=== PATIENT | male | born 1930 | race Caucasian/White ===

== ENCOUNTER 2017-10-13 13:21 | Emergency (ER) | payer MEDICARE, BC ==
--- NOTE | 2017-10-13 14:19 | RAD ---
RIGHT HIP TWO VIEWS: History: Right hip pain. FINDINGS: Mild joint space narrowing with moderate osteophytosis and subchondral sclerosis. Slight irregularity of the articular surface contour of the femoral head. No acute fracture, dislocation, or aggressive osseous erosions. IMPRESSION: Moderate osteoarthritic changes right hip. POS: [facility]
--- NOTE | 2017-10-13 14:20 | RAD ---
PELVIS ONE VIEW: History: Pain. FINDINGS: Bony pelvis is intact. Sacral ala are preserved. Contour of the left and right femoral head are maint ained. Mild degenerative changes are noted. No hip fracture. IMPRESSION: Mild degenerative change of the right and left hip. POS: [facility]
[2017-10-13] MEDS ORDERED: Ketorolac Tromethamine 30 MG/ML VIAL ONE (14:48)
== END 2017-10-13 15:00 | disposition home or self-care (01) ==
LOC: ERS 13:21
DX: M16.11 Unilateral primary osteoarthritis, right hip (principal); I48.91 Unspecified atrial fibrillation; E03.9 Hypothyroidism, unspecified; I10 Essential (primary) hypertension; Z85.46 Personal history of malignant neoplasm of prostate; Z79.899 Other long term (current) drug therapy
CPT/HCPCS: 72170; 96372; J1885

== ENCOUNTER 2017-11-14 04:40 | Emergency (ER) | payer MEDICARE, BC ==
--- NOTE | 2017-11-14 11:17 | CT ---
PRELIMINARY REPORT/[facility]/EMERGENTY AFTER-HOURS PROCEDURE CT Head Without Intravenous Contrast CLINICAL HISTORY: The patient is a 87 years male; Injury or trauma; Fall; Initial encounter; Abrasion; Head, generalize d; Patient HX: Fall tonight - C/O head lac - denies neck pain - denies loc - no other complaints Exam ination order is timed 11/14/2017 5:09 AM. TECHNIQUE: Axial computed tomography images of the head/brain without intravenous contrast. COMPARISON: No relevant prior studies available. FINDINGS: BRAIN: There is no acute intracranial hemorrhage. There is mild lucency in the cerebral white matter, likely microvascular disease although non-specific. Higgins white differentiation is intact. There are no extra-axial fluid collections. No evidence of mass. There is no mass effect or midline shift. VENTRICLES: The ventricles and sulci are proportionally enlarged, consistent with age-related volume loss / atrophy. No hydrocephalus. BONES/JOINTS: No acute fracture. SOFT TISSUES: Unremarkable as visualized. VASCULATURE: There is vascular calcification. SINUSES: Unremarkable as visualized. No acute sinusitis. MASTOID AIR CELLS: Unremarkable as visualized. No mastoid effusion. IMPRESSION: 1. No evidence of acute intracranial abnormality. No evidence of acute infarction, hemorrhage, or mas s. 2. Senescent changes. Thank you for allowing us to participate in the care of your patient. Dictated and Authenticated by: Yaneth Shaver MD 11/14/2017 5:33 AM Central Time ([place] & [place]) FINAL REPORT NONCONTRAST HEAD CT: Date: 11/14/17 HISTORY: Fall. Head laceration. Pain. FINDINGS: This report is in agreement with the preliminary report by [facility]. No intracranial post-traumatic seque lae. POS: [facility]
== END 2017-11-14 06:08 | disposition home or self-care (01) ==
LOC: ERS 04:40
DX: S01.01XA Laceration without foreign body of scalp, initial encounter (principal); I48.91 Unspecified atrial fibrillation; E03.9 Hypothyroidism, unspecified; I10 Essential (primary) hypertension; Z79.899 Other long term (current) drug therapy; W01.198A Fall on same level from slipping, tripping and stumbling with subsequent striking against other object, initial encounter
CPT/HCPCS: 12001; 70450

== ENCOUNTER 2017-12-08 19:32 | Emergency (ER) | payer MEDICARE, BC ==
[2017-12-08] MEDS ORDERED: Ketorolac Tromethamine 30 MG/ML VIAL ONE (21:01)
--- NOTE | 2017-12-08 21:18 | RAD ---
RIGHT KNEE: 12/08/17 Four views. HISTORY: Knee pain. There are moderate degenerative changes present. There is medial joint narrowing. Hypertrophic spurri ng from all joint compartments. Prominent degenerative change at the patellofemoral joint. No evidenc e of joint effusion. No evidence of fracture or acute abnormality. IMPRESSION: Moderate degenerative changes right knee. POS: [facility]
== END 2017-12-08 21:30 | disposition home or self-care (01) ==
LOC: ERS 19:32
DX: M25.561 Pain in right knee (principal); I48.91 Unspecified atrial fibrillation; I10 Essential (primary) hypertension; E03.9 Hypothyroidism, unspecified
CPT/HCPCS: 96372; J1885

== ENCOUNTER 2017-12-13 07:33 | Emergency (ER) | payer MEDICARE, BC ==
[2017-12-13] MEDS ORDERED: Ondansetron ODT 4 MG TAB ONE (08:49)
--- NOTE | 2017-12-13 09:16 | RAD ---
RIGHT HIP 2 VIEWS: Date: 12/13/17 HISTORY: Pain without trauma. COMPARISON: Radiograph from 10/13/17. FINDINGS: There is complete collapse of the right femoral head. There is developing early secondary osteoarthri tic changes. Right obturator ring is intact. IMPRESSION: Complete articular surface collapse of the right femoral head. This may be sequelae of avascular necr osis, less likely marrow infiltrative process. POS: [facility]
--- NOTE | 2017-12-13 09:17 | RAD ---
PELVIS AP STANDARD: Date: 12/13/17 HISTORY: Pain without trauma. COMPARISON: Radiograph dated 10/13/17. FINDINGS: There is complete articular surface collapse of the right femoral head. Mild degenerative changes of the left hip. Obturator rings are intact. 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 POS: [facility]
[2017-12-13] MEDS ORDERED: HYDROcodone/Acetaminophen 10/325 mg Tablet ONE (10:13)
== END 2017-12-13 10:17 | disposition home or self-care (01) ==
LOC: ERS 07:33
DX: M25.551 Pain in right hip (principal); I48.91 Unspecified atrial fibrillation; E03.9 Hypothyroidism, unspecified; I10 Essential (primary) hypertension; Z79.899 Other long term (current) drug therapy
CPT/HCPCS: 72170; 96372; J2270; Q0162

== ENCOUNTER 2017-12-14 18:27 | Emergency (ER) | payer MEDICARE, BC ==
[2017-12-14 19:41] LABS: #Eosinphils 0.3 thou/uL (0.0-0.7); #Lymphocytes 0.9 thou/uL (1.20-3.40); #Monocytes 0.7 thou/uL (0.11-0.59); %Basophils 0.4 % (0.0-1.0); %Eosinophils 3.5 % (0.0-10.0); %Lymphocytes 9.8 % (21.0-51.0); %Monocytes 7.7 % (0.0-10.0); %Neutrophils 78.6 % (42.0-75.0); Hemoglobin 12.7 g/dL (14.0-18.0); Mean Corpuscular HGB CONC 35.2 g/dL (32.0-36.0); Platelet Count 168 thou/uL (130-400); RBC Distribution Width 11.4 % (11.5-14.5); Red Blood Cell (RBC) Count 3.53 mill/uL (4.70-6.10); White Blood Cell (WBC) Count 8.9 thou/uL (4.8-10.8)
[2017-12-14 19:48] LABS: INR-International Normal Ratio 1.1; PTT 33.8 SEC (22.9-36.1); Prothrombin Time 13.8 SEC (12.0-14.7)
[2017-12-14 19:58] LABS: ALT (SGPT) 18 U/L (8-55); AST (SGOT) 20 U/L (5-34); Albumin 3.8 g/dL (3.4-4.8); Alkaline Phosphatase 120 U/L (40-150); Anion Gap 13 mmol/L (10-20); BUN (Urea Nitrogen) 38 mg/dL (8.4-25.7); Bilirubin, Total 0.7 mg/dL (0.2-1.2); Calc. Creatinine Clearance 0 mL/min (70-130); Carbon Dioxide 24 mmol/L (23-31); Chloride 106 mmol/L (98-107); Estimated GFR-MDRD 41; Globulin 3.4 g/dL (2.4-3.5); Glucose 105 mg/dL (83-110); Potassium 5.2 mmol/L (3.5-5.1); Protein, Total 7.2 g/dL (5.8-8.1)
[2017-12-14 20:03] LABS: Sodium 138 mmol/L (136-145)
--- NOTE | 2017-12-14 21:44 | CT ---
CT PELVIS: 12/14/17 HISTORY: Right hip pain. Unable to bear weight. Patient has a hip replacement planned on Monday. COMPARISON: None. CORRELATION: Pelvic radiograph 12/13/17. FINDINGS: Visualized alimentary canal and pelvic structures are unremarkable. There are bilateral inguinal bhupinder ias containing fat. There is preservation of the sacral ala. There is no evidence of a sacral fracture. The bony pelvis i s intact. There is mild degenerative change with osteophyte formation in the left hip joint space. There is collapse of the right femoral head with sclerosis and remodeling. There is hyperdensity invo lving the right hip joint space with increased fluid. There is thinning of the posterior acetabulum. The constellation of findings may be due to vascular necrosis with remodeling. The possibility of a s eptic joint cannot be excluded. 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 IMPRESSION: Findings in the right hip as described above. Differential considerations include avascular necrosis versus a septic joint with resultant collapse and remodeling of the femoral head and posterior acetab ulum. POS: [facility]
== END 2017-12-15 01:07 ==
LOC: ERS 18:27
DX: M25.551 Pain in right hip (principal); E86.0 Dehydration; R26.2 Difficulty in walking, not elsewhere classified; I48.91 Unspecified atrial fibrillation; E03.9 Hypothyroidism, unspecified; I10 Essential (primary) hypertension; Z79.899 Other long term (current) drug therapy
CPT/HCPCS: 36415; 72192; 80053; 85025; 85610; 85730; 86850; 86900; 86901; 93005

== ENCOUNTER 2017-12-18 | Outpatient (CLI) | payer MEDICARE, BC | END 2017-12-18 14:02 | disposition home or self-care (01) | DX: Z01.818 Encounter for other preprocedural examination (principal); M16.11 Unilateral primary osteoarthritis, right hip ==

== ENCOUNTER 2017-12-18 14:00 | Inpatient (IN) | payer MEDICARE, BC ==
[2017-12-18 14:23] VITALS: BMI 26.4
[2017-12-19] MEDS ORDERED: Sodium Chloride 0.9% 100 ML ONE (11:39)
[2017-12-19] MEDS ORDERED: CEFAZOLIN/Water 2 GM/20 ML SYRINGE ONE (11:39)
[2017-12-19] MEDS ORDERED: Vancomycin HCl 1.5 GM in Sodium Chloride 0.9% 250 ML 300 ML IVPB SCH (11:45)
[2017-12-19] MEDS ORDERED: Zolpidem Tartrate 5 MG TAB PO PRN ×2 (11:49→13:00)
[2017-12-19] MEDS ORDERED: Fentanyl 100 MCG/2 ML VIAL SLOW IVP PRN (11:49)
[2017-12-19] MEDS ORDERED: Promethazine HCl 25 MG/ML VIAL IM PRN ×2 (11:49→13:00)
[2017-12-19] MEDS ORDERED: Acetaminophen 325 MG TAB PO PRN (11:49)
[2017-12-19] MEDS ORDERED: diphenhydrAMINE 25 MG CAP PO PRN ×3 (11:49→13:00)
[2017-12-19] MEDS ORDERED: traMADol HCl 50 MG TAB PO PRN ×3 (11:49→13:00)
[2017-12-19] MEDS ORDERED: Ondansetron HCl/PF 4 MG/2 ML Vial IVP PRN ×3 (11:49→14:17)
[2017-12-19] MEDS ORDERED: HYDROcodone/Acetaminophen 10/325 mg Tablet PO PRN ×2 (11:49)
[2017-12-19] MEDS ORDERED: ACETAMINOPHEN PO PRN (11:51)
[2017-12-19] MEDS ORDERED: Cepastat Lozenges 1 LOZ PO PRN (11:51)
[2017-12-19] MEDS ORDERED: HYDROcodone/Acetaminophen 5/325 mg Tablet PO PRN ×3 (11:51→13:00)
[2017-12-19] MEDS ORDERED: cloNIDine 0.1 MG TAB PO PRN (11:51)
[2017-12-19] MEDS ORDERED: guaiFENesin 100 MG/5 ML UDCUP PO PRN (11:51)
[2017-12-19] MEDS ORDERED: Bisacodyl 10 MG SUPP PR PRN (11:51)
[2017-12-19] MEDS ORDERED: Milk Of Magnesia 30 ML UDCUP PO PRN (11:51)
[2017-12-19] MEDS ORDERED: Loperamide HCl 2 MG CAP PO PRN (11:51)
[2017-12-19] MEDS ORDERED: Mag-Al 1200 mg/1200 mg/30 ML UDCUP PO PRN (12:11)
[2017-12-19] MEDS ORDERED: Naloxone HCl 0.4 mg/ml Vial IV PRN (13:00)
[2017-12-19] MEDS ORDERED: Fentanyl 100 MCG/2 ML VIAL ONE (13:00)
[2017-12-19] MEDS ORDERED: diphenhydrAMINE 50 MG/ML VIAL IM PRN (13:00)
[2017-12-19] MEDS ORDERED: Naloxone HCl 0.4 mg/ml Vial IVP PRN (13:00)
[2017-12-19] MEDS ORDERED: Acetaminophen 500 MG TAB PO PRN (13:00)
[2017-12-19] MEDS ORDERED: Bupivacaine 0.25% 10 ML VIAL EPIDURAL PRN (13:00)
[2017-12-19] MEDS ORDERED: Promethazine HCl 25 MG SUPP PR PRN (13:00)
[2017-12-19] MEDS ORDERED: Hydrocerin (Eucerin) Cream 120 gm Jar TOP PRN (13:00)
[2017-12-19] MEDS ORDERED: fentaNYL Citrate/PF 1,250 MCG, Bupivacaine 25 ML in Sodium Chloride 0.9% 250 ML 200 ML EPIDURAL SCH (13:00)
[2017-12-19] MEDS ORDERED: diphenhydrAMINE 50 MG/ML VIAL IVP PRN (13:00)
[2017-12-19] MEDS ORDERED: Bupivacaine/Epinephrine 0.25% 30 ML VIAL ONE (13:11)
--- NOTE | 2017-12-19 15:14 | RAD ---
TWO VIEWS RIGHT HIP: Comparison: 12-13-17 History: Status post right hip arthroplasty. FINDINGS: Two views right hip shows the patient to be status post right hip arthroplasty without perihardware l ucency of fracture. Air in the soft tissues is from recent surgery. IMPRESSION: Status post right hip arthroplasty without evidence of complication. POS: [facility]
[2017-12-19] MEDS ORDERED: Lidocaine 1% PF 5 ML VIAL ONE (15:15)
[2017-12-19] MEDS ORDERED: ePHEDrine/0.9% NaCl/PF SYRINGE 50 mg/10 ml ONE (15:15)
[2017-12-19] MEDS ORDERED: Ondansetron HCl/PF 4 MG/2 ML Vial ONE (15:15)
[2017-12-19] MEDS ORDERED: PHENYLEPHRINE-NS 100 MCG/ML 10 ML SYRINGE ONE (15:15)
[2017-12-19] MEDS ORDERED: PROPOFOL 200 MG/20 ML VIAL ONE (15:15)
[2017-12-19] MEDS: Sodium Chloride 0.9% 1,000 ML IV SCH (19:06)
[2017-12-19] MEDS: CEFAZOLIN/Water 2 GM/20 ML SYRINGE SLOW IVP SCH (22:01)
[2017-12-19] MEDS: Ferrous Gluconate 324 MG TAB PO SCH (22:01)
[2017-12-19] MEDS: Famotidine 20 MG TAB PO SCH (22:01)
[2017-12-19] MEDS: Aspirin 325 MG TAB PO SCH (22:01)
[2017-12-19] MEDS: Metoprolol Tartrate 25 MG TAB PO SCH (22:02)
[2017-12-19] MEDS: Flecainide 50 MG TAB PO SCH (22:02)
[2017-12-20] MEDS: Sodium Chloride 0.9% 1,000 ML IV SCH ×3 (03:57→17:52)
[2017-12-20] MEDS: CEFAZOLIN/Water 2 GM/20 ML SYRINGE SLOW IVP SCH (04:06)
[2017-12-20 05:29] LABS: Hemoglobin 12.5 g/dL (14.0-18.0); Mean Corpuscular HGB CONC 35.7 g/dL (32.0-36.0); Mean Corpuscular Hemoglobin 36.6 pg (27.0-31.0); Mean Platelet Volume 7.4 fL (7.4-10.4); Platelet Count 195 thou/uL (130-400); RBC Distribution Width 11.3 % (11.5-14.5); Red Blood Cell (RBC) Count 3.41 mill/uL (4.70-6.10); White Blood Cell (WBC) Count 7.9 thou/uL (4.8-10.8)
[2017-12-20] MEDS: Levothyroxine Sodium 50 MCG TAB PO SCH (06:15)
[2017-12-20] MEDS ORDERED: Pantoprazole 40 MG GRANULES PACKET PO SCH (09:19)
[2017-12-20] MEDS: Aspirin 325 MG TAB PO SCH ×2 (09:42→21:54)
[2017-12-20] MEDS: Losartan 25 MG TAB PO SCH (09:43)
[2017-12-20] MEDS: Metoprolol Tartrate 25 MG TAB PO SCH ×2 (09:43→21:55)
[2017-12-20] MEDS: Multivitamin W/ Minerals 1 TAB PO SCH (09:43)
[2017-12-20] MEDS: Amlodipine 5 MG TAB PO SCH (09:43)
[2017-12-20] MEDS: Flecainide 50 MG TAB PO SCH ×2 (09:43→21:55)
[2017-12-20] MEDS: Ferrous Gluconate 324 MG TAB PO SCH ×2 (09:43→21:54)
[2017-12-20] MEDS: Senokot S 8.6-50 MG TAB PO SCH ×2 (09:43→21:54)
[2017-12-20] MEDS: Digoxin 0.125 MG TAB PO SCH (09:44)
[2017-12-20] MEDS: Famotidine 20 MG TAB PO SCH ×2 (09:44→21:54)
[2017-12-20 09:53] LABS: Anion Gap 12 mmol/L (10-20); BUN (Urea Nitrogen) 30 mg/dL (8.4-25.7); Calc. Creatinine Clearance 59 mL/min (70-130); Calcium 8.7 mg/dL (7.8-10.44); Carbon Dioxide 25 mmol/L (23-31); Chloride 106 mmol/L (98-107); Estimated GFR-MDRD 68; Glucose 99 mg/dL (83-110); Potassium 4.6 mmol/L (3.5-5.1); Sodium 138 mmol/L (136-145)
[2017-12-20] MEDS ORDERED: BUPIVACAINE EPIDURAL SCH (14:00)
[2017-12-20] MEDS ORDERED: SODIUM CHLORIDE EPIDURAL SCH (14:00)
--- NOTE | 2017-12-20 14:10 | PDOC.PN ---
- Subjective Encounter Start Date: 12/20/17 Encounter Start Time: 14:08 Subjective: s/p R hip arthroplasty.denies any pain -: care discussed with family.some confusion from Epidural ,but no ac issues - Objective MAR Reviewed: Yes Vital Signs & Weight: Vital Signs (12 hours) Temp Pulse Resp BP BP Pulse Ox 12/20/17 11:55 98 F 82 18 123/70 91 L 12/20/17 09:43 75 129/68 12/20/17 08:00 98.6 F 75 18 12/20/17 07:46 98.6 F 75 18 129/68 91 L 12/20/17 04:30 98.4 F 68 16 114/62 95 Weight Admit Weight 184 lb Weight 184 lb I&O: 12/19/17 12/20/17 12/21/17 06:59 06:59 06:59 Intake Total 320 Output Total 550 Balance -230 Result Diagrams: 12/20/17 04:30 12/20/17 04:28 Additional Labs: Microbiology 12/18/17 20:20 Urine clean catch Urine Culture - Preliminary Laboratory Tests 12/18/17 12/18/17 12/20/17 05:20 16:41 04:28 BUN 42 H 30 H Creatinine 0.96 1.35 H 1.03 labs reviewed Phys Exam - Physical Examination Constitutional: NAD HEENT: PERRLA, moist MMs, sclera anicteric, oral pharynx no lesions Neck: no nodes, no JVD, supple, full ROM Respiratory: no wheezing, no rales, no rhonchi, clear to auscultation bilateral Cardiovascular: RRR, no significant murmur, no rub Gastrointestinal: soft, non-tender, no distention, positive bowel sounds Musculoskeletal: no edema, pulses present Neurological: non-focal, normal sensation, moves all 4 limbs Psychiatric: normal affect, A&O x 3 Skin: no rash Dx/Plan (1) SCOTT (acute kidney injury) Code(s): N17.9 - ACUTE KIDNEY FAILURE, UNSPECIFIED Status: Acute Comment: improving.cont IVF (2) Chronic atrial fibrillation Code(s): I48.2 - CHRONIC ATRIAL FIBRILLATION Status: Chronic (3) HTN (hypertension) Code(s): I10 - ESSENTIAL (PRIMARY) HYPERTENSION Status: Chronic (4) H/O peptic ulcer Code(s): Z87.11 - PERSONAL HISTORY OF PEPTIC ULCER DISEASE Status: Acute (5) H/O prostate cancer Code(s): Z85.46 - PERSONAL HISTORY OF MALIGNANT NEOPLASM OF PROSTATE Status: Chronic (6) S/P total hip arthroplasty Code(s): Z96.649 - PRESENCE OF UNSPECIFIED ARTIFICIAL HIP JOINT Status: Chronic Qualifiers: Laterality: right Qualified Code(s): Z96.641 - Presence of right artificial hip joint - Plan plan discussed w/ family, PT/OT, clinical social work therapist, incentive spirometry, DVT proph w/SCDs ASA BID for DVT prophylaxis -: add prn antihypertensives -: add PPI given h/o duodenal ulcer -: home meds as below -: am labs * . Review of Systems - Review of Systems Constitutional: negative: fever, chills, sweats, weakness, malaise, other ENT: negative: Ear Pain, Ear Discharge, Nose Pain, Nose Discharge, Nose Congestion, Mouth Pain, Mouth Swelling, Throat Pain, Throat Swelling, Other Respiratory: negative: Cough, Dry, Shortness of Breath, Hemoptysis, SOB with Excertion, Pleuritic Pain, Sputum, Wheezing Cardiovascular: negative: chest pain, palpitations, orthopnea, paroxysmal nocturnal dyspnea, edema, light headedness, other Gastrointestinal: negative: Nausea, Vomiting, Abdominal Pain, Diarrhea, Constipation, Melena, Hematochezia, Other Genitourinary: negative: Dysuria, Frequency, Incontinence, Hematuria, Retention , Other Musculoskeletal: negative: Neck Pain, Shoulder Pain, Arm Pain, Back Pain, Hand Pain, Leg Pain, Foot Pain, Other Neurological: negative: Weakness, Numbness, Incoordination, Change in Speech, Confusion, Seizures, Other - Medications/Allergies Allergies/Adverse Reactions: Allergies Allergy/AdvReac Type Severity Reaction Status Date / Time lisinopril Allergy Verified 12/18/17 14:24 Sulfa (Sulfonamide Allergy Verified 12/18/17 14:24 Antibiotics) Medications: Current Medications Acetaminophen (Tylenol) 1,000 mg PO Q6H PRN PRN Reason: Headache/Fever or Pain Hydrocodone Bitart/Acetaminophen ([place] 5/325) 1 tab PO Q4H PRN PRN Reason: Mild Pain 0-3 Hydrocodone Bitart/Acetaminophen ([place] 5/325) 2 tab PO Q4H PRN PRN Reason: For Moderate Pain 4-6 Al Hydroxide/Mg Hydroxide (Maalox) 30 ml PO Q6H PRN PRN Reason: Indigestion Amlodipine Besylate (Norvasc) 5 mg PO DAILY [facility] Last Admin: 12/20/17 09:43 Dose: 5 mg Aspirin (Aspirin) 325 mg PO BID [facility] Last Admin: 12/20/17 09:42 Dose: 325 mg Bisacodyl (Dulcolax) 10 mg [place] DAILY PRN PRN Reason: Constipation Clonidine (Catapres) 0.1 mg PO Q6HR PRN PRN Reason: Hypertension Digoxin (Lanoxin) 0.125 mg PO DAILY [facility] Last Admin: 12/20/17 09:44 Dose: Not Given Diphenhydramine HCl (Benadryl) 25 mg PO Q3H PRN PRN Reason: Itching Diphenhydramine HCl (Benadryl) 25 mg IM Q3H PRN PRN Reason: Itching Diphenhydramine HCl (Benadryl) 25 mg IVP Q3H PRN PRN Reason: Itching Emollient Cream (Hydrocerin Cream) 0 gm TOP PRN PRN PRN Reason: Itching Famotidine (Pepcid) 20 mg PO BID [facility] Last Admin: 12/20/17 09:44 Dose: 20 mg Ferrous Gluconate (Fergon) 324 mg PO BID [facility] Last Admin: 12/20/17 09:43 Dose: 324 mg Flecainide Acetate (Tambocor) 50 mg PO Q12HR [facility] Last Admin: 12/20/17 09:43 Dose: 50 mg Glucagon (Glucagon) 1 mg IM ASDIR PRN PRN Reason: Hypoglycemia Guaifenesin (Robitussin) 1,000 mg PO Q4HR PRN PRN Reason: Cough Sodium Chloride (Normal Saline 0.9%) 1,000 mls @ 100 mls/hr IV .Q10H [facility] Last Admin: 12/20/17 08:59 Dose: Not Given Bupivacaine HCl 25 ml/ Sodium (Chloride) 250 mls @ 8 mls/hr EPIDURAL INF [facility] Iron/Minerals/Multivitamins (Theragran M) 1 tab PO DAILY [facility] Last Admin: 12/20/17 09:43 Dose: 1 tab Lactulose (Lactulose) 20 gm PO TID PRN PRN Reason: Constipation Levothyroxine Sodium (Synthroid) 50 mcg PO 0600 [facility] Last Admin: 12/20/17 06:15 Dose: 50 mcg Loperamide HCl (Imodium) 2 mg PO ASDIR PRN PRN Reason: Diarrhea/Loose Stools Losartan Potassium (Cozaar) 100 mg PO DAILY [facility] Last Admin: 12/20/17 09:43 Dose: 100 mg Magnesium Hydroxide (Milk Of Magnesium) 30 ml PO ASDIR PRN PRN Reason: Constipation Metoprolol Tartrate (Lopressor) 25 mg PO BID [facility] Last Admin: 12/20/17 09:43 Dose: 25 mg Miscellaneous Information (Communication Order-Pharmacy) 1 each FS ASDIR [facility] Naloxone HCl (Narcan) 0.2 mg IV Q5MIN PRN PRN Reason: RR <=8 OR OBTUNDED/UNAROUSABLE Naloxone HCl (Narcan) 0.1 mg IVP Q15MIN PRN PRN Reason: URINARY RETENTION Ondansetron HCl (Zofran) 4 mg IVP Q6H PRN PRN Reason: Nausea/Vomiting Promethazine HCl (Phenergan) 12.5 mg IM Q4H PRN PRN Reason: Nausea Promethazine HCl (Phenergan Suppository) 25 mg LA Q4H PRN PRN Reason: Nausea/Vomiting Senna/Docusate Sodium (Senokot S) 2 tab PO BID [facility] Last Admin: 12/20/17 09:43 Dose: 2 tab Sodium Chloride (Flush - Normal Saline) 10 ml IVF PRN PRN PRN Reason: Saline Flush Throat Lozenges (Cepastat Lozenges) 1 kimberlee PO BID PRN PRN Reason: SORE THROAT Tramadol HCl (Ultram) 50 mg PO Q6H PRN PRN Reason: Mild Pain 1-3 Tramadol HCl (Ultram) 100 mg PO Q6H PRN PRN Reason: Moderate Pain 4-6 Zolpidem Tartrate (Ambien) 5 mg PO HSPRN PRN PRN Reason: Insomnia
[2017-12-21] MEDS: Sodium Chloride 0.9% 1,000 ML IV SCH ×2 (05:57→15:03)
[2017-12-21 06:07] LABS: Hemoglobin 12.1 g/dL (14.0-18.0); Mean Corpuscular HGB CONC 34.4 g/dL (32.0-36.0); Mean Corpuscular Hemoglobin 35.6 pg (27.0-31.0); Mean Platelet Volume 7.9 fL (7.4-10.4); Platelet Count 184 thou/uL (130-400); RBC Distribution Width 11.2 % (11.5-14.5); White Blood Cell (WBC) Count 9.8 thou/uL (4.8-10.8)
[2017-12-21] MEDS: Levothyroxine Sodium 50 MCG TAB PO SCH (06:49)
[2017-12-21] MEDS: Digoxin 0.125 MG TAB PO SCH (09:01)
[2017-12-21] MEDS: Aspirin 325 MG TAB PO SCH ×2 (09:12→20:41)
[2017-12-21] MEDS: Flecainide 50 MG TAB PO SCH ×2 (09:12→20:42)
[2017-12-21] MEDS: Senokot S 8.6-50 MG TAB PO SCH ×2 (09:12→20:42)
[2017-12-21] MEDS: Metoprolol Tartrate 25 MG TAB PO SCH ×2 (09:13→20:42)
[2017-12-21] MEDS: Losartan 25 MG TAB PO SCH (09:13)
[2017-12-21] MEDS: Famotidine 20 MG TAB PO SCH ×2 (09:13→20:42)
[2017-12-21] MEDS: Multivitamin W/ Minerals 1 TAB PO SCH (09:13)
[2017-12-21] MEDS: Ferrous Gluconate 324 MG TAB PO SCH ×2 (09:13→20:42)
[2017-12-21] MEDS: Amlodipine 5 MG TAB PO SCH (09:13)
[2017-12-21] MEDS ORDERED: Sodium Chloride 0.9% 500 ML IV SCH (12:15)
--- NOTE | 2017-12-21 16:49 | PDOC.PN ---
- Subjective Encounter Start Date: 12/21/17 Encounter Start Time: 16:48 Subjective: pt seen and examined at bedside. asleep but easily arousable -: no acute events. no new complaints - Objective MAR Reviewed: Yes Vital Signs & Weight: Vital Signs (12 hours) Temp Pulse Resp BP BP BP BP 12/21/17 16:43 97.9 F 79 18 117/58 L 12/21/17 12:11 97.6 F 76 18 113/63 12/21/17 11:12 96/50 L 119/65 12/21/17 09:13 84 147/77 H 12/21/17 09:10 98.3 F 84 18 12/21/17 07:09 98.3 F 84 18 147/77 H 12/21/17 05:30 Pulse Ox 12/21/17 16:43 93 L 12/21/17 12:11 92 L 12/21/17 11:12 12/21/17 09:13 12/21/17 09:10 12/21/17 07:09 91 L 12/21/17 05:30 92 L Weight Admit Weight 184 lb Weight 184 lb I&O: 12/20/17 12/21/17 12/22/17 06:59 06:59 06:59 Intake Total 320 1430 Output Total 550 2325 Balance -230 -895 Result Diagrams: 12/21/17 05:16 12/20/17 04:28 Additional Labs: Laboratory Tests 12/18/17 12/18/17 12/20/17 05:20 16:41 04:28 BUN 33 H 42 H 30 H labs reviewed Phys Exam - Physical Examination Constitutional: NAD HEENT: PERRLA, moist MMs, sclera anicteric, oral pharynx no lesions, 2+ tonsils Neck: no nodes, no JVD, supple, full ROM Respiratory: no wheezing, no rales, no rhonchi, clear to auscultation bilateral Cardiovascular: RRR, no significant murmur, no rub Gastrointestinal: soft, non-tender, no distention, positive bowel sounds Musculoskeletal: no edema, pulses present Dx/Plan (1) SCOTT (acute kidney injury) Code(s): N17.9 - ACUTE KIDNEY FAILURE, UNSPECIFIED Status: Chronic Comment: improving.cont IVF (2) Chronic atrial fibrillation Code(s): I48.2 - CHRONIC ATRIAL FIBRILLATION Status: Chronic (3) HTN (hypertension) Code(s): I10 - ESSENTIAL (PRIMARY) HYPERTENSION Status: Chronic (4) H/O peptic ulcer Code(s): Z87.11 - PERSONAL HISTORY OF PEPTIC ULCER DISEASE Status: Acute (5) H/O prostate cancer Code(s): Z85.46 - PERSONAL HISTORY OF MALIGNANT NEOPLASM OF PROSTATE Status: Chronic (6) S/P total hip arthroplasty Code(s): Z96.649 - PRESENCE OF UNSPECIFIED ARTIFICIAL HIP JOINT Status: Chronic Qualifiers: Laterality: right Qualified Code(s): Z96.641 - Presence of right artificial hip joint - Plan BP,HR controlled. cont meds as below -: BUN/Renal Fx better.monitor -: cont IVF. -: Home meds as below. -: Hemodynamically stable.IM team will follow * . Review of Systems - Review of Systems Constitutional: negative: fever, chills, sweats, weakness, malaise, other ENT: negative: Ear Pain, Ear Discharge, Nose Pain, Nose Discharge, Nose Congestion, Mouth Pain, Mouth Swelling, Throat Pain, Throat Swelling, Other Respiratory: negative: Cough, Dry, Shortness of Breath, Hemoptysis, SOB with Excertion, Pleuritic Pain, Sputum, Wheezing Cardiovascular: negative: chest pain, palpitations, orthopnea, paroxysmal nocturnal dyspnea, edema, light headedness, other Gastrointestinal: negative: Nausea, Vomiting, Abdominal Pain, Diarrhea, Constipation, Melena, Hematochezia, Other Genitourinary: negative: Dysuria, Frequency, Incontinence, Hematuria, Retention , Other Musculoskeletal: Leg Pain. negative: Neck Pain, Shoulder Pain, Arm Pain, Back Pain, Hand Pain, Foot Pain, Other Skin: negative: Rash, Lesions, Roni, Bruising, Other Neurological: negative: Weakness, Numbness, Incoordination, Change in Speech, Confusion, Seizures, Other - Medications/Allergies Allergies/Adverse Reactions: Allergies Allergy/AdvReac Type Severity Reaction Status Date / Time lisinopril Allergy Verified 12/18/17 14:24 Sulfa (Sulfonamide Allergy Verified 12/18/17 14:24 Antibiotics) Medications: Current Medications Acetaminophen (Tylenol) 1,000 mg PO Q6H PRN PRN Reason: Headache/Fever or Pain Last Admin: 12/20/17 15:12 Dose: 1,000 mg Hydrocodone Bitart/Acetaminophen ([place] 5/325) 1 tab PO Q4H PRN PRN Reason: Mild Pain 0-3 Hydrocodone Bitart/Acetaminophen ([place] 5/325) 2 tab PO Q4H PRN PRN Reason: For Moderate Pain 4-6 Al Hydroxide/Mg Hydroxide (Maalox) 30 ml PO Q6H PRN PRN Reason: Indigestion Amlodipine Besylate (Norvasc) 5 mg PO DAILY [facility] Last Admin: 12/21/17 09:13 Dose: 5 mg Aspirin (Aspirin) 325 mg PO BID [facility] Last Admin: 12/21/17 09:12 Dose: 325 mg Bisacodyl (Dulcolax) 10 mg [place] DAILY PRN PRN Reason: Constipation Clonidine (Catapres) 0.1 mg PO Q6HR PRN PRN Reason: Hypertension Digoxin (Lanoxin) 0.125 mg PO DAILY [facility] Last Admin: 12/21/17 09:01 Dose: Not Given Diphenhydramine HCl (Benadryl) 25 mg PO Q3H PRN PRN Reason: Itching Diphenhydramine HCl (Benadryl) 25 mg IM Q3H PRN PRN Reason: Itching Diphenhydramine HCl (Benadryl) 25 mg IVP Q3H PRN PRN Reason: Itching Emollient Cream (Hydrocerin Cream) 0 gm TOP PRN PRN PRN Reason: Itching Famotidine (Pepcid) 20 mg PO BID [facility] Last Admin: 12/21/17 09:13 Dose: 20 mg Ferrous Gluconate (Fergon) 324 mg PO BID [facility] Last Admin: 12/21/17 09:13 Dose: 324 mg Flecainide Acetate (Tambocor) 50 mg PO Q12HR [facility] Last Admin: 12/21/17 09:12 Dose: 50 mg Glucagon (Glucagon) 1 mg IM ASDIR PRN PRN Reason: Hypoglycemia Guaifenesin (Robitussin) 1,000 mg PO Q4HR PRN PRN Reason: Cough Sodium Chloride (Normal Saline 0.9%) 1,000 mls @ 100 mls/hr IV .Q10H [facility] Last Admin: 12/21/17 15:03 Dose: Not Given Bupivacaine HCl 25 ml/ Sodium (Chloride) 250 mls @ 8 mls/hr EPIDURAL INF [facility] Last Admin: 12/20/17 17:43 Dose: 250 mls Iron/Minerals/Multivitamins (Theragran M) 1 tab PO DAILY [facility] Last Admin: 12/21/17 09:13 Dose: 1 tab Lactulose (Lactulose) 20 gm PO TID PRN PRN Reason: Constipation Levothyroxine Sodium (Synthroid) 50 mcg PO 0600 [facility] Last Admin: 12/21/17 06:49 Dose: 50 mcg Loperamide HCl (Imodium) 2 mg PO ASDIR PRN PRN Reason: Diarrhea/Loose Stools Losartan Potassium (Cozaar) 100 mg PO DAILY [facility] Last Admin: 12/21/17 09:13 Dose: 100 mg Magnesium Hydroxide (Milk Of Magnesium) 30 ml PO ASDIR PRN PRN Reason: Constipation Metoprolol Tartrate (Lopressor) 25 mg PO BID [facility] Last Admin: 12/21/17 09:13 Dose: 25 mg Miscellaneous Information (Communication Order-Pharmacy) 1 each FS ASDIR [facility] Naloxone HCl (Narcan) 0.2 mg IV Q5MIN PRN PRN Reason: RR <=8 OR OBTUNDED/UNAROUSABLE Naloxone HCl (Narcan) 0.1 mg IVP Q15MIN PRN PRN Reason: URINARY RETENTION Ondansetron HCl (Zofran) 4 mg IVP Q6H PRN PRN Reason: Nausea/Vomiting Promethazine HCl (Phenergan) 12.5 mg IM Q4H PRN PRN Reason: Nausea Promethazine HCl (Phenergan Suppository) 25 mg [place] Q4H PRN PRN Reason: Nausea/Vomiting Senna/Docusate Sodium (Senokot S) 2 tab PO BID [facility] Last Admin: 12/21/17 09:12 Dose: 2 tab Sodium Chloride (Flush - Normal Saline) 10 ml IVF PRN PRN PRN Reason: Saline Flush Last Admin: 12/21/17 09:12 Dose: 10 ml Throat Lozenges (Cepastat Lozenges) 1 kimberlee PO BID PRN PRN Reason: SORE THROAT Tramadol HCl (Ultram) 50 mg PO Q6H PRN PRN Reason: Mild Pain 1-3 Last Admin: 12/20/17 21:58 Dose: 50 mg Tramadol HCl (Ultram) 100 mg PO Q6H PRN PRN Reason: Moderate Pain 4-6 Zolpidem Tartrate (Ambien) 5 mg PO HSPRN PRN PRN Reason: Insomnia
--- NOTE | 2017-12-21 20:28 | OP ---
PREOPERATIVE DIAGNOSIS: Degenerative joint disease, right hip. POSTOPERATIVE DIAGNOSIS: Degenerative joint disease, right hip. TITLE OF PROCEDURE: Right total hip arthroplasty using [place] Accolade #5.5 stem with a 56 mm cup. SURGEON: Tenzin Lucio M.D. MACHINE BURRER: Joce Phoenix PA-C. BLOOD LOSS: 200 mL SPECIMEN: None. DRAINS: None. COMPLICATIONS: None. PROCEDURE IN DETAIL: After informed consent was obtained in the preoperative holding area, the larissa ent was taken to the operative suite where general anesthesia was induced. The patient was then posi tioned in the lateral decubitus position. The hip was then prepped and draped in usual sterile fashi on. The patient received preoperative antibiotics. Prior to incision, time-out was called and all m embers of the surgical team agreed upon site, surgeon, and patient. After this, a longitudinal incis ion was made directly over the trochanter, noted by palpation extending 2 fingerbreadths above and be low the trochanter. The deeper subcutaneous layer was undermined with Bovie electrocautery. The sammie otibial band was encountered and incised sharply and the plane below this was developed bluntly. A C harnley retractor was placed to hold this opened. The lateral aspect of the trochanter and the abduc tor muscles were encountered and then reflected anteriorly off the trochanter using Bovie electrocaut christian. Once this was completed, the anterior capsule was then encountered and identified and copious c apsulotomy was carried out, exposing the femoral neck and head. Dislocation maneuver was then perform ed and an in situ provisional neck cut was then made using the oscillating saw. Attention was then t urned to acetabular preparation and sequential reaming was carried out up to the appropriate diameter and a trial was then malleted into place with good firm resistance and no pullout. The permanent ac etabular shell was then malleted squarely into place, as was the appropriate liner. Once completed, the wound was copiously irrigated and attention was then turned to femoral preparation. Flexion and e xternal rotation was performed of the exposed thigh and femoral elevators were then placed at the pro ximal aspect of the wound. Canal finder was used to establish the length of the canal and sequential reaming was carried out, followed by broaching. Once the appropriate stability was established with the trial broaches with both flexion, extension and rotational stability, we did trial with neutral and 2 mm offset incremental necks. Once the appropriate size was decided upon, with good stability n oted with flexion, extension, internal and external rotation and shuck being negative, we removed the femoral trial broach and malletted into place the permanent prosthesis with good firm fit, which was also stable to rotation. Again, the hip felt very stable to flexion, extension, internal and early childhood education worker al rotation. Leg lengths appeared near anatomic clinically and we were quite happy with prosthesis p lacement. Copious irrigation was then carried out through the entirety of the wound. Primary closur e of the abductors was accomplished with interrupted #2 Vicryl [id number] stitches and the IT ba nd was then closed with interrupted #2 Vicryl, oversewn with a #2 running barbed Quill stitch. Subcu taneous fascia was closed with running barbed Quill stitch and a subcuticular Monocryl barbed Quill s titch was used for skin closure and augmented with skin cement. A sterile dressing was applied. The procedure was terminated without any complication. All counts were correct. The patient was awakene d in the operative suite and taken to the recovery room in stable condition.
[2017-12-22] MEDS: Sodium Chloride 0.9% 1,000 ML IV SCH ×2 (00:39→09:04)
[2017-12-22 04:39] LABS: Mean Corpuscular HGB CONC 34.3 g/dL (32.0-36.0); Mean Corpuscular Hemoglobin 35.8 pg (27.0-31.0); Mean Platelet Volume 7.7 fL (7.4-10.4); Platelet Count 210 thou/uL (130-400); RBC Distribution Width 11.1 % (11.5-14.5); Red Blood Cell (RBC) Count 3.36 mill/uL (4.70-6.10)
[2017-12-22] MEDS: Levothyroxine Sodium 50 MCG TAB PO SCH (05:40)
[2017-12-22] MEDS: Famotidine 20 MG TAB PO SCH (08:59)
[2017-12-22] MEDS: Losartan 25 MG TAB PO SCH (08:59)
[2017-12-22] MEDS: Aspirin 325 MG TAB PO SCH (08:59)
[2017-12-22] MEDS: Multivitamin W/ Minerals 1 TAB PO SCH (08:59)
[2017-12-22] MEDS: Senokot S 8.6-50 MG TAB PO SCH (09:00)
[2017-12-22] MEDS: Metoprolol Tartrate 25 MG TAB PO SCH (09:00)
[2017-12-22] MEDS: Amlodipine 5 MG TAB PO SCH (09:00)
[2017-12-22] MEDS: Ferrous Gluconate 324 MG TAB PO SCH (09:00)
[2017-12-22] MEDS: Digoxin 0.125 MG TAB PO SCH (09:01)
[2017-12-22] MEDS: Flecainide 50 MG TAB PO SCH (09:03)
[2017-12-22 11:45] VITALS: BP 132/67; TEMP 99.2
== END 2017-12-22 12:00 | DRG 470 ==
LOC: SURG A 12-19 09:52
PROVIDERS: ADMIT Orthopaedic Surgery; ATTEND Orthopaedic Surgery
PROC: 0SR904Z Replacement of Right Hip Joint with Ceramic on Polyethylene Synthetic Substitute, Open Approach (ICD-10-PCS; principal; 2017-12-19)
DX: M16.11 Unilateral primary osteoarthritis, right hip (principal); N17.9 Acute kidney failure, unspecified; I10 Essential (primary) hypertension; E78.5 Hyperlipidemia, unspecified; I48.2 Chronic atrial fibrillation; Z87.11 Personal history of peptic ulcer disease; Z85.46 Personal history of malignant neoplasm of prostate; Z88.8 Allergy status to other drugs, medicaments and biological substances; Z90.49 Acquired absence of other specified parts of digestive tract; Z88.2 Allergy status to sulfonamides
CPT/HCPCS: 36415; 71046; 80048; 85027; 85610; 85730; 86850; 86900; 86901; G8978-GP-CM; G8979-GP-CK; G8987-GO-CM; G8988-GO-CJ; J2001; J2405; J2704; J3010; J3370; J3490; J7050

== ENCOUNTER 2018-07-03 17:43 | Emergency (ER) | payer MEDICARE, BC ==
[2018-07-03 18:22] LABS: #Basophils 0.1 thou/uL (0.0-0.2); #Eosinphils 0.3 thou/uL (0.0-0.7); #Lymphocytes 1.6 thou/uL (1.20-3.40); #Monocytes 0.4 thou/uL (0.11-0.59); #Neutrophils 3.7 thou/uL (1.40-6.50); %Eosinophils 4.3 % (0.0-10.0); %Monocytes 7.4 % (0.0-10.0); %Neutrophils 61.3 % (42.0-75.0); Hemoglobin 14.5 g/dL (14.0-18.0); Mean Corpuscular HGB CONC 33.3 g/dL (32.0-36.0); Mean Corpuscular Hemoglobin 36.2 pg (27.0-31.0); Mean Platelet Volume 8.8 fL (7.4-10.4); Platelet Count 151 thou/uL (130-400); RBC Distribution Width 12.4 % (11.5-14.5); Red Blood Cell (RBC) Count 4.01 mill/uL (4.70-6.10)
--- NOTE | 2018-07-03 18:35 | RAD ---
PORTABLE CHEST: 07/03/18 HISTORY: Weakness, decreased appetite. COMPARISON: 02/25/11 study. Heart size is within normal limits. There are atherosclerotic changes of the aorta. Chronic appearing lung changes are seen without any acute process. IMPRESSION: Chronic appearing lung change. POS: [facility]
[2018-07-03 18:43] LABS: MDiff Complete? YES; Macrocytosis SLIGHT = 6-15 cells (100X) (0-5/hpf); Platelet Morphology Comment Appears Adequate; Polychromasia SLIGHT = 2-3 cells (100X) (0-2/hpf)
[2018-07-03 19:03] LABS: ALT (SGPT) 30 U/L (8-55); AST (SGOT) 26 U/L (5-34); Alkaline Phosphatase 92 U/L (40-150); Anion Gap 16 mmol/L (10-20); BUN (Urea Nitrogen) 30 mg/dL (8.4-25.7); Bilirubin, Total 1.1 mg/dL (0.2-1.2); CK (CPK) 94 U/L (30-200); Calc. Creatinine Clearance 0 mL/min (70-130); Calcium 9.4 mg/dL (7.8-10.44); Carbon Dioxide 22 mmol/L (23-31); Chloride 108 mmol/L (98-107); Estimated GFR-MDRD 44; Globulin 3.3 g/dL (2.4-3.5); Glucose 113 mg/dL (83-110); Protein, Total 7.3 g/dL (5.8-8.1); Sodium 141 mmol/L (136-145)
[2018-07-03] MEDS ORDERED: Metoprolol Tartrate 25 MG TAB ONE (19:25)
[2018-07-03] MEDS ORDERED: Flecainide 50 MG TAB PO SCH (19:45)
--- NOTE | 2018-07-03 19:58 | CT ---
CT OF BRAIN PERFORMED WITHOUT CONTRAST ENHANCEMENT: 07/03/18 HISTORY: Gradual onset of weakness starting three days ago. COMPARISON: 11/14/17 exam. Some generalized ventricular and sulcal prominence. There is no signs of intracerebral hemorrhage or extra-axial fluid collections. Mastoid air cells and visualized sinuses are clear. IMPRESSION: No acute intracranial abnormalities. POS: [facility]
[2018-07-03 22:04] LABS: Bilirubin Small (Negative); Blood, Urine Negative (Negative); Clarity CLEAR (Clear); Glucose, Urine (Dipstick) Negative (Negative); Leukocyte Negative (Negative); Nitrite Negative (Negative); Protein, Urine (Dipstick) 100 mg/dL (Neg-Trace); Specific Gravity, Urine 1.023 (1.002-1.036); pH, Urine 5.5 (5.0-9.0)
[2018-07-03 22:06] LABS: Bacteria/HPF None Seen HPF (None Seen); Squamous Epithelial 0-3 HPF (0-3); WBC/HPF 0-3 HPF (0-3)
[2018-07-03 22:07] LABS: Pathc Cast-AUWi Flag 5.52 (0-2.49)
[2018-07-03 22:17] LABS: Crystals/HPF RARE CA OXALATE HPF (Negative)
--- NOTE | 2018-07-04 16:15 | RAD ---
TWO VIEWS CHEST: HISTORY: Atrial fibrillation. Dyspnea. COMPARISON: 12/18/2017 FINDINGS: Two views of the chest show a normal sized cardiomediastinal silhouette with atherosclerotic calcific ations in the aorta. Increased interstitial markings are present. There is no evidence of consolida tion, mass, or pleural effusion. Degenerative changes are seen in the spine. IMPRESSION: No evidence of acute cardiopulmonary disease. POS: [facility]
== END 2018-07-03 23:00 | disposition home or self-care (01) ==
LOC: ERS 17:43
DX: E86.0 Dehydration (principal); I48.91 Unspecified atrial fibrillation; E03.9 Hypothyroidism, unspecified; I10 Essential (primary) hypertension; Z79.899 Other long term (current) drug therapy
CPT/HCPCS: 36415; 70450; 71045; 80053; 81003; 81015; 82550; 84484; 85025; 93005

== ENCOUNTER 2018-07-04 14:59 | Inpatient (IN) | payer MEDICARE, BC ==
[2018-07-04 16:04] LABS: #Eosinphils 0.2 thou/uL (0.0-0.7); #Lymphocytes 1.6 thou/uL (1.20-3.40); #Monocytes 0.7 thou/uL (0.11-0.59); #Neutrophils 4.4 thou/uL (1.40-6.50); %Basophils 0.5 % (0.0-1.0); %Eosinophils 2.7 % (0.0-10.0); %Lymphocytes 22.6 % (21.0-51.0); %Monocytes 9.6 % (0.0-10.0); %Neutrophils 64.6 % (42.0-75.0); Hemoglobin 13.9 g/dL (14.0-18.0); Mean Corpuscular HGB CONC 33.6 g/dL (32.0-36.0); Mean Platelet Volume 8.5 fL (7.4-10.4); Platelet Count 161 thou/uL (130-400); RBC Distribution Width 12.3 % (11.5-14.5); Red Blood Cell (RBC) Count 3.97 mill/uL (4.70-6.10); White Blood Cell (WBC) Count 6.9 thou/uL (4.8-10.8)
[2018-07-04 16:27] LABS: ALT (SGPT) 35 U/L (8-55); AST (SGOT) 33 U/L (5-34); Alkaline Phosphatase 97 U/L (40-150); Anion Gap 13 mmol/L (10-20); BUN (Urea Nitrogen) 30 mg/dL (8.4-25.7); Bilirubin, Total 0.9 mg/dL (0.2-1.2); Calc. Creatinine Clearance 0 mL/min (70-130); Carbon Dioxide 22 mmol/L (23-31); Chloride 101 mmol/L (98-107); Estimated GFR-MDRD 45; Globulin 3.3 g/dL (2.4-3.5); Glucose 100 mg/dL (83-110); Potassium 4.7 mmol/L (3.5-5.1); Protein, Total 7.3 g/dL (5.8-8.1); Sodium 131 mmol/L (136-145)
[2018-07-04] MEDS ORDERED: Aspirin Chewable 81 MG TAB ONE ×2 (17:08)
[2018-07-04] MEDS ORDERED: Furosemide 20 MG/2 ML VIAL ONE (19:13)
[2018-07-04 19:21] LABS: Troponin I Less than 0.010 ng/mL (< 0.028)
[2018-07-04] MEDS ORDERED: Furosemide 40 MG/4 ML VIAL SLOW IVP SCH (20:43)
[2018-07-04] MEDS ORDERED: Acetaminophen 325 MG TAB PO PRN (20:43)
[2018-07-04] MEDS ORDERED: Senokot S 8.6-50 MG TAB PO PRN (20:43)
[2018-07-04] MEDS ORDERED: Guaifenesin DM 100-10/5 ML UDCUP PO PRN (20:43)
[2018-07-04] MEDS ORDERED: Acetaminophen 650 MG Suppository PR PRN (20:43)
[2018-07-04] MEDS ORDERED: Ondansetron ODT 4 MG TAB PO PRN (20:43)
[2018-07-04] MEDS ORDERED: Ondansetron PF 4 MG/2 ML Vial IVP PRN (20:43)
[2018-07-04] MEDS ORDERED: Sodium Chloride 0.9% 10 ML ONE (21:45)
[2018-07-04] MEDS: Metoprolol Tartrate 50 MG TAB PO SCH (22:09)
[2018-07-04] MEDS: Flecainide 50 MG TAB PO SCH (22:09)
[2018-07-04] MEDS: Famotidine 20 MG TAB PO SCH (22:09)
[2018-07-04] MEDS: Apixaban 5 MG TAB PO SCH (22:09)
[2018-07-04 22:25] LABS: Troponin I Less than 0.010 ng/mL (< 0.028)
--- NOTE | 2018-07-05 00:18 | HP ---
PRIMARY CARE PHYSICIAN: Lucille Benavides MD PRIMARY FINANCIAL ACCOUNTING ANALYST: Marilyn Echols MD CHIEF COMPLAINT: Shortness of breath and generalized weakness. HISTORY OF PRESENT ILLNESS: This is an 88-year-old white male with a known history of atrial fibrillation and hypertension, followed by Dr. Echols in the outpatient. Apparently had an echocardiogram done in the last several weeks in Dr. Echols' clinic. He has never been diagnosed with congestive heart failure, was recently started on Eliquis for stroke prevention. The patient reports that over the last 2 to 3 weeks he has been having increased fatigue and over the last 2 to 3 days, he has had increasing shortness of breath, the occasional wake-up short of breath and all the night. He has had some mild lower extremity edema, on and off as well, and dyspnea on exertion. He went to the emergency room yesterday complaining of fatigue and his mouth feeling dry. Lab tests showed elevated BUN and creatinine, so he was given a liter of fluid and discharged home. He returned today with worsening symptoms. BUN and creatinine were still elevated, so he was given 500 mL of fluid in the ER here. However, his brain natriuretic peptide then came back very elevated and so the patient is actually being admitted for new onset congestive heart failure. PAST MEDICAL HISTORY: 1. Chronic atrial fibrillation. 2. Hypertension that had improved and he was off antihypertensives at one point, but some of them had to be restarted. 3. Hypothyroidism. 4. Previous prostate cancer, treated by Dr. Louis with radiation. PAST SURGICAL HISTORY: 1. Appendectomy. 2. Prostate biopsy. 3. [place] seed implants. 4. Bilateral cataract surgeries. 5. Right hip replacement in December of last year. FAMILY HISTORY: Hypertension. SOCIAL HISTORY: The patient has never regularly smoked. No alcohol or illicit drugs. He is a and lives with his daughter. ALLERGIES: 1. LISINOPRIL. 2. SULFA ANTIBIOTICS. MEDICATIONS: 1. Metoprolol tartrate 25 mg twice a day. 2. Levothyroxine 50 mcg daily. 3. Flecainide 50 mg twice a day. 4. Eliquis 5 mg twice a day. REVIEW OF SYSTEMS: CONSTITUTIONAL: No fevers, no chills. No weight changes. EYES: No double vision or blurred vision. ENT: No congestion, drainage, or sore throat. CARDIOVASCULAR: No chest pain. No palpitations or racing heart. PULMONARY: See HPI. Minimal cough, nonproductive. GASTROINTESTINAL: No abdominal pain. No nausea, vomiting. No diarrhea or constipation. GENITOURINARY: No dysuria or hematuria. Has had a little decreased urine output recently. MUSCULOSKELETAL: No muscle aches or joint pains. SKIN: No rashes or other lesions. NEUROLOGIC: No numbness, tingling, or focal weakness. PHYSICAL EXAMINATION: VITAL SIGNS: Blood pressure 153/113, pulse 97, respirations 22, temperature 97.6, O2 saturation 95% on room air. GENERAL: This is a well-developed, well-nourished white male, in no acute distress, on oxygen. He did start having some labored breathing with any attempt to move around in the bed though. HEENT: Pupils equal, round, and reactive to light. Oropharynx is clear without lesions, erythema, or exudate. NECK: Supple. No lymphadenopathy. No thyroid nodules or enlargement. No appreciable JVD. HEART: Irregularly irregular rhythm, controlled rate. No murmurs, rubs, or gallops. LUNGS: The patient has some mild crackles in bilateral bases, otherwise decent air movement throughout. ABDOMEN: Soft, nontender to palpation. Normoactive bowel sounds. No hepatosplenomegaly or other masses. EXTREMITIES: The patient has 1+ edema to bilateral shins. Otherwise, no clubbing or cyanosis. SKIN: No rashes or other lesions noted. NEUROLOGIC: Intact strength and sensation in all extremities. No facial droop. PSYCHIATRIC: Alert and oriented x3. Normal mood and affect. LABORATORY DATA: CBC with a normal white blood cell count, hemoglobin 13.9, hematocrit 41.3, MCV is 104. Complete metabolic panel notable for a sodium of 131, down from 141 yesterday, carbon dioxide 22, BUN of 30, creatinine of 1.49, which is similar to yesterday before fluids given. Brain natriuretic peptide 1343. Cardiac marker sets negative. TSH normal. Urinalysis with trace ketones and 100 protein, no bacteria or inflammatory cells. IMAGING: Chest x-ray; I did review the chest x-ray in the emergency room along with the radiologist's report, it was called as a clear chest x-ray by the radiologist. There might be some increased interstitial markings and increased vascular markings as well, but no obvious infiltrates. EKG done in the emergency room shows atrial fibrillation with controlled ventricular response of 87 beats per minute with some nonspecific conduction delay and a right axis deviation. ASSESSMENT: 1. New onset congestive heart failure, most likely diastolic given the patient's atrial fibrillation history and lack of previous congestive heart failure on previous echocardiograms. The patient did have a recent echocardiogram, so we will hold off on doing a new one now. We will go ahead and consult Cardiology, I believe Dr. Johns is on-call for Dr. Echols tomorrow. We will give the patient Lasix 40 mg IV twice a day and monitor his urine output. We will also put him on a low-salt , fluid-restricted diet. 2. Acute renal failure. The patient's creatinine and BUN were previously normal. This had not improved with fluids, most likely is actually cardiogenic in origin. I am hoping that his numbers will actually improve with the diuresis. If they worsen, then we will need to get Nephrology involved. 3. Hypertension, currently uncontrolled. We will resume patient's home medications. I suspect that the blood pressure will improve with his diuresis. We can always consider adding his amlodipine back on which he had been on previously should blood pressure remain elevated. 4. Hypothyroidism. We will resume patient's home medication. 5. Atrial fibrillation with controlled ventricular response. We will continue patient's metoprolol and flecainide as well as his Eliquis for stroke prevention. 6. Gastrointestinal prophylaxis. We will put the patient on Pepcid twice a day. 7. Deep venous thrombosis prophylaxis. The patient is already on Eliquis. 8. Code status. I did discuss this with the patient. He is a full code. Should he be incapacitated, his children be his medical decision makers, specifically his son who was in the room, Chapo Brown and also his daughter, Marianne Brown. Job ID: [id number] [facility]
[2018-07-05 05:18] LABS: #Eosinphils 0.1 thou/uL (0.0-0.7); #Lymphocytes 1.3 thou/uL (1.20-3.40); #Monocytes 0.6 thou/uL (0.11-0.59); #Neutrophils 4.8 thou/uL (1.40-6.50); %Basophils 0.3 % (0.0-1.0); %Eosinophils 1.4 % (0.0-10.0); %Lymphocytes 19.3 % (21.0-51.0); %Monocytes 8.8 % (0.0-10.0); %Neutrophils 70.2 % (42.0-75.0); Hemoglobin 13.9 g/dL (14.0-18.0); Mean Corpuscular HGB CONC 34.6 g/dL (32.0-36.0); Mean Corpuscular Hemoglobin 35.8 pg (27.0-31.0); Mean Platelet Volume 8.9 fL (7.4-10.4); Platelet Count 143 thou/uL (130-400); RBC Distribution Width 12.1 % (11.5-14.5); Red Blood Cell (RBC) Count 3.88 mill/uL (4.70-6.10); White Blood Cell (WBC) Count 6.8 thou/uL (4.8-10.8)
[2018-07-05 05:35] LABS: Anion Gap 17 mmol/L (10-20); BUN (Urea Nitrogen) 29 mg/dL (8.4-25.7); Calc. Creatinine Clearance 51 mL/min (70-130); Calcium 8.8 mg/dL (7.8-10.44); Carbon Dioxide 18 mmol/L (23-31); Chloride 102 mmol/L (98-107); Estimated GFR-MDRD 51; Glucose 103 mg/dL (83-110); Potassium 4.7 mmol/L (3.5-5.1); Sodium 132 mmol/L (136-145)
[2018-07-05] MEDS ORDERED: Sodium Chloride 0.9% 10 ML ONE ×2 (05:41→20:03)
[2018-07-05 06:08] LABS: Folate (Folic Acid) 8.6 ng/mL (7.0-31.4)
[2018-07-05] MEDS: Furosemide 40 MG/4 ML VIAL SLOW IVP SCH ×2 (06:17→14:24)
[2018-07-05] MEDS: Levothyroxine Sodium 50 MCG TAB PO SCH (06:17)
--- NOTE | 2018-07-05 09:05 | PDOC.PN ---
- Subjective Encounter Start Date: 07/05/18 Encounter Start Time: 11:30 Subjective: Patient unchanged. Starting to urinate a lot. Still with some -: PATEL and orthopnea. - Objective Resuscitation Status - Order Detail: 07/04/18 19:05 Resuscitation Status Routine Resuscitation Status: FULL: Full Resuscitation Discussed with: Mayi ADAMSON Reviewed: Yes Vital Signs & Weight: Vital Signs (12 hours) Temp Pulse Resp BP BP Pulse Ox 07/05/18 07:58 97.3 F L 90 20 149/85 H 95 07/05/18 03:01 97.4 F L 83 16 139/90 92 L 07/05/18 00:01 97.3 F L 93 21 H 145/94 H 97 07/04/18 22:08 97.4 F L 97 22 H 138/98 H 95 Weight Weight 204 lb 11.2 oz I&O: 07/04/18 07/05/18 07/06/18 06:59 06:59 06:59 Intake Total 364 Output Total 1550 Balance -1186 Result Diagrams: 07/05/18 05:00 07/05/18 05:00 Phys Exam - Physical Examination Constitutional: NAD HEENT: moist MMs Respiratory: no wheezing, no rhonchi mild rales in bases Cardiovascular: no significant murmur, irregular Gastrointestinal: soft, positive bowel sounds Musculoskeletal: no edema Neurological: non-focal, moves all 4 limbs Psychiatric: normal affect, A&O x 3 Dx/Plan (1) Acute CHF (congestive heart failure) Code(s): I50.9 - HEART FAILURE, UNSPECIFIED Status: Acute Qualifiers: Heart failure type: unspecified Qualified Code(s): I50.9 - Heart failure, unspecified Comment: ECHO done in clinic, cardiology consulted, diuresing well (2) Acute renal failure (ARF) Status: Acute Comment: likely due to CHF, tolerating diuresis thus far (3) Chronic atrial fibrillation Code(s): I48.2 - CHRONIC ATRIAL FIBRILLATION Status: Chronic Comment: continue Eliquis and Metoprolol (4) HTN (hypertension) Code(s): I10 - ESSENTIAL (PRIMARY) HYPERTENSION Status: Chronic Qualifiers: Hypertension type: essential hypertension Qualified Code(s): I10 - Essential (primary) hypertension Comment: improved with diuresis (5) Hypothyroidism Code(s): E03.9 - HYPOTHYROIDISM, UNSPECIFIED Status: Chronic Comment: TSH up some, but not sure how recently [place] Thyroid was increased, will continue home dose for now. Can be further titrated up as outpatient. - Plan cont current plan of care, PT/OT * . - Discharge Day Encounter end time: 11:40
[2018-07-05] MEDS: Metoprolol Tartrate 50 MG TAB PO SCH ×2 (09:18→21:25)
[2018-07-05] MEDS: Flecainide 50 MG TAB PO SCH (09:18)
[2018-07-05] MEDS: Apixaban 5 MG TAB PO SCH ×2 (09:18→21:25)
[2018-07-05] MEDS: Famotidine 20 MG TAB PO SCH (21:25)
--- NOTE | 2018-07-06 01:05 | CON ---
DATE OF CONSULTATION: 07/05/2018 INDICATION FOR CONSULTATION: This is an 88-year-old gentleman with atrial fibrillation and congestive heart failure. HISTORY OF PRESENT ILLNESS: This very pleasant 88-year-old gentleman has been followed for many years now. He was actually seen in the office back in March for followup after he had a hip fracture. He noticed at that time he lost some weight about 20 pounds. He has had a stress test prior to undergoing hip surgery back in November, which showed ejection fraction about 51%. He then had also had an echocardiogram in August 2017, which showed ejection fraction about 50% with moderate mitral valve regurgitation. He then presented again to the office in March and was found to have an ejection fraction about 30% to 35%. He then presented today to the hospital complaining of increasing shortness of breath and dyspnea on exertion and some lower extremity edema. Repeat echocardiogram today shows ejection fraction of about 15% to 20%. He was noted to have atrial fibrillation recently about a month ago, and when he was seen in the office, he was given Eliquis, and he had been on flecainide also in the past. Given the fact that his ejection fraction is so low, I have now stopped his flecainide. He denies any chest pain. Some time back, he had lost about 20 pounds after his hip surgery, but then has regained most of that weight back. He denies any chest discomfort. He has had no history of coronary artery disease in the past. He has had no syncope or palpitations. He has no lower extremity claudication or any indication that he has had any significant vascular disease in the past. He does have atrial fibrillation, which has been a new finding in the last six months, but has been on oral anticoagulations as well as the flecainide. He also has history of hypertension. He has had some history of previous prostate cancer, treated by radiation, otherwise has had no significant cardiac problems in the past. He had been on Synthroid in the past, he has been on Synthroid 50 mcg p.o. daily. He also was given aspirin 81 mg a day as well as Eliquis 5 mg b.i.d. when he was seen in the office. He also had been treated with Norvasc recently 5 mg once a day. PAST MEDICAL HISTORY: Significant for atrial fibrillation, which has been new onset for the last couple of months. He has a history of hypertension and hypothyroidism. He has had a history of prostate cancer, which has been treated by radiation therapy. PAST SURGICAL HISTORY: He has had prostate biopsy with radium seed implants. He has had bilateral cataract surgery, appendectomy, and right hip replacement. FAMILY HISTORY: Positive for hypertension. SOCIAL HISTORY: He has no alcohol or tobacco abuse. He lives with his daughter. He is a . ALLERGIES: ALLERGIC TO LISINOPRIL AND SULFA. MEDICATIONS: Prior to admission included, 1. Eliquis. 2. Flecainide. 3. Metoprolol 25 mg b.i.d. 4. Levothyroxine. REVIEW OF SYSTEMS: He had no new HEENT complaints. No visual changes. He did complain of shortness of breath. He had no significant palpitations or chest pain. He had no GI or complaints. He did have lower extremity edema, but not significant. He has had no other neurological complaints. PHYSICAL EXAMINATION: GENERAL: An elderly gentleman. VITAL SIGNS: Blood pressure is 149/85, heart rate in the 90s and shows atrial fibrillation, respiratory rate is about 20. He is afebrile. O2 saturation is 95%. HEENT: Head, normocephalic and atraumatic. Carotid pulses are present. I do not hear any significant bruits. CHEST: His chest actually has a few basilar rales, otherwise it was clear. No rhonchi or wheezing were noted. CARDIOVASCULAR: Irregularly irregular rhythm. No significant S1 or S2 were noted. I did not hear an S3 nor an S4. He did have a systolic murmur at the apex, but no other gross murmurs were noted. ABDOMEN: Soft and nontender. Positive bowel sounds are present. EXTREMITIES: No clubbing or cyanosis. He had mild ankle edema. NEUROLOGIC: The patient appears to be fully intact for someone of his age. SKIN: Warm and dry. LABORATORY DATA: No evidence of cardiac enzyme elevation. These are normal. His creatinine was 1.33 with a BUN of 29, potassium 4.7, sodium 132, blood sugar 103. WBC 6.8 and hemoglobin 13.9. IMPRESSION: 1. This is an elderly gentleman with atrial fibrillation, which may be chronic at this time, but certainly the rate is somewhat rapid with new-onset congestive heart failure. The rate is under better control at this time, but earlier the rate was in between 80s and 90s, not significantly elevated, but he has a new continuing worsening of left ventricular systolic function within the last 6 months, has deteriorated significantly. He may have underlying coronary artery disease as an etiology for the severe decrease in left ventricular systolic function, otherwise did not have an etiology for this. He had no problems during his surgery for his hip replacement and there is no indication he has suffered a myocardial infarction, but he does have decreased R-wave progression in V1 through V4, which certainly could be indicative of possible old anterior myocardial infarction as well as atrial fibrillation. At this time, he will undergo diuresis. I would advise him to undergo cardiac catheterization prior to discharge to evaluate for coronary artery evaluation. 2. History of hypertension. This is under relatively good control at this time. We will continue to manage that by medications. 3. Dyslipidemia. He is not on any medicines for cholesterol at this time. Given his age, I do not have any recent cholesterol levels, which certainly is not imperative that we start medications at this time. 4. History of prostate cancer. I have no indication that he has had any recurrence. 5. Hypothyroidism. I will leave this up to the discretion of primary care physicians whether or not to resume his thyroid medications. He is actually on thyroid medications in the hospital here also. This is also in his present list of medications. He is also on Lasix for diuresis. I will stop his flecainide at this time since he remains in atrial fibrillation, and given his ejection fraction is severely compromised, would rather not be on this medication at this time. I will be more than happy to continue to follow the patient with you, but as noted, he will need some diuresis and then he will need to undergo cardiac catheterization to rule out evidence of severe underlying coronary artery disease as the etiology of his severe decrease in left ventricular systolic function. Job ID: [id number]
[2018-07-06] MEDS: Levothyroxine Sodium 50 MCG TAB PO SCH (06:11)
[2018-07-06] MEDS: Furosemide 40 MG/4 ML VIAL SLOW IVP SCH ×2 (06:11→18:27)
[2018-07-06] MEDS ORDERED: Communication Order-Pharmacy FS SCH (09:30)
[2018-07-06] MEDS ORDERED: Metoclopramide HCl 10 MG/2 ML VIAL IVP SCH (09:30)
[2018-07-06] MEDS ORDERED: Iopamidol 370 76% 100 ML VIAL ONE (10:17)
[2018-07-06] MEDS: Apixaban 5 MG TAB PO SCH (10:18)
[2018-07-06] MEDS: Metoprolol Tartrate 50 MG TAB PO SCH (10:19)
[2018-07-06] MEDS ORDERED: hydrALAZINE 20 MG/ML VIAL SLOW IVP PRN (10:20)
[2018-07-06] MEDS ORDERED: Loratadine 10 MG TAB PO PRN (10:20)
[2018-07-06] MEDS ORDERED: Diabetic Tussin 200 MG/10 ML UDCUP PO PRN (10:20)
[2018-07-06] MEDS ORDERED: Eucerin (Mineral Oil/Petrolatum,White) 30 gm Jar TOP PRN (10:20)
[2018-07-06] MEDS ORDERED: Sodium Chloride 0.65% Nasal 44 ML BOT EA NARE PRN (10:20)
[2018-07-06] MEDS ORDERED: Zolpidem Tartrate 5 MG TAB PO PRN (10:20)
[2018-07-06] MEDS ORDERED: Artificial Tears 18 DROP/0.9 ML EA EYE PRN (10:20)
[2018-07-06] MEDS ORDERED: Cepastat Lozenges 1 LOZ PO PRN (10:20)
[2018-07-06] MEDS ORDERED: Loperamide HCl 2 MG CAP PO PRN (10:20)
--- NOTE | 2018-07-06 12:17 | PDOC.PN ---
- Subjective Encounter Start Date: 07/06/18 Encounter Start Time: 08:00 -: old records requested/rev Patient seen and examined. No new complaints. No overnight events pt is very weak, edema and orthopnea improved - Objective Resuscitation Status - Order Detail: 07/04/18 19:05 Resuscitation Status Routine Resuscitation Status: FULL: Full Resuscitation Discussed with: Patient SNOW Reviewed: Yes Vital Signs & Weight: Vital Signs (12 hours) Temp Pulse Resp BP Pulse Ox 07/06/18 08:52 96.0 F L 99 20 151/89 H 94 L 07/06/18 03:10 97.8 F 100 18 146/86 H 95 Weight Admit Weight 204 lb 11.2 oz Weight 204 lb 11.2 oz I&O: 07/05/18 07/06/18 07/07/18 06:59 06:59 06:59 Intake Total 364 1224 Output Total 1550 1925 50 Balance -1186 -701 -50 Result Diagrams: 07/05/18 05:00 07/05/18 05:00 Radiology Reviewed by me: Yes (echo noted) EKG Reviewed by me: Yes (afib) Phys Exam - Physical Examination Constitutional: NAD HEENT: PERRLA, moist MMs, sclera anicteric Neck: no JVD, supple Respiratory: no wheezing, no rales, no rhonchi Cardiovascular: irregular SM+ Gastrointestinal: soft, non-tender, no distention, positive bowel sounds Musculoskeletal: no edema, pulses present Neurological: non-focal, normal sensation, moves all 4 limbs Lymphatic: no nodes Psychiatric: normal affect, A&O x 3 Skin: no rash, normal turgor Dx/Plan (1) Acute CHF (congestive heart failure) Code(s): I50.9 - HEART FAILURE, UNSPECIFIED Status: Acute Qualifiers: Heart failure type: systolic Qualified Code(s): I50.21 - Acute systolic ( congestive) heart failure Comment: ACC stage-C (2) Acute renal failure (ARF) Status: Acute Comment: likely due to CHF, tolerating diuresis (3) Chronic atrial fibrillation Code(s): I48.2 - CHRONIC ATRIAL FIBRILLATION Status: Chronic Comment: (4) H/O prostate cancer Code(s): Z85.46 - PERSONAL HISTORY OF MALIGNANT NEOPLASM OF PROSTATE Status: Chronic (5) HTN (hypertension) Code(s): I10 - ESSENTIAL (PRIMARY) HYPERTENSION Status: Chronic Qualifiers: Hypertension type: essential hypertension Qualified Code(s): I10 - Essential (primary) hypertension Comment: improved with diuresis (6) Hypothyroidism Code(s): E03.9 - HYPOTHYROIDISM, UNSPECIFIED Status: Chronic Comment: (7) Macrocytic anemia Code(s): D53.9 - NUTRITIONAL ANEMIA, UNSPECIFIED Status: Chronic - Plan cont current plan of care, plan discussed w/ family, PT/OT * medication reviewed as below * symptomatic treatment * today cardiac cath for ichemic work up * discussed with family * will adjust meds. * continue diuresis Review of Systems - Review of Systems Constitutional: weakness ENT: negative: Ear Pain, Ear Discharge, Nose Pain, Nose Discharge, Nose Congestion, Mouth Pain, Mouth Swelling, Throat Pain, Throat Swelling, Other Respiratory: negative: Cough, Dry, Shortness of Breath, Hemoptysis, SOB with Excertion, Pleuritic Pain, Sputum, Wheezing Cardiovascular: negative: chest pain, palpitations, orthopnea, paroxysmal nocturnal dyspnea, edema, light headedness, other Gastrointestinal: negative: Nausea, Vomiting, Abdominal Pain, Diarrhea, Constipation, Melena, Hematochezia, Other Genitourinary: negative: Dysuria, Frequency, Incontinence, Hematuria, Retention , Other Musculoskeletal: negative: Neck Pain, Shoulder Pain, Arm Pain, Back Pain, Hand Pain, Leg Pain, Foot Pain, Other Skin: negative: Rash, Lesions, Roni, Bruising, Other - Medications/Allergies Allergies/Adverse Reactions: Allergies Allergy/AdvReac Type Severity Reaction Status Date / Time avocado Allergy Verified 07/05/18 14:35 lisinopril Allergy Verified 12/18/17 14:24 Sulfa (Sulfonamide Allergy Verified 12/18/17 14:24 Antibiotics) Medications: Current Medications Acetaminophen (Tylenol) 650 mg PO Q4H PRN PRN Reason: Headache/Fever/Mild Pain (1-3) Acetaminophen (Tylenol) 650 mg MD Q4H PRN PRN Reason: Headache/Fever/Mild Pain (1-3) Apixaban (Eliquis) 5 mg PO BID [facility] Last Admin: 07/06/18 10:18 Dose: Not Given Artificial Tears (Tears Naturale) 2 drop EA EYE PRN PRN PRN Reason: Dry Eyes Famotidine (Pepcid) 20 mg PO 2100 [facility] Last Admin: 07/05/18 21:25 Dose: 20 mg Furosemide (Lasix) 40 mg SLOW IVP 0600,1400 [facility] Last Admin: 07/06/18 06:11 Dose: 40 mg Guaifenesin (Robitussin Sf) 200 mg PO Q4H PRN PRN Reason: Cough Guaifenesin/Dextromethorphan (Robitussin Dm) 15 ml PO Q4H PRN PRN Reason: Cough Hydralazine HCl (Apresoline) 10 mg SLOW IVP Q4H PRN PRN Reason: SBP > 180 and HR < 70 Levothyroxine Sodium (Synthroid) 50 mcg PO 0600 [facility] Last Admin: 07/06/18 06:11 Dose: 50 mcg Loperamide HCl (Imodium) 2 mg PO PRN PRN PRN Reason: Diarrhea/Loose Stools Loratadine (Claritin) 10 mg PO DAILYPRN PRN PRN Reason: Sinus Symptoms Metoclopramide HCl (Reglan) 10 mg IVP ONE [facility] Stop: 07/06/18 14:00 Last Admin: 07/06/18 10:18 Dose: 10 mg Metoprolol Tartrate (Lopressor) 50 mg PO BID [facility] Last Admin: 07/06/18 10:19 Dose: 50 mg Mineral Oil/White Petrolatum (Eucerin Cream) 0 gm TOP BIDPRN PRN PRN Reason: Dry Skin Miscellaneous Information (Communication Order-Pharmacy) 0 each FS ONE [facility] Stop: 07/06/18 21:00 Ondansetron HCl (Zofran Odt) 4 mg PO Q6H PRN PRN Reason: Nausea/Vomiting Ondansetron HCl (Zofran) 4 mg IVP Q6H PRN PRN Reason: Nausea/Vomiting Senna/Docusate Sodium (Senokot S) 2 tab PO BID PRN PRN Reason: Constipation Sodium Chloride (Flush - Normal Saline) 10 ml IVF Q12HR [facility] Sodium Chloride (Flush - Normal Saline) 10 ml IVF PRN PRN PRN Reason: Saline Flush Sodium Chloride (Alexander Nasal Accident 0.65%) 0 ml EA NARE QIDPRN PRN PRN Reason: Nasal Congestion Throat Lozenges (Cepastat Lozenges) 1 kimberlee PO Q2H PRN PRN Reason: Sore Throat Zolpidem Tartrate (Ambien) 5 mg PO HSPRN PRN PRN Reason: Insomnia
[2018-07-06] MEDS ORDERED: Verapamil 5 MG/2 ML VIAL ONE (13:04)
[2018-07-06] MEDS ORDERED: Heparin 10,000 UNITS/1 ML VIAL ONE (13:04)
[2018-07-06] MEDS ORDERED: Nitroglycerin 100MG/250ML BOT 250 ML ONE (13:05)
[2018-07-06] MEDS ORDERED: Midazolam HCl 2 mg/2 ml Vial ONE (13:56)
[2018-07-06] MEDS ORDERED: Sodium Chloride 0.9% 200 ML IV PRN (15:20)
[2018-07-06] MEDS ORDERED: Nitroglycerin 0.4 MG TAB (25 Tab Bottle) SL PRN (15:20)
[2018-07-06] MEDS ORDERED: Acetaminophen/Codeine 30-300mg Tablet PO PRN ×2 (15:20)
[2018-07-06] MEDS ORDERED: Carvedilol 6.25 MG TAB PO SCH ×2 (17:00→17:15)
--- NOTE | 2018-07-06 17:12 | PDOC.CTH ---
Cardiology Progress Note - Subjective The pt seen and examined. No overnight events. No cardiac complaints. - Objective Vital Signs Temp Pulse Resp BP BP Pulse Ox 07/06/18 15:20 89 20 166/95 H 166/95 H 96 07/06/18 14:50 96 20 156/108 H 156/108 H 96 07/06/18 13:15 100 07/06/18 12:59 150/105 H 07/06/18 12:00 96.3 F L 100 18 159/110 H 97 07/06/18 08:52 96.0 F L 99 20 151/89 H 94 L Admit Weight 204 lb 11.2 oz Weight 204 lb 11.2 oz 07/05/18 07/06/18 07/07/18 06:59 06:59 06:59 Intake Total 364 1224 Output Total 1550 1925 50 Balance -1186 -701 -50 - Physical Examination General/Neuro: alert & oriented x3 Neck: no JVD present Lungs: CTA Heart: other: (irregular) Abdomen: soft Extremities: other: (No edema) - Telemetry Telemetry Rhythm: AFib 90-100s - Labs Result Diagrams: 07/09/18 05:46 07/09/18 05:46 Troponin/CKMB Troponin I Less than 0.010 ng/mL (< 0.028) 07/04/18 21:48 - Assessment/Plan 1. 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 treat medically. 2. Acute on Chronic systolic HF - stable with Lasix IV BID and BBlocker; not on ANGUS/ARB 2/2 CKD 3. persist Afib - Flecainide was stopped; On Coreg 12.5mg BID; resume Eliquis 5mg from tomorrow AM 4. HTN - increase coreg from6.25mg to 12.5mg BID from tonight 5. Mod MR - cont. to monitor 6. Hypothyroidism - managed by pcp 7. CKD MAR reviewed Pt. seen and eval. by me. i agree with the A/P by the LICENSED SALES ASSISTANT. We have discussed the plan. Chest clear. Irreg/irreg. Review of Systems - Review of Systems Constitutional: reports: no symptoms reported EENTM: reports: no symptoms reported Respiratory: reports: no symptoms reported Cardiac (ROS): reports: no symptoms reported ABD/GI: reports: no symptoms reported : reports: no symptoms reported Musculoskeletal: reports: no symptoms reported Skin: reports: no symptoms reported Neurological: reports: no symptoms reported
[2018-07-06] MEDS: Isosorbide Dinitrate 20 MG TAB PO SCH (21:04)
[2018-07-06] MEDS: Famotidine 20 MG TAB PO SCH (21:05)
[2018-07-07] MEDS: Furosemide 40 MG/4 ML VIAL SLOW IVP SCH ×2 (06:12→17:42)
[2018-07-07] MEDS: Levothyroxine Sodium 50 MCG TAB PO SCH (06:12)
[2018-07-07] MEDS ORDERED: Carvedilol 6.25 MG TAB PO SCH (08:00)
[2018-07-07] MEDS: Apixaban 5 MG TAB PO SCH ×2 (09:32→20:40)
[2018-07-07] MEDS: Isosorbide Dinitrate 20 MG TAB PO SCH ×2 (09:32→20:40)
--- NOTE | 2018-07-07 13:20 | PDOC.PN ---
- Subjective Encounter Start Date: 07/07/18 Encounter Start Time: 08:15 Patient seen and examined. No new complaints. No overnight events - Objective Resuscitation Status - Order Detail: 07/04/18 19:05 Resuscitation Status Routine Resuscitation Status: FULL: Full Resuscitation Discussed with: Patient SNOW Reviewed: Yes Vital Signs & Weight: Vital Signs (12 hours) Temp Pulse Pulse Pulse Resp BP BP 07/07/18 12:35 105 H 103 H 131/79 124/75 07/07/18 08:00 96.9 F L 126 H 20 07/07/18 04:00 97.7 F 99 20 BP Pulse Ox Pulse Ox Pulse Ox 07/07/18 12:35 95 94 L 07/07/18 08:00 131/76 96 07/07/18 04:00 158/105 H 95 Weight Admit Weight 204 lb 11.2 oz Weight 189 lb 9 oz I&O: 07/06/18 07/07/18 07/08/18 06:59 06:59 06:59 Intake Total 1224 300 Output Total 7258 5163 914 [facility] -[phone] Result Diagrams: 07/05/18 05:00 07/05/18 05:00 EKG Reviewed by me: Yes (afib) Phys Exam - Physical Examination Constitutional: NAD HEENT: PERRLA, moist MMs, sclera anicteric Neck: no JVD, supple Respiratory: no wheezing, no rales, no rhonchi Cardiovascular: no significant murmur, no rub, irregular Gastrointestinal: soft, non-tender, no distention, positive bowel sounds Musculoskeletal: no edema, pulses present Neurological: non-focal, normal sensation, moves all 4 limbs Lymphatic: no nodes Psychiatric: normal affect, A&O x 3 Skin: no rash, normal turgor Dx/Plan (1) Acute systolic ACC/AHA stage C congestive heart failure Code(s): I50.21 - ACUTE SYSTOLIC (CONGESTIVE) HEART FAILURE Status: Acute (2) Acute renal failure (ARF) Status: Acute Comment: likely due to CHF, tolerating diuresis (3) Chronic atrial fibrillation Code(s): I48.2 - CHRONIC ATRIAL FIBRILLATION Status: Chronic Comment: (4) H/O prostate cancer Code(s): Z85.46 - PERSONAL HISTORY OF MALIGNANT NEOPLASM OF PROSTATE Status: Chronic (5) HTN (hypertension) Code(s): I10 - ESSENTIAL (PRIMARY) HYPERTENSION Status: Chronic Qualifiers: Hypertension type: essential hypertension Qualified Code(s): I10 - Essential (primary) hypertension Comment: improved with diuresis (6) Hypothyroidism Code(s): E03.9 - HYPOTHYROIDISM, UNSPECIFIED Status: Chronic Comment: (7) Macrocytic anemia Code(s): D53.9 - NUTRITIONAL ANEMIA, UNSPECIFIED Status: Chronic (8) 3-vessel CAD Status: Acute - Plan cont current plan of care * medication reviewed as below * symptomatic treatment * continue diuresis * may need life vest * continue PT * will adjust meds * expecting discharge in 24-48 hour * only medical therapy is option for now. * will optimize medical therapy Review of Systems - Review of Systems ENT: negative: Ear Pain, Ear Discharge, Nose Pain, Nose Discharge, Nose Congestion, Mouth Pain, Mouth Swelling, Throat Pain, Throat Swelling, Other Respiratory: negative: Cough, Dry, Shortness of Breath, Hemoptysis, SOB with Excertion, Pleuritic Pain, Sputum, Wheezing Cardiovascular: negative: chest pain, palpitations, orthopnea, paroxysmal nocturnal dyspnea, edema, light headedness, other Gastrointestinal: negative: Nausea, Vomiting, Abdominal Pain, Diarrhea, Constipation, Melena, Hematochezia, Other Genitourinary: negative: Dysuria, Frequency, Incontinence, Hematuria, Retention , Other Musculoskeletal: negative: Neck Pain, Shoulder Pain, Arm Pain, Back Pain, Hand Pain, Leg Pain, Foot Pain, Other - Medications/Allergies Allergies/Adverse Reactions: Allergies Allergy/AdvReac Type Severity Reaction Status Date / Time avocado Allergy Verified 07/05/18 14:35 lisinopril Allergy Verified 12/18/17 14:24 Sulfa (Sulfonamide Allergy Verified 12/18/17 14:24 Antibiotics) Medications: Current Medications Acetaminophen (Tylenol) 650 mg PO Q4H PRN PRN Reason: Headache/Fever/Mild Pain (1-3) Acetaminophen/Codeine Phosphate (Tylenol #3) 1 tab PO Q4H PRN PRN Reason: Mild Pain (1-3) Acetaminophen/Codeine Phosphate (Tylenol #3) 2 tab PO Q4H PRN PRN Reason: Moderate Pain (4-6) Apixaban (Eliquis) 5 mg PO BID [facility] Last Admin: 07/07/18 09:32 Dose: 5 mg Artificial Tears (Tears Naturale) 2 drop EA EYE PRN PRN PRN Reason: Dry Eyes Carvedilol (Coreg) 12.5 mg PO BID-[facility] Last Admin: 07/07/18 09:32 Dose: 12.5 mg Famotidine (Pepcid) 20 mg PO 2100 [facility] Last Admin: 07/06/18 21:05 Dose: 20 mg Furosemide (Lasix) 40 mg SLOW IVP 0600,1400 [facility] Last Admin: 07/07/18 06:12 Dose: 40 mg Guaifenesin (Robitussin Sf) 200 mg PO Q4H PRN PRN Reason: Cough Guaifenesin/Dextromethorphan (Robitussin Dm) 15 ml PO Q4H PRN PRN Reason: Cough Hydralazine HCl (Apresoline) 10 mg SLOW IVP Q4H PRN PRN Reason: SBP > 180 and HR < 70 Last Admin: 07/06/18 13:15 Dose: 10 mg Sodium Chloride (Normal Saline 0.9%) 200 mls @ 0 mls/hr IV ONE PRN PRN Reason: SBP < 90 Stop: 07/07/18 15:21 Isosorbide Dinitrate (Isordil) 10 mg PO BID [facility] Last Admin: 07/07/18 09:32 Dose: 10 mg Levothyroxine Sodium (Synthroid) 50 mcg PO 0600 [facility] Last Admin: 07/07/18 06:12 Dose: 50 mcg Loperamide HCl (Imodium) 2 mg PO PRN PRN PRN Reason: Diarrhea/Loose Stools Loratadine (Claritin) 10 mg PO DAILYPRN PRN PRN Reason: Sinus Symptoms Mineral Oil/White Petrolatum (Eucerin Cream) 0 gm TOP BIDPRN PRN PRN Reason: Dry Skin Nitroglycerin (Nitrostat) 0.4 mg SL Q5MIN PRN PRN Reason: Chest Pain Ondansetron HCl (Zofran Odt) 4 mg PO Q6H PRN PRN Reason: Nausea/Vomiting Ondansetron HCl (Zofran) 4 mg IVP Q6H PRN PRN Reason: Nausea/Vomiting Senna/Docusate Sodium (Senokot S) 2 tab PO BID PRN PRN Reason: Constipation Sodium Chloride (Flush - Normal Saline) 10 ml IVF Q12HR [facility] Last Admin: 07/06/18 21:05 Dose: 10 ml Sodium Chloride (Flush - Normal Saline) 10 ml IVF PRN PRN PRN Reason: Saline Flush Sodium Chloride ([place] Nasal [place] 0.65%) 0 ml EA NARE QIDPRN PRN PRN Reason: Nasal Congestion Throat Lozenges (Cepastat Lozenges) 1 kimberlee PO Q2H PRN PRN Reason: Sore Throat Zolpidem Tartrate (Ambien) 5 mg PO HSPRN PRN PRN Reason: Insomnia
--- NOTE | 2018-07-07 16:08 | PDOC.CTH ---
Cardiology Progress Note - Subjective The pt seen and examined. No overnight events. No cardiac complaints. - Objective Vital Signs Temp Pulse Pulse Pulse Resp BP BP 07/07/18 12:35 105 H 103 H 131/79 124/75 07/07/18 08:00 96.9 F L 126 H 20 BP Pulse Ox Pulse Ox Pulse Ox 07/07/18 12:35 95 94 L 07/07/18 08:00 131/76 96 Admit Weight 204 lb 11.2 oz Weight 189 lb 9 oz 07/06/18 07/07/18 07/08/18 06:59 06:59 06:59 Intake Total 1224 300 Output Total 0895 1350 915 Balance -248 -2922 -294 - Physical Examination General/Neuro: alert & oriented x3 Neck: no JVD present Lungs: CTA Heart: other: (irregular) Abdomen: soft Extremities: other: (No edema) - Telemetry Telemetry Rhythm: Afib 90-110s - Labs Result Diagrams: 07/05/18 05:00 07/05/18 05:00 Troponin/CKMB Troponin I Less than 0.010 ng/mL (< 0.028) 07/04/18 21:48 - Assessment/Plan 1. 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 Not significant to cause this degree of CMY. 2. Acute on Chronic systolic HF - stable with Lasix IV BID and BBlocker; not on ANGUS/ARB 2/2 CKD 3. persist Afib - Flecainide was stopped; On Eliquis 5mg BID and Coreg 12.5mg BID which increased to 25mg BID from this PM 4. HTN - increase coreg from 12.5mg to 25mg BID from tonight 5. Mod MR - cont. to monitor 6. Hypothyroidism - managed by pcp 7. CKD MAR reviewed * possible DCCV on Monday? Pt. seen and eval. by me. Plan for cardioversion on Monday. Consider loading with amiodarone or Multaq after a wash out of the Flecainide. I agree with the A /P by the DISTANCE EDUCATION FACULTY LIAISON. Review of Systems - Review of Systems Constitutional: reports: weakness EENTM: reports: no symptoms reported Respiratory: reports: no symptoms reported Cardiac (ROS): reports: no symptoms reported ABD/GI: reports: no symptoms reported : reports: no symptoms reported Musculoskeletal: reports: no symptoms reported
[2018-07-07] MEDS ORDERED: Carvedilol 25 MG TAB PO SCH (17:00)
[2018-07-07] MEDS ORDERED: Amiodarone 150 MG, Admixture Fee 1 EACH in Dextrose 5% in Water 100 ML IVPB SCH (19:45)
[2018-07-07] MEDS: Amiodarone 450 MG in Dextrose 5% in Water 250 ML IVPB SCH (20:33)
[2018-07-07] MEDS: Famotidine 20 MG TAB PO SCH (20:41)
[2018-07-08] MEDS: Levothyroxine Sodium 50 MCG TAB PO SCH (05:43)
[2018-07-08] MEDS: Furosemide 40 MG/4 ML VIAL SLOW IVP SCH ×2 (05:45→14:46)
[2018-07-08] MEDS: Carvedilol 25 MG TAB PO SCH ×2 (08:36→16:49)
[2018-07-08] MEDS: Apixaban 5 MG TAB PO SCH ×2 (08:36→22:18)
[2018-07-08] MEDS: Isosorbide Dinitrate 20 MG TAB PO SCH ×2 (08:36→22:19)
[2018-07-08] MEDS: Amiodarone 450 MG in Dextrose 5% in Water 250 ML IVPB SCH ×2 (08:39→23:33)
--- NOTE | 2018-07-08 11:48 | PDOC.PN ---
- Subjective Encounter Start Date: 07/08/18 Encounter Start Time: 07:15 Patient seen and examined. No new complaints. No overnight events - Objective Resuscitation Status - Order Detail: 07/04/18 19:05 Resuscitation Status Routine Resuscitation Status: FULL: Full Resuscitation Discussed with: Patient SNOW Reviewed: Yes Vital Signs & Weight: Vital Signs (12 hours) Temp Pulse Resp BP Pulse Ox 07/08/18 07:59 95 07/08/18 07:56 97.5 F L 101 H 15 134/87 95 07/08/18 04:00 98.4 F 115 H 14 133/95 H 92 L Weight Admit Weight 204 lb 11.2 oz Weight 178 lb 3 oz I&O: 07/07/18 07/08/18 07/09/18 06:59 06:59 06:59 Intake Total 759 Output Total 1350 1840 Balance -1350 -1081 Result Diagrams: 07/05/18 05:00 07/05/18 05:00 EKG Reviewed by me: Yes Phys Exam - Physical Examination Constitutional: NAD HEENT: PERRLA, moist MMs, sclera anicteric Neck: no JVD, supple Respiratory: no wheezing, no rales, no rhonchi Cardiovascular: no significant murmur, irregular Gastrointestinal: soft, non-tender, no distention, positive bowel sounds Musculoskeletal: no edema, pulses present Neurological: non-focal, normal sensation Lymphatic: no nodes Psychiatric: normal affect, A&O x 3 Skin: no rash, normal turgor Dx/Plan (1) Acute systolic ACC/AHA stage C congestive heart failure Code(s): I50.21 - ACUTE SYSTOLIC (CONGESTIVE) HEART FAILURE Status: Acute (2) Acute renal failure (ARF) Status: Acute Comment: likely due to CHF, tolerating diuresis (3) Chronic atrial fibrillation Code(s): I48.2 - CHRONIC ATRIAL FIBRILLATION Status: Chronic Comment: (4) H/O prostate cancer Code(s): Z85.46 - PERSONAL HISTORY OF MALIGNANT NEOPLASM OF PROSTATE Status: Chronic (5) HTN (hypertension) Code(s): I10 - ESSENTIAL (PRIMARY) HYPERTENSION Status: Chronic Qualifiers: Hypertension type: essential hypertension Qualified Code(s): I10 - Essential (primary) hypertension Comment: improved with diuresis (6) Hypothyroidism Code(s): E03.9 - HYPOTHYROIDISM, UNSPECIFIED Status: Chronic Comment: (7) Macrocytic anemia Code(s): D53.9 - NUTRITIONAL ANEMIA, UNSPECIFIED Status: Chronic (8) 3-vessel CAD Status: Acute - Plan cont current plan of care * continue amiodaron as per cardiology * tomorrow plan for DCCV * medication reviewed as below * symptomatic treatment * expecting discharge soon * life vest??. Review of Systems - Review of Systems ENT: negative: Ear Pain, Ear Discharge, Nose Pain, Nose Discharge, Nose Congestion, Mouth Pain, Mouth Swelling, Throat Pain, Throat Swelling, Other Respiratory: negative: Cough, Dry, Shortness of Breath, Hemoptysis, SOB with Excertion, Pleuritic Pain, Sputum, Wheezing Cardiovascular: negative: chest pain, palpitations, orthopnea, paroxysmal nocturnal dyspnea, edema, light headedness, other Gastrointestinal: negative: Nausea, Vomiting, Abdominal Pain, Diarrhea, Constipation, Melena, Hematochezia, Other Genitourinary: negative: Dysuria, Frequency, Incontinence, Hematuria, Retention , Other Musculoskeletal: negative: Neck Pain, Shoulder Pain, Arm Pain, Back Pain, Hand Pain, Leg Pain, Foot Pain, Other - Medications/Allergies Allergies/Adverse Reactions: Allergies Allergy/AdvReac Type Severity Reaction Status Date / Time avocado Allergy Verified 07/05/18 14:35 lisinopril Allergy Verified 12/18/17 14:24 Sulfa (Sulfonamide Allergy Verified 12/18/17 14:24 Antibiotics) Medications: Current Medications Acetaminophen (Tylenol) 650 mg PO Q4H PRN PRN Reason: Headache/Fever/Mild Pain (1-3) Acetaminophen/Codeine Phosphate (Tylenol #3) 1 tab PO Q4H PRN PRN Reason: Mild Pain (1-3) Acetaminophen/Codeine Phosphate (Tylenol #3) 2 tab PO Q4H PRN PRN Reason: Moderate Pain (4-6) Apixaban (Eliquis) 5 mg PO BID [facility] Last Admin: 07/08/18 08:36 Dose: 5 mg Artificial Tears (Tears Naturale) 2 drop EA EYE PRN PRN PRN Reason: Dry Eyes Carvedilol (Coreg) 12.5 mg PO BID-[facility] Last Admin: 07/08/18 08:36 Dose: 12.5 mg Famotidine (Pepcid) 20 mg PO 2100 [facility] Last Admin: 07/07/18 20:41 Dose: 20 mg Furosemide (Lasix) 40 mg SLOW IVP 0600,1400 [facility] Last Admin: 07/08/18 05:45 Dose: 40 mg Guaifenesin (Robitussin Sf) 200 mg PO Q4H PRN PRN Reason: Cough Guaifenesin/Dextromethorphan (Robitussin Dm) 15 ml PO Q4H PRN PRN Reason: Cough Hydralazine HCl (Apresoline) 10 mg SLOW IVP Q4H PRN PRN Reason: SBP > 180 and HR < 70 Last Admin: 07/06/18 13:15 Dose: 10 mg Amiodarone HCl 450 mg/ (Dextrose/Water) 259 mls @ 0 mls/hr IVPB INF [facility]; Protocol Last Admin: 07/08/18 08:39 Dose: 259 mls Isosorbide Dinitrate (Isordil) 10 mg PO BID [facility] Last Admin: 07/08/18 08:36 Dose: 10 mg Levothyroxine Sodium (Synthroid) 50 mcg PO 0600 [facility] Last Admin: 07/08/18 05:43 Dose: 50 mcg Loperamide HCl (Imodium) 2 mg PO PRN PRN PRN Reason: Diarrhea/Loose Stools Loratadine (Claritin) 10 mg PO DAILYPRN PRN PRN Reason: Sinus Symptoms Mineral Oil/White Petrolatum (Eucerin Cream) 0 gm TOP BIDPRN PRN PRN Reason: Dry Skin Nitroglycerin (Nitrostat) 0.4 mg SL Q5MIN PRN PRN Reason: Chest Pain Ondansetron HCl (Zofran Odt) 4 mg PO Q6H PRN PRN Reason: Nausea/Vomiting Ondansetron HCl (Zofran) 4 mg IVP Q6H PRN PRN Reason: Nausea/Vomiting Senna/Docusate Sodium (Senokot S) 2 tab PO BID PRN PRN Reason: Constipation Sodium Chloride (Flush - Normal Saline) 10 ml IVF Q12HR [facility] Last Admin: 07/08/18 08:37 Dose: 10 ml Sodium Chloride (Flush - Normal Saline) 10 ml IVF PRN PRN PRN Reason: Saline Flush Sodium Chloride ([place] Nasal [place] 0.65%) 0 ml EA NARE QIDPRN PRN PRN Reason: Nasal Congestion Throat Lozenges (Cepastat Lozenges) 1 ikmberlee PO Q2H PRN PRN Reason: Sore Throat Zolpidem Tartrate (Ambien) 5 mg PO HSPRN PRN PRN Reason: Insomnia
--- NOTE | 2018-07-08 16:12 | PDOC.CTH ---
Cardiology Progress Note - Subjective The pt seen and examined. No overnight events. No cardiac complaints. - Objective Vital Signs Temp Pulse Pulse Pulse Resp BP BP 07/08/18 12:17 102 H 101 H 122/86 129/76 07/08/18 12:00 98.0 F 119 H 16 07/08/18 07:59 07/08/18 07:56 97.5 F L 101 H 15 BP Pulse Ox Pulse Ox Pulse Ox 07/08/18 12:17 93 L 92 L 07/08/18 12:00 123/79 94 L 07/08/18 07:59 95 07/08/18 07:56 134/87 95 Admit Weight 204 lb 11.2 oz Weight 178 lb 3 oz 07/07/18 07/08/18 07/09/18 06:59 06:59 06:59 Intake Total 759 Output Total 1350 1840 Balance -1350 -1081 - Physical Examination General/Neuro: alert & oriented x3 Neck: no JVD present Lungs: CTA Heart: other: (irregular) Abdomen: soft Extremities: other: (No edema) - Telemetry Telemetry Rhythm: Afib - Labs Result Diagrams: 07/09/18 05:46 07/09/18 05:46 Troponin/CKMB Troponin I Less than 0.010 ng/mL (< 0.028) 07/04/18 21:48 - Assessment/Plan 1. 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 Not significant to cause this degree of CMY. 2. Acute on Chronic systolic HF - stable with Lasix IV BID and BBlocker; not on ANGUS/ARB 2/2 CKD 3. persist Afib - On Amiodarone drip; On Eliquis 5mg BID and Coreg 12.5mg BID 4. HTN - stable 5. Mod MR - cont. to monitor 6. Hypothyroidism - managed by pcp 7. CKD MAR reviewed * possible MELANIE/DCCV on Monday by Dr Echols * Zoll LifeVest was ordered today for possible D/c home with LifeVest Pt. seen and eval. by me. I agree with the A/P by the BUSINESS OFFICE REPRESENTATIVE.Chest clear. irreg/ irreg. No edema. Review of Systems - Review of Systems Constitutional: reports: no symptoms reported EENTM: reports: no symptoms reported Respiratory: reports: no symptoms reported Cardiac (ROS): reports: no symptoms reported ABD/GI: reports: no symptoms reported : reports: no symptoms reported Musculoskeletal: reports: no symptoms reported
[2018-07-08] MEDS: Famotidine 20 MG TAB PO SCH (22:19)
[2018-07-09] MEDS: Furosemide 40 MG/4 ML VIAL SLOW IVP SCH ×2 (05:42→15:33)
[2018-07-09] MEDS: Levothyroxine Sodium 50 MCG TAB PO SCH (05:42)
[2018-07-09 06:42] LABS: Anion Gap 14 mmol/L (10-20); BUN (Urea Nitrogen) 24 mg/dL (8.4-25.7); Calc. Creatinine Clearance 49 mL/min (70-130); Calcium 8.8 mg/dL (7.8-10.44); Carbon Dioxide 28 mmol/L (23-31); Chloride 102 mmol/L (98-107); Estimated GFR-MDRD 57; Glucose 113 mg/dL (83-110); Magnesium 1.8 mg/dL (1.6-2.6); Potassium 3.1 mmol/L (3.5-5.1); Sodium 141 mmol/L (136-145)
[2018-07-09 06:52] LABS: #Eosinphils 0.2 thou/uL (0.0-0.7); #Lymphocytes 1.6 thou/uL (1.20-3.40); #Monocytes 0.6 thou/uL (0.11-0.59); #Neutrophils 4.9 thou/uL (1.40-6.50); %Basophils 0.2 % (0.0-1.0); %Lymphocytes 21.8 % (21.0-51.0); %Monocytes 8.7 % (0.0-10.0); %Neutrophils 67.3 % (42.0-75.0); Hemoglobin 14.1 g/dL (14.0-18.0); Mean Corpuscular HGB CONC 33.7 g/dL (32.0-36.0); Mean Corpuscular Hemoglobin 35.3 pg (27.0-31.0); Mean Platelet Volume 8.4 fL (7.4-10.4); Platelet Count 164 thou/uL (130-400); RBC Distribution Width 13.3 % (11.5-14.5); White Blood Cell (WBC) Count 7.3 thou/uL (4.8-10.8)
[2018-07-09] MEDS ORDERED: Potassium Chloride 20 MEQ TAB PO SCH (07:30)
[2018-07-09] MEDS: Apixaban 5 MG TAB PO SCH ×2 (09:10→21:26)
[2018-07-09] MEDS: Isosorbide Dinitrate 20 MG TAB PO SCH ×2 (09:11→21:26)
[2018-07-09] MEDS: Carvedilol 25 MG TAB PO SCH ×2 (09:12→17:22)
--- NOTE | 2018-07-09 11:56 | PDOC.PN ---
- Subjective Encounter Start Date: 07/09/18 Encounter Start Time: 07:20 Patient seen and examined. No new complaints. No overnight events - Objective Resuscitation Status - Order Detail: 07/04/18 19:05 Resuscitation Status Routine Resuscitation Status: FULL: Full Resuscitation Discussed with: Patient SNOW Reviewed: Yes Vital Signs & Weight: Vital Signs (12 hours) Temp Pulse Resp BP Pulse Ox 07/09/18 07:54 98.0 F 106 H 18 145/97 H 94 L 07/09/18 07:35 94 L 07/09/18 03:22 98.4 F 99 18 94 L 07/09/18 00:00 98.1 F 101 H 15 136/100 H 95 Weight Admit Weight 204 lb 11.2 oz Weight 176 lb 8 oz I&O: 07/08/18 07/09/18 07/10/18 06:59 06:59 06:59 Intake Total 759 1310 Output Total 1840 1375 Balance -1081 -65 Result Diagrams: 07/09/18 05:46 07/09/18 05:46 EKG Reviewed by me: Yes Phys Exam - Physical Examination Constitutional: NAD HEENT: PERRLA, moist MMs, sclera anicteric Neck: no JVD, supple Respiratory: no wheezing, no rales, no rhonchi Cardiovascular: no significant murmur, irregular Gastrointestinal: soft, non-tender, no distention, positive bowel sounds Musculoskeletal: no edema, pulses present Neurological: non-focal, normal sensation Lymphatic: no nodes Psychiatric: normal affect, A&O x 3 Skin: no rash, normal turgor Dx/Plan (1) Acute systolic ACC/AHA stage C congestive heart failure Code(s): I50.21 - ACUTE SYSTOLIC (CONGESTIVE) HEART FAILURE Status: Acute (2) Acute renal failure (ARF) Status: Acute Comment: likely due to CHF, tolerating diuresis (3) Chronic atrial fibrillation Code(s): I48.2 - CHRONIC ATRIAL FIBRILLATION Status: Chronic Comment: (4) H/O prostate cancer Code(s): Z85.46 - PERSONAL HISTORY OF MALIGNANT NEOPLASM OF PROSTATE Status: Chronic (5) HTN (hypertension) Code(s): I10 - ESSENTIAL (PRIMARY) HYPERTENSION Status: Chronic Qualifiers: Hypertension type: essential hypertension Qualified Code(s): I10 - Essential (primary) hypertension Comment: improved with diuresis (6) Hypothyroidism Code(s): E03.9 - HYPOTHYROIDISM, UNSPECIFIED Status: Chronic Comment: (7) Macrocytic anemia Code(s): D53.9 - NUTRITIONAL ANEMIA, UNSPECIFIED Status: Chronic (8) 3-vessel CAD Status: Acute - Plan cont current plan of care * medication reviewed as below * symptomatic treatment * today DCCV * expecting discharge tomorrow. Review of Systems - Review of Systems ENT: negative: Ear Pain, Ear Discharge, Nose Pain, Nose Discharge, Nose Congestion, Mouth Pain, Mouth Swelling, Throat Pain, Throat Swelling, Other Respiratory: negative: Cough, Dry, Shortness of Breath, Hemoptysis, SOB with Excertion, Pleuritic Pain, Sputum, Wheezing Cardiovascular: negative: chest pain, palpitations, orthopnea, paroxysmal nocturnal dyspnea, edema, light headedness, other Gastrointestinal: negative: Nausea, Vomiting, Abdominal Pain, Diarrhea, Constipation, Melena, Hematochezia, Other Genitourinary: negative: Dysuria, Frequency, Incontinence, Hematuria, Retention , Other Musculoskeletal: negative: Neck Pain, Shoulder Pain, Arm Pain, Back Pain, Hand Pain, Leg Pain, Foot Pain, Other Skin: negative: Rash, Lesions, Roni, Bruising, Other - Medications/Allergies Allergies/Adverse Reactions: Allergies Allergy/AdvReac Type Severity Reaction Status Date / Time avocado Allergy Verified 07/05/18 14:35 lisinopril Allergy Verified 12/18/17 14:24 Sulfa (Sulfonamide Allergy Verified 12/18/17 14:24 Antibiotics) Medications: Current Medications Acetaminophen (Tylenol) 650 mg PO Q4H PRN PRN Reason: Headache/Fever/Mild Pain (1-3) Acetaminophen/Codeine Phosphate (Tylenol #3) 1 tab PO Q4H PRN PRN Reason: Mild Pain (1-3) Acetaminophen/Codeine Phosphate (Tylenol #3) 2 tab PO Q4H PRN PRN Reason: Moderate Pain (4-6) Apixaban (Eliquis) 5 mg PO BID [facility] Last Admin: 07/09/18 09:10 Dose: 5 mg Artificial Tears (Tears Naturale) 2 drop EA EYE PRN PRN PRN Reason: Dry Eyes Carvedilol (Coreg) 12.5 mg PO BID-[facility] Last Admin: 07/09/18 09:12 Dose: 12.5 mg Famotidine (Pepcid) 20 mg PO 2100 [facility] Last Admin: 07/08/18 22:19 Dose: 20 mg Furosemide (Lasix) 40 mg SLOW IVP 0600,1400 [facility] Last Admin: 07/09/18 05:42 Dose: 40 mg Guaifenesin (Robitussin Sf) 200 mg PO Q4H PRN PRN Reason: Cough Guaifenesin/Dextromethorphan (Robitussin Dm) 15 ml PO Q4H PRN PRN Reason: Cough Hydralazine HCl (Apresoline) 10 mg SLOW IVP Q4H PRN PRN Reason: SBP > 180 and HR < 70 Last Admin: 07/06/18 13:15 Dose: 10 mg Amiodarone HCl 450 mg/ (Dextrose/Water) 259 mls @ 0 mls/hr IVPB INF [facility]; Protocol Last Admin: 07/08/18 23:33 Dose: 259 mls Isosorbide Dinitrate (Isordil) 10 mg PO BID [facility] Last Admin: 07/09/18 09:11 Dose: 10 mg Levothyroxine Sodium (Synthroid) 50 mcg PO 0600 [facility] Last Admin: 07/09/18 05:42 Dose: 50 mcg Loperamide HCl (Imodium) 2 mg PO PRN PRN PRN Reason: Diarrhea/Loose Stools Loratadine (Claritin) 10 mg PO DAILYPRN PRN PRN Reason: Sinus Symptoms Mineral Oil/White Petrolatum (Eucerin Cream) 0 gm TOP BIDPRN PRN PRN Reason: Dry Skin Nitroglycerin (Nitrostat) 0.4 mg SL Q5MIN PRN PRN Reason: Chest Pain Ondansetron HCl (Zofran Odt) 4 mg PO Q6H PRN PRN Reason: Nausea/Vomiting Ondansetron HCl (Zofran) 4 mg IVP Q6H PRN PRN Reason: Nausea/Vomiting Senna/Docusate Sodium (Senokot S) 2 tab PO BID PRN PRN Reason: Constipation Sodium Chloride (Flush - Normal Saline) 10 ml IVF Q12HR [facility] Last Admin: 07/09/18 09:15 Dose: Not Given Sodium Chloride (Flush - Normal Saline) 10 ml IVF PRN PRN PRN Reason: Saline Flush Sodium Chloride ([place] Nasal [place] 0.65%) 0 ml EA NARE QIDPRN PRN PRN Reason: Nasal Congestion Throat Lozenges (Cepastat Lozenges) 1 kimberlee PO Q2H PRN PRN Reason: Sore Throat Zolpidem Tartrate (Ambien) 5 mg PO HSPRN PRN PRN Reason: Insomnia Last Admin: 07/08/18 22:18 Dose: 5 mg
[2018-07-09] MEDS ORDERED: PROPOFOL 0 ML ONE (13:02)
[2018-07-09] MEDS ORDERED: PROPOFOL 20 ML ONE (13:51)
[2018-07-09 14:47] VITALS: BMI 25.3
[2018-07-09] MEDS ORDERED: PROPOFOL 200 MG/20 ML VIAL ONE (14:53)
[2018-07-09] MEDS ORDERED: Amiodarone 200 MG TAB PO SCH (17:00)
--- NOTE | 2018-07-09 17:34 | PDOC.CTH ---
Cardiology Progress Note - Subjective Pt. seen and eval. No new events overnight. - Objective Vital Signs Temp Pulse Pulse Pulse Resp BP BP 07/09/18 16:34 97.8 F 62 20 07/09/18 15:29 98.1 F 67 20 07/09/18 09:40 110 H 100 157/109 H 137/83 07/09/18 07:54 98.0 F 106 H 18 07/09/18 07:35 BP BP Pulse Ox Pulse Ox Pulse Ox 07/09/18 16:34 124/83 95 07/09/18 15:29 157/91 H 95 07/09/18 09:40 96 92 L 07/09/18 07:54 145/97 H 94 L 07/09/18 07:35 94 L Admit Weight 204 lb 11.2 oz Weight 176 lb 8 oz 07/08/18 07/09/18 07/10/18 06:59 06:59 06:59 Intake Total 759 1310 Output Total 1840 1375 350 Balance -1081 -65 -350 - Physical Examination General/Neuro: alert & oriented x3 Neck: no JVD present Lungs: CTA Heart: other: (irreg/irreg) - Labs Result Diagrams: 07/09/18 05:46 07/09/18 05:46 Troponin/CKMB Troponin I Less than 0.010 ng/mL (< 0.028) 07/04/18 21:48 - Assessment/Plan 1. 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 Not significant to cause this degree of CMY. 2. Acute on Chronic systolic HF - stable with Lasix IV BID and BBlocker; not on ANGUS/ARB 2/2 CKD 3. persist Afib - On Amiodarone drip; On Eliquis 5mg BID and Coreg 12.5mg BID 4. HTN - stable 5. Mod MR - cont. to monitor 6. Hypothyroidism - managed by pcp 7. CKD MAR reviewed * MELANIE/DCCV done this AM. Converted to NSR. Will change to po amiodarone. * Zoll LifeVest was ordered today for possible D/c home with LifeVest
[2018-07-09] MEDS: Amiodarone 200 MG TAB PO SCH (21:26)
[2018-07-09] MEDS: Famotidine 20 MG TAB PO SCH (21:27)
[2018-07-10] MEDS: Furosemide 40 MG/4 ML VIAL SLOW IVP SCH (05:58)
[2018-07-10] MEDS: Levothyroxine Sodium 50 MCG TAB PO SCH (05:58)
--- NOTE | 2018-07-10 07:49 | EKG ---
Test Reason : POST MELANIE/CARDIOVERSI Blood Pressure : / mmHG Vent. Rate : 070 BPM Atrial Rate : 070 BPM P-R Int : 252 ms QRS Dur : 104 ms QT Int : 476 ms P-R-T Axes : 101 097 118 degrees QTc Int : 514 ms Suspect arm lead reversal, interpretation assumes no reversal Sinus rhythm with 1st degree A-V block Rightward axis Nonspecific ST and T wave abnormality Prolonged QT Abnormal ECG When compared with ECG of 04-JUL-2018 15:07, (Unconfirmed) Sinus rhythm has replaced Atrial fibrillation QRS duration has decreased ST depression in lateral leads. Confirmed by MO VALENTINE ([id number]) on 07/10/2018 7:48:23 AM Referred By: MICHELL Confirmed By:MO VALENTINE
[2018-07-10] MEDS: Isosorbide Dinitrate 20 MG TAB PO SCH (08:25)
[2018-07-10] MEDS: Apixaban 5 MG TAB PO SCH (08:25)
[2018-07-10] MEDS: Carvedilol 25 MG TAB PO SCH (08:27)
[2018-07-10] MEDS: Amiodarone 200 MG TAB PO SCH (08:27)
--- NOTE | 2018-07-10 09:35 | PDOC.CTH ---
Cardiology Progress Note - Subjective The pt seen and examined. No overnight. No cardiac complaints. the pt stated he can breath better today - Objective Vital Signs Temp Pulse Resp BP Pulse Ox 07/10/18 07:55 96.5 F L 69 14 150/86 H 94 L 07/10/18 04:00 97.6 F 67 20 136/77 94 L 07/10/18 00:00 98.4 F 68 16 117/72 Admit Weight 204 lb 11.2 oz Weight 179 lb 8 oz 07/09/18 07/10/18 07/11/18 06:59 06:59 06:59 Intake Total 1310 250 Output Total 1375 650 Balance -65 -400 - Physical Examination General/Neuro: alert & oriented x3 Neck: no JVD present Lungs: CTA Heart: RRR Abdomen: soft Extremities: other: (No edema) - Telemetry Telemetry Rhythm: SR - Labs Result Diagrams: 07/09/18 05:46 07/09/18 05:46 Troponin/CKMB Troponin I Less than 0.010 ng/mL (< 0.028) 07/04/18 21:48 - Assessment/Plan 1. 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 Not significant to cause this degree of CMY. 2. Acute on Chronic systolic HF - stable with Lasix IV BID and BBlocker; not on ANGUS/ARB 2/2 CKD 3. persist Afib with S/p DCCV on 07/09/2018 - Remains in SR; On Eliquis 5mg BID , Coreg 12.5mg BID, and Amiodarone 200mg TID since 2100 on 07/09/2018, which will be titrate 200mg TID for 2wks, BID for 2wks, and qd. 4. HTN - stable 5. Mod MR - cont. to monitor 6. Hypothyroidism - managed by pcp 7. CKD MAR reviewed * MELANIE/DCCV done on 07/09/2018. Converted to NSR. Will change to po amiodarone. * Zoll LifeVest was ordered; but the pt refused to wear LifeVest at home. Pt. seen and eval. by me. I agree with the a/p by the BULLARD MACHINE OPERATOR. He feels much better today. Chest clear. RRR. Review of Systems - Review of Systems Constitutional: reports: no symptoms reported EENTM: reports: no symptoms reported Respiratory: reports: no symptoms reported Cardiac (ROS): reports: no symptoms reported ABD/GI: reports: no symptoms reported : reports: no symptoms reported Skin: reports: no symptoms reported
[2018-07-10] MEDS ORDERED: Amiodarone 200 MG TAB PO SCH (09:40)
[2018-07-10] MEDS ORDERED: Potassium Chloride 20 MEQ TAB PO SCH (10:30)
--- NOTE | 2018-07-10 11:06 | DIS ---
DATE OF ADMISSION: 07/04/2018 DATE OF DISCHARGE: 07/10/2018 PRIMARY CARE PHYSICIAN: Lucille Benavides MD DISCHARGE DISPOSITION: Home. PRIMARY DISCHARGE DIAGNOSES: Acute systolic congestive heart failure stage C, acute kidney failure, and hypokalemia. SECONDARY DISCHARGE DIAGNOSES: Three-vessel coronary artery disease, chronic atrial fibrillation, history of prostate cancer, hypertension, hypothyroidism, macrocytic anemia. PRIMARY PROCEDURE/OPERATION: Cardiac catheterization showed three-vessel CAD. Cardioversion was performed. RADIOLOGICAL INVESTIGATION: Echocardiography showed EF 15% to 20%. SIGNIFICANT LABORATORY DATA: WBC 7.3, hemoglobin 14.1, platelet 164. Sodium 141, potassium 3.1, creatinine 1.2. BNP 937. Cardiac enzyme negative. B12, folate normal. DISCHARGE MEDICATIONS: 1. Eliquis 5 mg p.o. b.i.d. 2. Levothyroxine 50 mcg p.o. daily. 3. Amiodarone 200 mg t.i.d. for 2 weeks, then 200 mg b.i.d. for 2 weeks, then 200 mg daily. 4. Coreg 12.5 mg b.i.d. 5. Lasix 40 mg daily. 6. Isosorbide dinitrate 10 mg b.i.d. CONTRAINDICATION: The patient is not on ANGUS inhibitor or ARB because of his allergy. CODE STATUS: The patient is full code. INPATIENT GREEN JOBS TRAINER: Cardiology group with Dr. Echols was following while in hospital. TEST RESULTS PENDING ON DISCHARGE: None. ALLERGIES: AVOCADO, LISINOPRIL, SULFA, AND ARB. DISCHARGE PLAN: Posthospital, the patient will follow up with primary care physician and Dr. Echols as instructed. The patient will follow up with [facility] as well. He will have outpatient cardiac rehab. He has appointment with primary care physician on July 16, 2018 at 12:15 p.m. HOSPITAL COURSE: An 88-year-old male, who was admitted by Dr. Omero Rebolledo, please see his H and P for further details. The patient was having increasing shortness of breath. He was brought to the ER. At that time, he was found with new onset congestive heart failure. His BNP was elevated and his clinical picture was consistent with heart failure. He was treated with Lasix. He also had cardiorenal syndrome even with Lasix, his renal function improved to normal. Echocardiography showed new systolic heart failure and that is why Cardiology performed cardiac cath, which showed three-vessel coronary artery disease. The patient's intensity of three-vessel coronary artery disease was mild and medical therapy was advised. The patient was treated with Lasix and now he is euvolemic, he has improved significantly. This patient declined LifeVest option, which was recommended on discharge. The patient also underwent cardioversion for atrial fibrillation. The patient was on Tambocor, which was discontinued and amiodarone was started during this admission, tapering dose of amiodarone was prescribed. He will continue above-mentioned medication upon discharge. All new medication prescription sent to his pharmacy. The patient is seen and examined at bedside today. REVIEW OF SYSTEMS: All review of systems reviewed with him and negative. PHYSICAL EXAMINATION: VITAL SIGNS: Currently, temperature 96.5, pulse 69, respiratory rate 14, saturation 94% on room air, weight 179 pounds, and blood pressure 136/77. GENERAL: The patient is currently alert and awake. No obvious acute distress. HEENT: Head, normocephalic and atraumatic. Eyes, pupils are round and reactive to light. Extraocular muscles intact. ENT, oropharynx within normal limit. Moist mucous membranes. No oral lesion. No pharyngeal erythema. No exudate. NECK: Supple. No JVD. No thyromegaly. No carotid bruit. LUNGS: Clear. CARDIAC: S1 and S2, appears irregular. NEUROLOGIC: Nonfocal examination. Overall, the patient is medically stable for discharge. Cardiology cleared for discharge as well. Job ID: [id number]
[2018-07-10 12:12] VITALS: BP 116/63; TEMP 97.9
--- NOTE | 2018-07-10 19:24 | OP ---
DATE OF PROCEDURE: 07/10/18 INDICATION FOR PROCEDURE: This is an 88-year-old patient with atrial fibrillation, severe decrease in left ventricular systolic function with some mild to moderate coronary artery disease. He was advised to undergo electrocardio version of the atrial fibrillation in hopes that we could improve his left ventricular systolic funct ion. He has lost his atrial kick. He was taken to the recovery area where he underwent short acting propofol and a transesophageal prob e was easily passed down the distal esophagus and impressions are as follows: 1. Severe decrease in left ventricular function. Ejection fracture is at best 20-25%. 2. Moderate mitral and tricuspid valve regurgitation. The mitral valve is more moderate to sever e. 3. Left atrial dilatation. 4. No evidence of left atrium and left atrial appendage thrombus. 5. Mild aortic valve regurgitation. Using one attempt at 200 joules, The patient was successfully converted back to normal sinus rhythm. There were no complications or difficulties encountered. He was given short acting propofol for the p rocedure.
[2018-07-11] MEDS ORDERED: Furosemide 40 MG TAB PO SCH (07:30)
--- NOTE | 2018-07-12 09:49 | PQF ---
ANAYELI JOSE, SARAH ADKINS MD [id number] [facility]-281 [id number] CLINICAL DOCUMENTATION CLARIFICATION FORM: POST DISCHARGE Addendum to original discharge summary date: ____ Late entry note date: __ DATE: 07/12/18 ATTN: Dr. Horvath, Please exercise your independent, professional judgment in responding to the clarification form. Clinical indicators are provided on the bottom of this form for your review Please check appropriate box(s): [ ] Chronic Renal Failure please specify Stage of CKD (see below) [ ] ESRD [ x] Other diagnosis acue kidney failure on baseline ckd 3 [ ] Unable to determine In addition, please specify: Present on Admission (POA): [ x ] Yes [ ] No [ ] Unable to determine National Kidney Foundation Guidelines for CKD Staging Stage I Kidney damage with normal or increased GFR GFR > 90 Stage II Kidney damage with mildly decreased GFR GFR 60-89 Stage III Kidney damage with moderately decreased GFR GFR 30-59 Stage IV Kidney damage with severely decreased GFR GFR 16-29 Stage V Kidney failure GFR<15 ESRD End Stage Renal Disease On dialysis Acute Renal Failure/Acute Kidney Failure defined as: Increases in SCr by (>) 0.3 mg/dl within 48 hours OR- Increases in SCr by (>) 1.5 times baseline, known or presumed to have occurred within the prior 7 days OR- Urine volume < 0.5 ml/kg/hour for 6 hours (KDIGO supplement 2012 for RIFLE/BAO criteria) For continuity of documentation, please document condition throughout progress notes and discharge summary. Thank You. CLINICAL INDICATORS - SIGNS / SYMPTOMS / LABS CKD---07/10. 07/11 Progress note GFR-45---07/04 Labs SOB and lower extremity edema--H&P RISK FACTORS: Acute Renal Failure--Disharge Summary Hypertension--H&P TREATMENTS: Not on ANGUS/ARB 2/2 CKD--07/10 Progress notes Monitoring of labs Thank you, Lisa Chatman, [facility] 07/12/18 9:44AM (This form is maintained as a part of the permanent medical record) 2015 [email or web address]. All Rights Reserved [email or web address] [phone] MTDD
--- NOTE | 2018-07-14 14:05 | EKG ---
Test Reason : SOB Blood Pressure : / mmHG Vent. Rate : 087 BPM Atrial Rate : 125 BPM P-R Int : 000 ms QRS Dur : 132 ms QT Int : 434 ms P-R-T Axes : 000 102 090 degrees QTc Int : 522 ms Atrial fibrillation Rightward axis Non-specific intra-ventricular conduction block Abnormal ECG Confirmed by PONCHO MINA M.D. ([id number]), news videotape editor JEREMIAH GARVIN ([id number]) on 07/14/2018 2:04:49 PM Referred By: Confirmed By:PONCHO MINA M.D.
== END 2018-07-10 13:45 | disposition home or self-care (01) | DRG 286 ==
LOC: ERS 14:59 → ERHOLD 17:53 → 2NO 20:00
PROVIDERS: ADMIT Emergency Medicine; ATTEND Emergency Medicine
PROC: 4A023N7 Measurement of Cardiac Sampling and Pressure, Left Heart, Percutaneous Approach (ICD-10-PCS; principal; 2018-07-06)
PROC: B2111ZZ Fluoroscopy of Multiple Coronary Arteries using Low Osmolar Contrast (ICD-10-PCS; 2018-07-06)
PROC: B246ZZ4 Ultrasonography of Right and Left Heart, Transesophageal (ICD-10-PCS; 2018-07-09)
PROC: 5A2204Z Restoration of Cardiac Rhythm, Single (ICD-10-PCS; 2018-07-10)
DX: I13.0 Hypertensive heart and chronic kidney disease with heart failure and stage 1 through stage 4 chronic kidney disease, or unspecified chronic kidney disease (principal); I50.21 Acute systolic (congestive) heart failure; I48.1 Persistent atrial fibrillation; Q21.1 Atrial septal defect; E03.9 Hypothyroidism, unspecified; I34.0 Nonrheumatic mitral (valve) insufficiency; I35.1 Nonrheumatic aortic (valve) insufficiency; I07.1 Rheumatic tricuspid insufficiency; E87.6 Hypokalemia; E78.5 Hyperlipidemia, unspecified; I25.10 Atherosclerotic heart disease of native coronary artery without angina pectoris; D53.9 Nutritional anemia, unspecified; N18.3 Chronic kidney disease, stage 3 (moderate); I42.9 Cardiomyopathy, unspecified; Z79.01 Long term (current) use of anticoagulants; Z79.899 Other long term (current) drug therapy; Z85.46 Personal history of malignant neoplasm of prostate; Z92.3 Personal history of irradiation; Z96.641 Presence of right artificial hip joint; Z82.49 Family history of ischemic heart disease and other diseases of the circulatory system; Z88.2 Allergy status to sulfonamides; Z88.8 Allergy status to other drugs, medicaments and biological substances
CPT/HCPCS: 36415; 70450; 71045; 71046; 80048; 80053; 81003; 81015; 82550; 82607; 82746; 83735; 83880; 84443; 84484; 85025; 92960; 93005; 93010; 93306; 93312; 93458; 93798; 94760; 96360; 96361; 96374; 99152; C1769; J0282; J0360; J1644; J1940; J2250; J2704; J2765; J7070; Q9967

== ENCOUNTER 2018-08-23 07:42 | Emergency (ER) | payer MEDICARE, BC | END 2018-08-23 08:42 | disposition home or self-care (01) | LOC: ERS 07:42 | DX: S61.412A Laceration without foreign body of left hand, initial encounter (principal); E03.9 Hypothyroidism, unspecified; I48.91 Unspecified atrial fibrillation; I10 Essential (primary) hypertension; Z85.46 Personal history of malignant neoplasm of prostate; Z79.899 Other long term (current) drug therapy; W01.0XXA Fall on same level from slipping, tripping and stumbling without subsequent striking against object, initial encounter | CPT/HCPCS: 12001 ==

== ENCOUNTER 2018-09-06 09:16 | Observation (INO) | payer MEDICARE, BC ==
[2018-09-06 10:27] LABS: #Lymphocytes 0.4 thou/uL (1.20-3.40); #Monocytes 0.9 thou/uL (0.11-0.59); #Neutrophils 10.5 thou/uL (1.40-6.50); %Basophils 0.1 % (0.0-1.0); %Eosinophils 0.3 % (0.0-10.0); %Lymphocytes 3.6 % (21.0-51.0); %Monocytes 7.2 % (0.0-10.0); %Neutrophils 88.8 % (42.0-75.0); Hemoglobin 13.3 g/dL (14.0-18.0); Mean Corpuscular HGB CONC 34.4 g/dL (32.0-36.0); Mean Corpuscular Hemoglobin 34.2 pg (27.0-31.0); Mean Corpuscular Volume 99.3 fL (78.0-98.0); Mean Platelet Volume 9.3 fL (7.4-10.4); Platelet Count 198 thou/uL (130-400); RBC Distribution Width 11.9 % (11.5-14.5); White Blood Cell (WBC) Count 11.8 thou/uL (4.8-10.8)
[2018-09-06 10:51] LABS: ALT (SGPT) 13 U/L (8-55); AST (SGOT) 18 U/L (5-34); Albumin 4.1 g/dL (3.4-4.8); Alkaline Phosphatase 73 U/L (40-150); Anion Gap 19 mmol/L (10-20); BUN (Urea Nitrogen) 25 mg/dL (8.4-25.7); Bilirubin, Total 1.1 mg/dL (0.2-1.2); Calc. Creatinine Clearance 0 mL/min (70-130); Calcium 9.4 mg/dL (7.8-10.44); Carbon Dioxide 23 mmol/L (23-31); Chloride 99 mmol/L (98-107); Estimated GFR-MDRD 46; Globulin 3.6 g/dL (2.4-3.5); Glucose 94 mg/dL (83-110); Potassium 4.3 mmol/L (3.5-5.1); Protein, Total 7.7 g/dL (5.8-8.1); Sodium 137 mmol/L (136-145)
--- NOTE | 2018-09-06 11:09 | CT ---
CT Brain WO Con HISTORY:Fall with forehead laceration COMPARISON: 07/03/2018 study FINDINGS: There is generalized ventricular and sulcal prominence. There are no signs of intracerebral hemorrhage or extra-axial fluid collections. No mass lesion or mass. A left frontal scalp hematoma is present. Mastoid air cells and visualized sinuses are clear. IMPRESSION: No acute intracranial abnormalities.
--- NOTE | 2018-09-06 11:11 | CT ---
CT Cervical Spine WO Con HISTORY:Fall with neck pain COMPARISON: None. FINDINGS: The vertebral bodies are normal in height. The bones appear demineralized. There are degene rative facet changes. The facets are normal alignment. Moderate disc narrowing is seen at C3-4 and C5-6. There is marked right-sided foraminal narrowing at C3-4. There is also moderate right-sided foraminal narrowing at C5-6. No central canal stenosis is noted. The lung apices are clear. IMPRESSION: No CT evidence of fracture of the cervical spine.
[2018-09-06] MEDS ORDERED: Lidocaine 1% (PF) 30 ML VIAL ONE (12:08)
--- NOTE | 2018-09-06 13:01 | RAD ---
Exam: Chest one view HISTORY:Fall with injury and pain Comparison: 07/03/2018 FINDINGS: Lungs: Hyperinflated with interstitial prominence Cardiac silhouette:Stable Pulmonary vessels: Normal Pleural Spaces: Clear Pneumothorax: None Osseous abnormalities: None of acuity. IMPRESSION: No focal consolidation.
[2018-09-06] MEDS ORDERED: Acetaminophen 500 MG TAB ONE (13:43)
[2018-09-06] MEDS ORDERED: Ondansetron PF 4 MG/2 ML Vial IVP PRN (14:14)
[2018-09-06] MEDS ORDERED: Bisacodyl 10 MG SUPP PR PRN (14:14)
--- NOTE | 2018-09-06 14:17 | RAD ---
4 VIEWS LEFT KNEE: Date: 09/06/18 HISTORY: Left knee pain after fall. FINDINGS: 4 views left knee show no evidence of acute fracture or dislocation. Moderate tricompartmental joint space narrowing and osteophyte formation seen consistent with osteoarthritis. No knee effusion is see n. IMPRESSION: Moderate left knee osteoarthritis without acute osseous abnormality. POS: TPC
--- NOTE | 2018-09-06 14:18 | RAD ---
SINGLE VIEW PELVIS: Date: 09/06/18 COMPARISON: 12/13/17. HISTORY: Fall with pelvic pain and left leg pain. FINDINGS: Single view of the pelvis shows the patient to be status post right hip arthroplasty without perihard corcoran lucency or fracture. There is no evidence of acute fracture or dislocation. Degenerative changes are seen in the lumbar spine. IMPRESSION: No evidence of acute osseous abnormality. POS: TPC
[2018-09-06 14:44] LABS: Troponin I 0.083 ng/mL (< 0.028)
--- NOTE | 2018-09-06 15:06 | HP ---
PRIMARY CARE PROVIDER: Lucille Benavides MD CHIEF COMPLAINT: Fall. HISTORY OF PRESENT ILLNESS: Mr. Brown is a pleasant 88-year-old gentleman, who was seen at [facility] on September 06, 2018. He was hospitalized at [facility] from July 04 to July 10 of this year for acute systolic congestive heart failure, acute kidney failure, and hypokalemia. He reports that he was doing well until two days ago. At that time, he started having loss of appetite and poor balance. At baseline, he ambulates with a cane. He lives in a house. He reports generalized weakness over the last 2 days. He also reports lightheadedness. Today morning, he went out of his house to pickup the newspaper. He leaned forward to grape picker the newspaper. He reports slipping and falling on the ground. He reports hitting the left side of his body on the ground. He denies loss of consciousness. He reports that he was unable to get back up on his feet. It was raining heavily, and he was on the ground for 1-1/2 hours before he was found by a bystander. EMS was called and the patient was brought to the emergency room. He denies any fevers or chills. He denies any nausea or vomiting. He denies any abdominal pain. He denies any chest pain or palpitations. REVIEW OF SYSTEMS: All other systems reviewed and found to be negative. PAST MEDICAL HISTORY: Chronic atrial fibrillation, hypertension, systolic congestive heart failure, hypothyroidism, prostate cancer, status post radiation therapy. PAST SURGICAL HISTORY: Appendectomy, prostate biopsy, radium seed implants, bilateral cataract surgeries, right hip replacement. FAMILY HISTORY: The patient denies any family history of premature coronary artery disease. SOCIAL HISTORY: The patient denies tobacco use or recreational drug use. He drinks one beer a week. ALLERGIES: LISINOPRIL AND SULFA. CURRENT MEDICATIONS: 1. Amlodipine 10 mg daily. 2. Carvedilol 25 mg two times a day. 3. Eliquis 5 mg two times a day. 4. Furosemide 40 mg daily. 5. Isosorbide mononitrate 60 mg daily. 6. Levothyroxine 50 mcg daily. CODE STATUS: I discussed his code status. He is full code. PHYSICAL EXAMINATION: GENERAL: On examination, Mr. Brown is awake and alert, not in acute distress. VITAL SIGNS: Blood pressure is 159/77, pulse 91, respiratory rate 25, and oxygen saturation 94% on room air. He is afebrile. EYES: No scleral icterus, no conjunctival pallor. ENT: Dry mucosal membranes, no oropharyngeal erythema or exudates. NECK: Supple, nontender, trachea is midline. RESPIRATORY: Accessory muscles of breathing are not active. Chest wall movements are symmetric bilaterally. LUNGS: Clear to auscultation without wheeze, rhonchi, or crepitations. CARDIOVASCULAR: S1 and S2 are heard, regular. Peripheral pulses palpable. No carotid bruit. No pericardial rub. ABDOMEN: Soft, nontender, bowel sounds are heard. NEUROLOGIC: Cranial nerves 2 through 12 intact, deep tendon reflexes 2+. MUSCULOSKELETAL: Power is 5/5 in all four extremities. SKIN: He has a laceration over the left side of the forehead. He has swelling and bruise over the left side of the forehead. He has bruises over the left arm and over the left knee. LYMPHATIC: No cervical lymphadenopathy. PSYCHIATRIC: Normal mood, normal affect, the patient is oriented to person, place, and time. LABORATORY DATA: Mr. Brown's labs and investigations were reviewed. I reviewed his electrocardiogram, which has a lot of artifact, but appears to show normal sinus rhythm, no ST changes to suggest an acute coronary syndrome. I also reviewed his chest x-ray, which does not show any pulmonary infiltrates. He had CT scan of the cervical spine, which did not show any evidence of fracture. He also had noncontrast CT scan of the brain, which did not show any acute intracranial abnormalities. He has leukocytosis with 11,800 white cells, of which 88.8% are neutrophils, macrocytic anemia with hemoglobin 13.3, normal platelet count, normal electrolytes, elevated creatinine of 1.45, creatinine was 1.20 on July 09 and 1.33 on July 05 of this year, BNP mildly elevated at 164.3, and an unremarkable liver profile. ASSESSMENT AND PLAN: Mr. Brown is a pleasant 88-year-old gentleman, who was seen at [facility] on September 06, 2018. His problem list includes: 1. Generalized weakness: Etiology is unclear at this time. We will admit the patient to the hospital for further workup. We will check urine studies. We will also send out blood cultures. We will check TSH. Further management depending on the outcome. The patient will also be monitored on telemetry for any arrhythmias. 2. Fall: Mr. Brown is presenting with a mechanical fall. We will request PT, OT eval and await their recommendations. 3. Atrial fibrillation: We will resume home medications including beta blockers and anticoagulation. We will have his orthostatic vitals assessed, since he had a fall earlier today. Please note that the patient appears to be in normal sinus rhythm at this time. 4. Hypothyroidism: Continue Synthroid, check TSH. 5. Hypertension: Resume home medications, monitor vital signs and titrate antihypertensives as needed. Many thanks for allowing me to participate in your patient's care. Please feel free to contact me with any questions or concerns. LEVEL OF RISK: High. LEVEL OF COMPLEXITY: High. Job ID: [id number]
[2018-09-06 16:40] VITALS: BMI 24.8
[2018-09-06 17:17] LABS: Bilirubin Negative (Negative); Blood, Urine Moderate (Negative); Clarity CLEAR (Clear); Glucose, Urine (Dipstick) Negative (Negative); Leukocyte Negative (Negative); Nitrite Negative (Negative); Protein, Urine (Dipstick) Negative (Neg-Trace); Specific Gravity, Urine 1.008 (1.002-1.036)
[2018-09-06 17:20] LABS: Bacteria/HPF None Seen HPF (None Seen); Hyaline Casts/LPF 0-3 HYALINE CAST LPF (0-3 Hyaline); RBC/HPF 0-3 HPF (0-3); Squamous Epithelial None Seen HPF (0-3); WBC/HPF None Seen HPF (0-3)
[2018-09-06 17:31] LABS: Urine Culture Reflex No No
[2018-09-06 18:49] LABS: Troponin I 0.107 ng/mL (< 0.028)
[2018-09-06] MEDS: Acetaminophen 325 MG TAB PO PRN (20:42)
[2018-09-06 20:49] LABS: Troponin I 0.098 ng/mL (< 0.028)
[2018-09-07 05:54] LABS: #Basophils 0.1 thou/uL (0.0-0.2); #Eosinphils 0.2 thou/uL (0.0-0.7); #Lymphocytes 1.7 thou/uL (1.20-3.40); #Monocytes 0.8 thou/uL (0.11-0.59); %Basophils 0.7 % (0.0-1.0); %Lymphocytes 22.5 % (21.0-51.0); %Monocytes 9.9 % (0.0-10.0); Hemoglobin 13.8 g/dL (14.0-18.0); Mean Corpuscular HGB CONC 34.5 g/dL (32.0-36.0); Mean Corpuscular Hemoglobin 34.4 pg (27.0-31.0); Mean Corpuscular Volume 99.6 fL (78.0-98.0); Mean Platelet Volume 7.8 fL (7.4-10.4); Platelet Count 166 thou/uL (130-400); RBC Distribution Width 11.6 % (11.5-14.5); Red Blood Cell (RBC) Count 4.02 mill/uL (4.70-6.10); White Blood Cell (WBC) Count 7.6 thou/uL (4.8-10.8)
[2018-09-07 06:06] LABS: Anion Gap 14 mmol/L (10-20); BUN (Urea Nitrogen) 23 mg/dL (8.4-25.7); Calc. Creatinine Clearance 46 mL/min (70-130); Calcium 9.2 mg/dL (7.8-10.44); Carbon Dioxide 24 mmol/L (23-31); Chloride 102 mmol/L (98-107); Estimated GFR-MDRD 54; Glucose 104 mg/dL (83-110); Potassium 3.7 mmol/L (3.5-5.1); Sodium 136 mmol/L (136-145)
[2018-09-07] MEDS: Acetaminophen 325 MG TAB PO PRN ×2 (06:43→15:47)
--- NOTE | 2018-09-07 12:42 | PRG ---
DATE OF SERVICE: 09/07/2018 CHIEF COMPLAINT: Balance issues, generalized weakness. HISTORY OF PRESENT ILLNESS: This is an 88-year-old male with history of chronic systolic heart failure; chronic atrial fibrillation; Eliquis coagulopathy; chronic kidney disease, stage 2; hypothyroidism; and hypertension, who came to the emergency department after a fall with left face trauma as well as left knee trauma. SUBJECTIVE: The patient is seen and evaluated at bedside. His son is present. He has no acute complaints. Per nurse, orthostatic is positive. REVIEW OF SYSTEMS: All systems are reviewed and negative except for the ones mentioned above. PHYSICAL EXAMINATION: VITAL SIGNS: Blood pressure 90/57, pulse 97, respirations 20, oxygen saturation 92% on room air, temperature 98 degrees Fahrenheit. GENERAL: He appears in no distress. He is awake, alert, and oriented x3. HEAD AND NECK: Left forehead laceration is sutured with surrounding bruising. Pupils are reactive to light. Extraocular muscles are intact. Mucous membranes are moist. Neck is supple with no bruits. CARDIOVASCULAR: Rhythm and rate are regular. No audible murmur, rubs, or gallops. PULMONARY: Clear to auscultation bilaterally. No wheezes, rhonchi, or crackles. ABDOMEN: Soft, nontender, and nondistended. Positive bowel sounds. EXTREMITIES: Left bruising of the knee at the patella. Range of motion is intact. No palpable edema. SKIN: Left forehead laceration with sutures. Hematoma of the left forehead and left knee. Generalized pallor. NEUROLOGIC: Cranial nerves 2 through 12 are grossly intact. Deep tendon reflexes are normoreflexic. Muscle tone is normal. Muscle strength is 5/5. LABORATORY DATA: Laboratory abnormalities: Hemoglobin 13.8, hematocrit 40. Chemistries, normal. Previous labs are reviewed. IMAGING STUDIES: Reports are reviewed. EKG: Reviewed. ASSESSMENT AND PLAN: 1. Generalized weakness: Suspect chronic orthostasis due to aggressive cardiovascular treatment. We will obtain PT and OT evaluation for possible inpatient rehabilitation admission. 2. Status post mechanical fall: Evaluation as above. 3. Near syncope: Positive for orthostatics. We will hold blood pressure medications for now as well as diuretics. We will check orthostatics every 8 hours. We will resume his home treatment slowly. 4. Chronic atrial fibrillation: Status post cardioversion and currently in sinus rhythm. Holding beta-blockers for now. We will hold Eliquis for 1 day. 5. Eliquis coagulopathy: See above. 6. Reactive leukocytosis: Continue to monitor. 7. Tuwvl-ot-dtuiwtd kidney disease, stage 2: Secondary to dehydration, likely from diuretics. Hold diuretics for now. Resolved. 8. Chronic systolic heart failure: Compensated. 9. History of hypertension: See above. 10. Chronic hypothyroidism: Continue Synthroid. 11. Left forehead laceration: Status post sutures. No need for antibiotics. CODE STATUS: Full code. CORE MEASURES: Sequential compression devices. We will resume Eliquis tomorrow. DISPOSITION: Telemetry. PROGNOSIS: Guarded. CLINICAL STATUS: Guarded. EXPECTED DISCHARGE: To be determined based on inpatient rehabilitation evaluation. TOTAL TIME SPENT: 32 minutes. Job ID: [id number]
--- NOTE | 2018-09-08 03:06 | DIS ---
DATE OF ADMISSION: 09/06/2018 DATE OF DISCHARGE: 09/07/2018 ADMITTING PHYSICIAN: Dr. Ulysses Urbina. PRIMARY CARE PHYSICIAN: Dr. Lucille Benavides. ADMITTING DIAGNOSES: 1. Generalized weakness. 2. Fall. 3. Atrial fibrillation. 4. Hypothyroidism. 5. Hypertension. DISCHARGE DIAGNOSES: 1. Generalized weakness. 2. 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 3. Orthostatic hypotension. 4. Near syncope. 5. Chronic atrial fibrillation. 6. Eliquis, coagulopathy. 7. Reactive leukocytosis. 8. Nupxk-wf-yefrhbn kidney disease, stage 2; resolved. 9. Chronic systolic heart failure. 10. Essential hypertension. 11. Chronic hypothyroidism. 12. Left forehead laceration. CONSULTS: Inpatient rehabilitation. PROCEDURES: None. SPECIAL IMAGING: CT scan of the cervical spine, head. CT scan of the brain without contrast. HOSPITAL COURSE: This is an 88-year-old male with history of chronic systolic heart failure, chronic atrial fibrillation, Eliquis coagulopathy, chronic kidney disease, stage 2, hypothyroidism, essential hypertension who came to the Emergency Department after sustaining a fall and left forehead laceration as well as left knee trauma. He was placed on observation for close monitoring. He was found to be orthostatic. He was approved for inpatient rehabilitation evaluation and treatment today. He will be discharged in stable condition. PHYSICAL EXAMINATION: See details on progress note today. LABORATORY DATA: See details on progress note today. DISCHARGE DISPOSITION: Inpatient rehabilitation. DISCHARGE CONDITION: Stable. DISCHARGE DIET: Cardiac diet as tolerated. DISCHARGE ACTIVITY: Increase activity as tolerated. DISCHARGE MEDICATIONS: See medical reconciliation for details. DISCHARGE FOLLOWUP: With primary retinal angiographer and primary care physician in 1 or 2 weeks. DISCHARGE INSTRUCTIONS: 1. The patient was instructed to return to the emergency department, if symptoms are worsen. 2. To take his medications as directed and not to miss any appointments. TIME OF DISCHARGE AND PLANNIN minutes. Job ID: [id number]
[2018-09-08 05:57] LABS: #Eosinphils 0.2 thou/uL (0.0-0.7); #Lymphocytes 1.7 thou/uL (1.20-3.40); #Monocytes 0.7 thou/uL (0.11-0.59); #Neutrophils 4.3 thou/uL (1.40-6.50); %Basophils 0.5 % (0.0-1.0); %Eosinophils 2.7 % (0.0-10.0); %Monocytes 9.4 % (0.0-10.0); %Neutrophils 62.3 % (42.0-75.0); Mean Corpuscular Hemoglobin 34.3 pg (27.0-31.0); Mean Platelet Volume 7.9 fL (7.4-10.4); Platelet Count 175 thou/uL (130-400); RBC Distribution Width 11.4 % (11.5-14.5); Red Blood Cell (RBC) Count 4.07 mill/uL (4.70-6.10); White Blood Cell (WBC) Count 6.9 thou/uL (4.8-10.8)
[2018-09-08] MEDS ORDERED: Levothyroxine Sodium 50 MCG TAB PO SCH (06:00)
[2018-09-08 06:08] LABS: Anion Gap 12 mmol/L (10-20); BUN (Urea Nitrogen) 23 mg/dL (8.4-25.7); Calc. Creatinine Clearance 47 mL/min (70-130); Calcium 9.2 mg/dL (7.8-10.44); Carbon Dioxide 26 mmol/L (23-31); Chloride 102 mmol/L (98-107); Estimated GFR-MDRD 56; Glucose 96 mg/dL (83-110); Potassium 3.5 mmol/L (3.5-5.1); Sodium 136 mmol/L (136-145)
[2018-09-08] MEDS: Acetaminophen 325 MG TAB PO PRN ×2 (09:31→14:15)
[2018-09-08 11:49] VITALS: BP 140/71; TEMP 98.9
--- NOTE | 2018-09-09 01:48 | DIS ---
DATE OF ADMISSION: 09/06/2018 DATE OF DISCHARGE: 09/08/2018 ADMITTING PHYSICIAN: Dr. Urbina. PRIMARY CARE PHYSICIAN: Dr. Benavides. ATTENDING PHYSICIAN: Dr. Foster. ADMITTING DIAGNOSES: 1. Generalized weakness. 2. Mechanical fall. 3. Atrial fibrillation. 4. Hypothyroidism. 5. Hypertension. DISCHARGE DIAGNOSES: 1. Generalized weakness. 2. Fever (reactive, not recurrent). 3. Status post mechanical fall. 4. Orthostatic hypotension. 5. Near syncope. 6. Chronic atrial fibrillation. 7. Eliquis coagulopathy. 8. Reactive leukocytosis (resolved). 9. Acute on chronic kidney disease stage 2 (resolved). 10. Chronic systolic heart failure. 11. Essential hypertension. 12. Chronic hypothyroidism. 13. Left forehead laceration. CONSULTS: Inpatient rehabilitation. PROCEDURES: None. SPECIAL IMAGIN. CT scan of the cervical spine. 2. CT scan of the head without contrast. HOSPITAL COURSE: This is an 88-year-old male with history of chronic systolic heart failure, chronic atrial fibrillation, Eliquis coagulopathy, chronic kidney disease stage 2, hypothyroidism, and essential hypertension, who came to the emergency department after sustaining a fall and left forehead laceration as well as left knee trauma. He was placed in observation for close monitoring. He was found to be orthostatic. He was initially approved for inpatient rehabilitation, although he developed an elevated temperature to 104 Fahrenheit without evidence of infection. We suspected that this was reactive to the trauma. The elevated temperature is not recurrent. No antibiotics were given and vital signs as well as white blood cell count have remained stable. PHYSICAL EXAMINATION: VITAL SIGNS: Blood pressure 116/63, pulse 81, respirations 17, oxygen saturation 94% on room air, temperature 99.2 Fahrenheit. GENERAL: He appears in no distress. He is awake, alert, and oriented x3. HEAD AND NECK: Left forehead laceration with sutures. Surrounding hematoma. Pupils are reactive to light. Extraocular muscles are intact. Mucous membranes are moist. Neck is supple with no bruits. CARDIOVASCULAR: Rhythm and rate are regular. No audible murmurs, rubs, or gallops. PULMONARY: Clear to auscultation bilaterally. No wheezes, rhonchi, or crackles. ABDOMEN: Soft, nontender, nondistended, positive bowel sounds. EXTREMITIES: Hematoma of the knee at the patella area. Range of motion is intact. No palpable edema. SKIN: Left forehead laceration with sutures. Hematoma of the left knee and forehead extending to the periorbital area. Generalized pallor. NEUROLOGIC: Cranial nerves 2 through 12 are grossly intact. Deep tendon reflexes are normoreflexic. LABORATORY ABNORMALITIES: None. IMAGING STUDIES: Reviewed. EKG reviewed. DISCHARGE DISPOSITION: Inpatient rehabilitation. DISCHARGE CONDITION: Stable. DISCHARGE DIET: Cardiac diet as tolerated. DISCHARGE ACTIVITY: Increase activity as tolerated. Avoid falls. DISCHARGE MEDICATION: See medical reconciliation for details. DISCHARGE FOLLOWUP: With primary putty mixer and primary care physician in one or two weeks. DISCHARGE INSTRUCTIONS: The patient was instructed to return to the emergency department if symptoms are worsened. To take his medications as directed and not to miss any appointments. TIME OF DISCHARGE AND PLANNIN minutes. Job ID: [id number]
--- NOTE | 2018-09-10 05:45 | PQF ---
[facility] POST DISCHARGE CLINICAL DOCUMENTATION IMPROVEMENT CLARIFICATION FORM Todays Date: 09/08/18 Patients Name Humphrey Brown Admit Date 09/06/18 Disch Date 09/06/18 Cake Winder Name Erica Maloney Phoebebrittshalom Email: [email or web address] Cell: [phone] To be completed by Cake Winder: Present Clinical Indicators - Signs / Symptoms Results and Location in Medical Record [ ] Documentation of: [ ] [ ] Documentation of: [ ] [ ] Documentation of: [ ] [ ] Documentation of: [ ] [ ] Risks [ ] [ ] [ ] Treatment [ ] Laceration repair Query for length (cm) of laceration repair done in face [ ] [ ] To be completed by Physician: DO. Mane Cortez The documentation in this patients record requires clarification to ensure coding compliance and accuracy. Check the appropriate box and include in your discharge summary. [ ] [ ] __5.0 cm [ ] __ LACERATION-SINGLE REPAIR [facility] Sep 06, 2018 12:42 KARLI Bearden, Piedad TIMEOUT Side and/or site verified, Patient identification confirmed, Sterile procedures observed. Side and/or site verified, Patient identification confirmed, Sterile procedures observed, Verbal consent obtained, No contamination, Deep structures not involved, no bony deformity, no edema, no ecchymosis, no tendon involvement , no joint involvement, Wound not near a neurovascular bundle, No pulse deficit , Capillary refill less than 2 seconds, Distal motor intact, Distal sensation intact, No signs of compartment syndrome, Local infiltration with, 1% LIDOCAINE without epinephrine, 4mL, Patient prepped and draped in usual sterile fashion, Wound irrigated with normal saline, Simple repair of laceration, to the face, total length 5.0 cm, Skin layer closed, using 5.0, prolene suture, 10 sutures, interrupted, After procedure, wound well approximated, antibiotic ointment applied, dressing applied, No complications, Patient tolerated the procedure well, No foreign body present. SIMPLE REPAIR F/E/E/N/L/M 2.6CM-5.0 CM LAC REP SIM 2.6-5.0CM FACE [ ] Please check this box if this does not apply to this patient [ ] Unable to determine [ ] Other diagnosis: Review the following information and exercise your independent professional judgment in responding to the clarification. Based upon the clinical findings, risk factors, and treatment, please clarify if you are treating one of the above probable or suspected diagnoses. Physician Signature: Israel Cortez Date___2018 Time 1833 MTDD
--- NOTE | 2018-09-13 15:25 | EKG ---
Test Reason : Blood Pressure : / mmHG Vent. Rate : 098 BPM Atrial Rate : 097 BPM P-R Int : 000 ms QRS Dur : 132 ms QT Int : 400 ms P-R-T Axes : 000 074 054 degrees QTc Int : 510 ms Wide QRS rhythm Non-specific intra-ventricular conduction block Cannot rule out Septal infarct , age undetermined Abnormal ECG Confirmed by DEIDRA LONGORIA D.O. ([id number]), business editor JEREMIAH GARVIN ([id number]) on 09/13/2018 3:24:49 PM Referred By: Confirmed By:DEIDRA LONGORIA D.O.
== END 2018-09-08 14:33 ==
LOC: ERS 09:16 → 2NO 15:28
PROVIDERS: ADMIT Internal Medicine; ATTEND Internal Medicine
DX: R53.1 Weakness (principal); I95.1 Orthostatic hypotension; I13.0 Hypertensive heart and chronic kidney disease with heart failure and stage 1 through stage 4 chronic kidney disease, or unspecified chronic kidney disease; N18.2 Chronic kidney disease, stage 2 (mild); N17.9 Acute kidney failure, unspecified; I50.22 Chronic systolic (congestive) heart failure; I48.2 Chronic atrial fibrillation; E03.9 Hypothyroidism, unspecified; M54.2 Cervicalgia; S01.81XA Laceration without foreign body of other part of head, initial encounter; S80.02XA Contusion of left knee, initial encounter; E86.0 Dehydration; M17.12 Unilateral primary osteoarthritis, left knee; Z85.46 Personal history of malignant neoplasm of prostate; Z79.01 Long term (current) use of anticoagulants; Z79.899 Other long term (current) drug therapy; Z88.2 Allergy status to sulfonamides; Z88.8 Allergy status to other drugs, medicaments and biological substances; Z91.018 Allergy to other foods; Z96.641 Presence of right artificial hip joint; W01.0XXA Fall on same level from slipping, tripping and stumbling without subsequent striking against object, initial encounter
CPT/HCPCS: 12013; 70450; 71045; 72125; 72170; 73564; 80048 ×2; 81001; 82550; 83735; 83880; 84484 ×2; 85025 ×2; 87040; 93005; 97116; 97139 ×2; 97535; 99285; G0378 ×2; 36415; 36416; 80053; 84443; J2001

== ENCOUNTER 2018-12-02 09:28 | Inpatient (IN) | payer MEDICARE, BC ==
[2018-12-02 10:08] LABS: Hemoglobin 12.5 g/dL (14.0-18.0); Mean Corpuscular HGB CONC 33.7 g/dL (32.0-36.0); Mean Corpuscular Hemoglobin 36.1 pg (27.0-31.0); Mean Platelet Volume 8.8 fL (7.4-10.4); Platelet Count 151 thou/uL (130-400); RBC Distribution Width 12.9 % (11.5-14.5); Red Blood Cell (RBC) Count 3.47 mill/uL (4.70-6.10); White Blood Cell (WBC) Count 5.9 thou/uL (4.8-10.8)
--- NOTE | 2018-12-02 10:11 | RAD ---
Chest AP view INDICATION: Weakness and shortness of breath COMPARISON: September 08, 2018 FINDINGS: Lungs:There is hazy airspace opacity within the right lower lobe Cardiac silhouette pulmonary vasculature:There is moderate cardiomegaly which is more pronounced than on the prior exam. There is mild pulmonary vascular congestion Pleural spaces:There are small pleural effusion involving the right lower hemithorax. Left costophren ic angle is excluded Upper abdomen:No abnormality seen. Osseous structures: No acute osseous abnormality. Additional findings:None. IMPRESSION: Moderate cardiomegaly with mild pulmonary vascular congestion congestion and a small righ t pleural effusion. Recommend correlation for mild CHF. There is right infrahilar airspace opacity which may be related to edema or pneumonia.
[2018-12-02 10:22] LABS: #Eosinphils 0.2 thou/uL (0.0-0.7); #Lymphocytes 1.1 thou/uL (1.20-3.40); #Monocytes 0.6 thou/uL (0.11-0.59); %Basophils 0.3 % (0.0-1.0); %Eosinophils 3.8 % (0.0-10.0); %Lymphocytes 18.6 % (21.0-51.0); %Monocytes 9.6 % (0.0-10.0); %Neutrophils 67.7 % (42.0-75.0); ALT (SGPT) 16 U/L (8-55); AST (SGOT) 14 U/L (5-34); Albumin 3.7 g/dL (3.4-4.8); Alkaline Phosphatase 80 U/L (40-150); Anion Gap 12 mmol/L (10-20); BUN (Urea Nitrogen) 24 mg/dL (8.4-25.7); Bilirubin, Total 0.9 mg/dL (0.2-1.2); Calc. Creatinine Clearance 0 mL/min (70-130); Calcium 9.1 mg/dL (7.8-10.44); Carbon Dioxide 25 mmol/L (23-31); Chloride 109 mmol/L (98-107); Estimated GFR-MDRD 45; Globulin 2.9 g/dL (2.4-3.5); Glucose 95 mg/dL (83-110); MDiff Complete? YES; Macrocytosis SLIGHT = 6-15 cells (100X) (0-5/hpf); Platelet Morphology Comment Appears Adequate; Polychromasia SLIGHT = 2-3 cells (100X) (0-2/hpf); Potassium 3.8 mmol/L (3.5-5.1); Protein, Total 6.6 g/dL (5.8-8.1); Sodium 142 mmol/L (136-145)
[2018-12-02 10:45] LABS: CKMB 4.1 ng/mL (0-6.6)
[2018-12-02] MEDS ORDERED: Diltiazem 125 MG in Sodium Chloride 0.9% 100 ML IVPB SCH (12:30)
[2018-12-02] MEDS ORDERED: Aspirin 325 MG TAB ONE (12:50)
[2018-12-02 13:47] LABS: Troponin I Less than 0.010 ng/mL (< 0.028)
[2018-12-02] MEDS ORDERED: Bisacodyl 10 MG SUPP PR PRN (14:19)
[2018-12-02] MEDS ORDERED: Cepastat Lozenges 1 LOZ PO PRN (14:19)
[2018-12-02] MEDS ORDERED: Ondansetron PF 4 MG/2 ML Vial IVP PRN (14:19)
[2018-12-02] MEDS ORDERED: Ondansetron ODT 4 MG TAB PO PRN (14:19)
[2018-12-02] MEDS ORDERED: HYDROcodone/Acetaminophen 5/325 mg Tablet PO PRN (14:19)
[2018-12-02] MEDS ORDERED: Zolpidem Tartrate 5 MG TAB PO PRN (14:19)
[2018-12-02] MEDS ORDERED: Calcium Carbonate 500 MG ChewTAB PO PRN (14:19)
[2018-12-02] MEDS ORDERED: Sodium Chloride 0.65% Nasal 44 ML BOT EA NARE PRN (14:19)
[2018-12-02] MEDS ORDERED: Senokot S 8.6-50 MG TAB PO PRN (14:19)
[2018-12-02] MEDS ORDERED: Diabetic Tussin 200 MG/10 ML UDCUP PO PRN (14:19)
[2018-12-02] MEDS ORDERED: Loratadine 10 MG TAB PO PRN (14:19)
[2018-12-02] MEDS ORDERED: hydrALAZINE 20 MG/ML VIAL SLOW IVP PRN (14:19)
[2018-12-02] MEDS ORDERED: Loperamide HCl 2 MG CAP PO PRN (14:19)
[2018-12-02] MEDS ORDERED: Acetaminophen 325 MG TAB PO PRN (14:19)
[2018-12-02] MEDS ORDERED: Artificial Tears 18 DROP/0.9 ML EA EYE PRN (14:19)
[2018-12-02 15:53] LABS: Troponin I 0.011 ng/mL (< 0.028)
--- NOTE | 2018-12-02 16:29 | HP ---
PRIMARY CARE PHYSICIAN: Lucille Benavides MD. REASON FOR ADMISSION: AFib with RVR. HISTORY OF PRESENT ILLNESS: An 88-year-old male, who came to emergency room with a complaint of generalized weakness, fatigue, dizziness, palpitation, mild shortness of breath. These symptoms are going on for last couple of days. The patient lives at [facility], where he was having difficulty obtaining blood pressure through the wrist. The patient was feeling more and more weak, and he was feeling exhausted, and that is why he decided to come to emergency room. In the emergency room, he was found with AFib with RVR and Cardizem bolus was given, and subsequently, Cardizem drip was started. REVIEW OF SYSTEMS: CONSTITUTIONAL: Negative for weight loss or gain, ability to conduct usual activities. SKIN: Negative for rash, itching. EYES: Negative for double vision, pain. ENT/MOUTH: Negative for nose bleeding, neck stiffness, pain, tenderness. CARDIOVASCULAR: Negative for palpitations, dyspnea on exertion, orthopnea. RESPIRATORY: Negative for shortness of breath, wheezing, cough, hemoptysis, fever or night sweats. GASTROINTESTINAL: Negative for poor appetite, abdominal pain, heartburn, nausea, vomiting, constipation, or diarrhea. GENITOURINARY: Negative for urgency, frequency, dysuria, nocturia. MUSCULOSKELETAL: Negative for pain, swelling. NEUROLOGIC/PSYCHIATRIC: Negative for anxiety, depression. ALLERGY/IMMUNOLOGIC: Negative for skin rash, bleeding tendency. Please see my HPI for pertinent positive and negative. All other review of systems reviewed and negative, except as mentioned in the HPI. PAST MEDICAL HISTORY: Chronic atrial fibrillation, hypertension, chronic systolic heart failure, hypothyroidism, and history of prostate cancer, treated with radiation therapy. PAST SURGICAL HISTORY: Appendicectomy, prostate biopsy, radiation seed implant in the prostate, bilateral cataract surgery, right hip replacement. PAST PSYCHIATRIC HISTORY: Reviewed and negative. FAMILY HISTORY: No strong family history of premature coronary artery disease, stroke, or cancer. SOCIAL HISTORY: The patient lives at assisted living facility. No history of tobacco, alcohol, or illicit drug abuse. ALLERGIES: LISINOPRIL AND SULFA DRUGS. CURRENT HOME MEDICATIONS: 1. Eliquis 5 mg p.o. twice daily. 2. Isosorbide dinitrate 60 mg daily. 3. Levothyroxine 50 mcg p.o. daily. 4. Lasix 20 mg p.o. daily. 5. Potassium chloride 10 mEq p.o. daily. EMERGENCY ROOM COURSE: The patient is given Cardizem bolus, and subsequently, Cardizem drip was started. Aspirin 325 mg and IV fluid was given. PHYSICAL EXAMINATION: VITAL SIGNS: On arrival, blood pressure 126/86, pulse 136 and irregular, respiratory rate 20, temperature 98.0, saturation 95% on room air, weight 86 kg. GENERAL: The patient is currently alert, awake, in no obvious acute distress. HEENT: Head; normocephalic, atraumatic. Eyes; pupils round, reactive to light. Extraocular muscles intact. ENT; oropharynx within normal limits. Moist mucous membranes. No oral lesion. No pharyngeal erythema. No exudate. NECK: Supple. No JVD. No thyromegaly. No carotid bruit. LUNGS: Clear to auscultation without any rhonchi or rales. CARDIAC: S1 and S2, irregularly irregular. No murmur. No gallop. No rub. ABDOMEN: Soft. Bowel sounds present. Nontender. Nondistended. No organomegaly. No mass. No suprapubic tenderness. BACK: Unremarkable. No CVA tenderness. EXTREMITIES: Upper extremities, passive movement of all joints are normal. Lower extremity, no edema. Good distal pulsation. SKIN: No skin rash. HEMATOLOGICAL: No lymphadenopathy. NEUROLOGIC: Nonfocal examination. IMAGING STUDIES: EKG showing AFib with RVR. Chest x-ray showing no acute cardiopulmonary process. SIGNIFICANT LABORATORY DATA: CBC; WBC 5.9, hemoglobin 12.5, MCV 107, platelet 151. BMP; sodium 142, potassium 3.8, chloride 109, carbon dioxide 25, BUN 24, creatinine 1.48, glucose 95, calcium 9.1. LFT; AST 14, ALT 16, alkaline phosphatase 80, albumin 3.7. Troponin 0.031, and then, subsequently negative. ASSESSMENT AND PLAN: 1. Atrial fibrillation with rapid ventricular response with a history of chronic atrial fibrillation. 2. Chronic anticoagulation with Eliquis. 3. Chronic systolic heart failure with ejection fraction 20% to 25%, stage C. 4. Hypothyroidism. 5. Demand ischemia of myocardium. 6. Hypertension. 7. Macrocytic anemia. 8. Chronic systolic heart failure, [employer] stage C. PLAN: Cardizem drip. Monitor overnight with the tele. If the patient remains in AFib, then we will consider need for cardioversion. If needed, the patient is already on chronic anticoagulation, so his home medication will be resumed. Plan of care discussed with the patient's family member. The patient's code status is full code. GI prophylaxis with Pepcid 20 mg p.o. b.i.d. Job ID: [id number]
[2018-12-02] MEDS ORDERED: Isosorbide Dinitrate 20 MG TAB PO SCH (21:00)
[2018-12-02] MEDS ORDERED: Famotidine 20 MG TAB PO SCH (21:00)
[2018-12-02] MEDS: Apixaban 5 MG TAB PO SCH (21:16)
[2018-12-02] MEDS: Carvedilol 6.25 MG TAB PO SCH (21:16)
[2018-12-03] MEDS: Levothyroxine Sodium 50 MCG TAB PO SCH (03:34)
[2018-12-03 05:39] LABS: #Eosinphils 0.4 thou/uL (0.0-0.7); #Lymphocytes 1.2 thou/uL (1.20-3.40); #Monocytes 0.5 thou/uL (0.11-0.59); #Neutrophils 3.2 thou/uL (1.40-6.50); %Basophils 0.7 % (0.0-1.0); %Eosinophils 7.4 % (0.0-10.0); %Lymphocytes 22.6 % (21.0-51.0); %Monocytes 9.7 % (0.0-10.0); %Neutrophils 59.6 % (42.0-75.0); Hemoglobin 11.7 g/dL (14.0-18.0); Mean Corpuscular HGB CONC 33.8 g/dL (32.0-36.0); Mean Corpuscular Hemoglobin 36.6 pg (27.0-31.0); Mean Platelet Volume 8.8 fL (7.4-10.4); Platelet Count 177 thou/uL (130-400); RBC Distribution Width 13.9 % (11.5-14.5); Red Blood Cell (RBC) Count 3.21 mill/uL (4.70-6.10); White Blood Cell (WBC) Count 5.4 thou/uL (4.8-10.8)
[2018-12-03 05:48] LABS: Anion Gap 13 mmol/L (10-20); BUN (Urea Nitrogen) 20 mg/dL (8.4-25.7); Calc. Creatinine Clearance 57 mL/min (70-130); Calcium 8.7 mg/dL (7.8-10.44); Carbon Dioxide 19 mmol/L (23-31); Chloride 113 mmol/L (98-107); Estimated GFR-MDRD 58; Glucose 99 mg/dL (83-110); Potassium 3.7 mmol/L (3.5-5.1); Sodium 141 mmol/L (136-145)
[2018-12-03] MEDS: Furosemide 40 MG TAB PO SCH (09:13)
[2018-12-03] MEDS: Apixaban 5 MG TAB PO SCH ×2 (09:13→21:34)
[2018-12-03] MEDS: Carvedilol 6.25 MG TAB PO SCH ×2 (09:13→21:34)
[2018-12-03] MEDS: Potassium Chloride 10 MEQ TAB PO SCH (09:14)
[2018-12-03] MEDS: Cyanocobalamin (Vitamin B-12) 1,000 MCG TAB PO SCH (09:14)
[2018-12-03] MEDS: Folic Acid 1 MG TAB PO SCH (09:14)
--- NOTE | 2018-12-03 10:37 | PDOC.PN ---
- Subjective Encounter Start Date: 12/03/18 Encounter Start Time: 08:45 Patient seen and examined. No new complaints. No overnight events, pt is weak, he is in afib and rate is variable, on cardizem drip - Objective Resuscitation Status - Order Detail: 12/02/18 14:19 Resuscitation Status Routine Resuscitation Status: FULL: Full Resuscitation MAR Reviewed: Yes Vital Signs & Weight: Vital Signs (12 hours) Temp Pulse Resp BP BP Pulse Ox 12/03/18 07:50 98.6 F 113 H 18 145/97 H 94 L 12/03/18 04:10 97.5 F L 98 16 124/87 92 L Weight Weight 200 lb 6.4 oz I&O: 12/02/18 12/03/18 12/04/18 06:59 06:59 06:59 Intake Total 1089.8 Output Total 775 Balance 314.8 Result Diagrams: 12/03/18 04:48 12/03/18 04:48 EKG Reviewed by me: Yes (afib) Phys Exam - Physical Examination Constitutional: NAD HEENT: PERRLA, moist MMs, sclera anicteric Neck: no JVD, supple Respiratory: no wheezing, no rales, no rhonchi Cardiovascular: no significant murmur, irregular Gastrointestinal: soft, non-tender, no distention, positive bowel sounds Musculoskeletal: no edema, pulses present Neurological: non-focal, normal sensation Lymphatic: no nodes Psychiatric: normal affect Skin: no rash, normal turgor Dx/Plan (1) Acute systolic ACC/AHA stage C congestive heart failure Code(s): I50.21 - ACUTE SYSTOLIC (CONGESTIVE) HEART FAILURE Status: Acute (2) Chronic atrial fibrillation with rapid ventricular response Code(s): I48.2 - CHRONIC ATRIAL FIBRILLATION Status: Acute (3) Demand ischemia Code(s): I24.8 - OTHER FORMS OF ACUTE ISCHEMIC HEART DISEASE Status: Acute (4) 3-vessel CAD Status: Chronic (5) H/O prostate cancer Code(s): Z85.46 - PERSONAL HISTORY OF MALIGNANT NEOPLASM OF PROSTATE Status: Chronic (6) HTN (hypertension) Code(s): I10 - ESSENTIAL (PRIMARY) HYPERTENSION Status: Chronic Qualifiers: Comment: improved with diuresis (7) Hypothyroidism Code(s): E03.9 - HYPOTHYROIDISM, UNSPECIFIED Status: Chronic Comment: (8) Macrocytic anemia Code(s): D53.9 - NUTRITIONAL ANEMIA, UNSPECIFIED Status: Chronic - Plan cont current plan of care * continue to monitor on tele * continue cardizem drip for rate control * medication reviewed as below * symptomatic treatment * see my discharge summery * continue elliquis. * will consult cardiology if any alternative treatment required Review of Systems - Review of Systems Constitutional: weakness. negative: fever, chills, sweats, malaise, other ENT: negative: Ear Pain, Ear Discharge, Nose Pain, Nose Discharge, Nose Congestion, Mouth Pain, Mouth Swelling, Throat Pain, Throat Swelling, Other Respiratory: negative: Cough, Dry, Shortness of Breath, Hemoptysis, SOB with Excertion, Pleuritic Pain, Sputum, Wheezing Cardiovascular: negative: chest pain, palpitations, orthopnea, paroxysmal nocturnal dyspnea, edema, light headedness, other Gastrointestinal: negative: Nausea, Vomiting, Abdominal Pain, Diarrhea, Constipation, Melena, Hematochezia, Other Genitourinary: negative: Dysuria, Frequency, Incontinence, Hematuria, Retention , Other Musculoskeletal: negative: Neck Pain, Shoulder Pain, Arm Pain, Back Pain, Hand Pain, Leg Pain, Foot Pain, Other Skin: negative: Rash, Lesions, Roni, Bruising, Other - Medications/Allergies Allergies/Adverse Reactions: Allergies Allergy/AdvReac Type Severity Reaction Status Date / Time avocado Allergy Verified 09/06/18 17:04 lisinopril Allergy Verified 09/06/18 17:04 Sulfa (Sulfonamide Allergy Verified 09/06/18 17:04 Antibiotics) Medications: Current Medications Acetaminophen (Tylenol) 650 mg PO Q4H PRN PRN Reason: Headache/Fever/Mild Pain (1-3) Hydrocodone Bitart/Acetaminophen (Sharon 5/325) 1 tab PO Q4H PRN PRN Reason: Moderate Pain (4-6) Apixaban (Eliquis) 5 mg PO BID DAVE Last Admin: 12/03/18 09:13 Dose: 5 mg Artificial Tears (Tears Naturale) 2 drop EA EYE PRN PRN PRN Reason: Dry Eyes Bisacodyl (Dulcolax) 10 mg DC DAILYPRN PRN PRN Reason: Constipation Calcium Carbonate (Tums) 1,000 mg PO Q4H PRN PRN Reason: Heartburn or Indigestion Carvedilol (Coreg) 6.25 mg PO BID [facility] Last Admin: 12/03/18 09:13 Dose: 6.25 mg Cyanocobalamin (Vitamin B-12) 1,000 mcg PO DAILY [facility] Last Admin: 12/03/18 09:14 Dose: 1,000 mcg Famotidine (Pepcid) 20 mg PO QPM [facility] Folic Acid (Folvite) 1 mg PO DAILY [facility] Last Admin: 12/03/18 09:14 Dose: 1 mg Furosemide (Lasix) 40 mg PO DAILY-AC [facility] Last Admin: 12/03/18 09:13 Dose: 40 mg Guaifenesin (Robitussin Sf) 200 mg PO Q4H PRN PRN Reason: Cough Hydralazine HCl (Apresoline) 10 mg SLOW IVP Q4H PRN PRN Reason: SBP > 180 and HR < 70 Diltiazem HCl 125 mg/ Sodium (Chloride) 125 mls @ 5 mls/hr IVPB INF [facility] Levothyroxine Sodium (Synthroid) 50 mcg PO 0600 [facility] Last Admin: 12/03/18 03:34 Dose: 50 mcg Loperamide HCl (Imodium) 2 mg PO PRN PRN PRN Reason: Diarrhea/Loose Stools Loratadine (Claritin) 10 mg PO DAILYPRN PRN PRN Reason: Sinus Symptoms Ondansetron HCl (Zofran Odt) 4 mg PO Q6H PRN PRN Reason: Nausea/Vomiting Ondansetron HCl (Zofran) 4 mg IVP Q6H PRN PRN Reason: Nausea/Vomiting Potassium Chloride (Klor-Con 10) 10 meq PO DAILY [facility] Last Admin: 12/03/18 09:14 Dose: 10 meq Senna/Docusate Sodium (Senokot S) 2 tab PO BIDPRN PRN PRN Reason: Constipation Sodium Chloride ([place] Nasal [place] 0.65%) 0 ml EA NARE QIDPRN PRN PRN Reason: Nasal Congestion Throat Lozenges (Cepastat Lozenges) 1 kimberlee PO Q2H PRN PRN Reason: Sore Throat Zolpidem Tartrate (Ambien) 5 mg PO HSPRN PRN PRN Reason: Insomnia
--- NOTE | 2018-12-03 20:20 | CON ---
DATE OF CONSULTATION: 12/03/2018 REASON FOR CONSULTATION: Atrial fibrillation with RVR. SHRIMPING BOAT CAPTAIN: Marilyn Echols MD HISTORY OF PRESENT ILLNESS: Mr. Brown is a pleasant 88-year-old white gentleman, who comes to the hospital for not feeling well and palpitations. He had an episode similar to this back in June of this year. He was found to be in atrial fibrillation with RVR. He underwent MELANIE and cardioversion, felt much better afterwards. He has not been in atrial fibrillation since tolerating anticoagulation, not missing any of his doses according to him. He is on Eliquis 5 mg b.i.d. He came in today because for the last week he has noticed worsening shortness of breath and not feeling well, feeling lightheaded, which is the same way he felt before being diagnosed with atrial fibrillation in the past. Sure enough, he was evaluated in the ER and found to be in atrial fibrillation with RVR, started on diltiazem drip and Cardiology is consulted for this. PAST MEDICAL HISTORY: 1. Paroxysmal atrial fibrillation. 2. Hypertension. 3. Systolic heart failure, EF of 20% to 25%. 4. Hypothyroidism. 5. Prostate cancer in the past. SURGICAL HISTORY: 1. Appendectomy. 2. Prostate biopsy. 3. Radiation seed implant in the prostate. 4. Bilateral cataract surgery. 5. Right hip replacement. SOCIAL HISTORY: Lives in the [facility] at [facility]. No alcohol, tobacco, or drugs. FAMILY HISTORY: Noncontributory. OUTPATIENT MEDICATIONS: 1. Eliquis 5 mg b.i.d. 2. Imdur 60 mg a day. 3. Levothyroxine 50 mcg a day. 4. Lasix 20 mg a day. 5. Potassium chloride 10 mEq a day. ALLERGIES: LISINOPRIL AND SULFA DRUGS. REVIEW OF SYSTEMS: A 12-point review of systems was done and was all negative unless stated in the history of present illness. PHYSICAL EXAMINATION: VITAL SIGNS: Temperature 97.8, pulse 100, respiratory rate 18, saturating 94% on room air, and blood pressure 154/67. GENERAL: Awake, alert, oriented x3. No distress. HEENT: Normocephalic and atraumatic. NECK: Supple. LUNGS: Clear. CARDIOVASCULAR: Irregularly irregular. Heart rate in the 120s. ABDOMEN: Soft. Positive bowel sounds. EXTREMITIES: No edema. SKIN: Warm and dry. LABORATORY DATA: Laboratory work was reviewed. CBC was reviewed. Chemistries were reviewed. Normal electrolytes. Troponin is negative x3. ASSESSMENT/PLAN: 1. Atrial fibrillation with rapid ventricular response, very symptomatic. 2. Nonischemic cardiomyopathy, EF of 30% to 35%. 3. [id number] coronary artery disease on heart catheterization in June of this year. PLAN: We will restart amiodarone drip and we will change the diltiazem drip for an amiodarone drip. We will plan on doing a cardioversion tomorrow morning as he has been on Eliquis since June of this year and has not stopped the medication at all. We spoke about cardioversion. He agrees to proceed. He is ready to feel better. He states he does not like the way he has been feeling for the last week. Thank you for letting me to participate in the care of your patient. We will follow. Job ID: [id number]
[2018-12-03] MEDS: Famotidine 20 MG TAB PO SCH (21:34)
[2018-12-03] MEDS: Amiodarone 450 MG in Dextrose 5% in Water 250 ML IVPB SCH (21:43)
[2018-12-04] MEDS: Amiodarone 450 MG in Dextrose 5% in Water 250 ML IVPB SCH ×2 (04:18→22:07)
[2018-12-04] MEDS: Levothyroxine Sodium 50 MCG TAB PO SCH (06:25)
[2018-12-04] MEDS ORDERED: Lidocaine 2% PF 5 ML VIAL ONE (06:42)
[2018-12-04] MEDS ORDERED: PROPOFOL 0 ML ONE (06:42)
[2018-12-04] MEDS ORDERED: hydrALAZINE 20 MG/ML VIAL ONE (07:55)
[2018-12-04] MEDS: Furosemide 40 MG TAB PO SCH (09:23)
[2018-12-04] MEDS: Apixaban 5 MG TAB PO SCH ×2 (09:23→21:33)
[2018-12-04] MEDS: Folic Acid 1 MG TAB PO SCH (09:24)
[2018-12-04] MEDS: Carvedilol 6.25 MG TAB PO SCH ×2 (09:24→21:33)
[2018-12-04] MEDS: Potassium Chloride 10 MEQ TAB PO SCH (09:24)
[2018-12-04] MEDS: Cyanocobalamin (Vitamin B-12) 1,000 MCG TAB PO SCH (09:24)
[2018-12-04] MEDS: Amiodarone 200 MG TAB PO SCH ×2 (10:19→21:34)
--- NOTE | 2018-12-04 10:31 | PDOC.PN ---
- Subjective Encounter Start Date: 12/04/18 Encounter Start Time: 07:20 pt had cardioversion this morning, after that he was in NSR for short time and again reverted back to Afib, family bedside - Objective Resuscitation Status - Order Detail: 12/02/18 14:19 Resuscitation Status Routine Resuscitation Status: FULL: Full Resuscitation MAR Reviewed: Yes Vital Signs & Weight: Vital Signs (12 hours) Temp Pulse Resp BP BP Pulse Ox 12/04/18 09:24 141/101 H 12/04/18 09:20 97.7 F 102 H 20 149/101 H 94 L 12/04/18 04:00 97.6 F 113 H 20 135/88 93 L Weight Admit Weight 202 lb Weight 202 lb I&O: 12/03/18 12/04/18 12/05/18 06:59 06:59 06:59 Intake Total 1089.8 1991 Output Total 775 1280 Balance 314.8 711 Result Diagrams: 12/03/18 04:48 12/03/18 04:48 EKG Reviewed by me: Yes (afib) Phys Exam - Physical Examination Constitutional: NAD HEENT: PERRLA, moist MMs, sclera anicteric Neck: no JVD, supple Respiratory: no wheezing, no rales, no rhonchi Cardiovascular: no significant murmur, irregular Gastrointestinal: soft, non-tender, no distention Musculoskeletal: no edema, pulses present Neurological: non-focal, normal sensation Lymphatic: no nodes Psychiatric: normal affect, A&O x 3 Skin: no rash, normal turgor Dx/Plan (1) Acute systolic ACC/AHA stage C congestive heart failure Code(s): I50.21 - ACUTE SYSTOLIC (CONGESTIVE) HEART FAILURE Status: Acute Comment: now euvolemic, controlled (2) Chronic atrial fibrillation with rapid ventricular response Code(s): I48.2 - CHRONIC ATRIAL FIBRILLATION Status: Acute (3) Demand ischemia Code(s): I24.8 - OTHER FORMS OF ACUTE ISCHEMIC HEART DISEASE Status: Acute (4) 3-vessel CAD Status: Chronic (5) H/O prostate cancer Code(s): Z85.46 - PERSONAL HISTORY OF MALIGNANT NEOPLASM OF PROSTATE Status: Chronic (6) HTN (hypertension) Code(s): I10 - ESSENTIAL (PRIMARY) HYPERTENSION Status: Chronic Qualifiers: Comment: improved with diuresis (7) Hypothyroidism Code(s): E03.9 - HYPOTHYROIDISM, UNSPECIFIED Status: Chronic Comment: (8) Macrocytic anemia Code(s): D53.9 - NUTRITIONAL ANEMIA, UNSPECIFIED Status: Chronic - Plan cont current plan of care, plan discussed w/ family * currently on amiodaron drip * cardioversion was not successful * cardiology to decide about next step of treatment * medication reviewed as below * symptomatic treatment * updated plan to family and answered their questions. Review of Systems - Review of Systems ENT: negative: Ear Pain, Ear Discharge, Nose Pain, Nose Discharge, Nose Congestion, Mouth Pain, Mouth Swelling, Throat Pain, Throat Swelling, Other Respiratory: negative: Cough, Dry, Shortness of Breath, Hemoptysis, SOB with Excertion, Pleuritic Pain, Sputum, Wheezing Cardiovascular: negative: chest pain, palpitations, orthopnea, paroxysmal nocturnal dyspnea, edema, light headedness, other Gastrointestinal: negative: Nausea, Vomiting, Abdominal Pain, Diarrhea, Constipation, Melena, Hematochezia, Other Genitourinary: negative: Dysuria, Frequency, Incontinence, Hematuria, Retention , Other Musculoskeletal: negative: Neck Pain, Shoulder Pain, Arm Pain, Back Pain, Hand Pain, Leg Pain, Foot Pain, Other - Medications/Allergies Allergies/Adverse Reactions: Allergies Allergy/AdvReac Type Severity Reaction Status Date / Time avocado Allergy Verified 09/06/18 17:04 lisinopril Allergy Verified 09/06/18 17:04 Sulfa (Sulfonamide Allergy Verified 09/06/18 17:04 Antibiotics) Medications: Current Medications Acetaminophen (Tylenol) 650 mg PO Q4H PRN PRN Reason: Headache/Fever/Mild Pain (1-3) Hydrocodone Bitart/Acetaminophen ([place] 5/325) 1 tab PO Q4H PRN PRN Reason: Moderate Pain (4-6) Amiodarone HCl (Cordarone) 400 mg PO BID [facility] Last Admin: 12/04/18 10:19 Dose: Not Given Apixaban (Eliquis) 5 mg PO BID [facility] Last Admin: 12/04/18 09:23 Dose: 5 mg Artificial Tears (Tears Naturale) 2 drop EA EYE PRN PRN PRN Reason: Dry Eyes Bisacodyl (Dulcolax) 10 mg DC DAILYPRN PRN PRN Reason: Constipation Calcium Carbonate (Tums) 1,000 mg PO Q4H PRN PRN Reason: Heartburn or Indigestion Carvedilol (Coreg) 6.25 mg PO BID [facility] Last Admin: 12/04/18 09:24 Dose: 6.25 mg Cyanocobalamin (Vitamin B-12) 1,000 mcg PO DAILY [facility] Last Admin: 12/04/18 09:24 Dose: 1,000 mcg Famotidine (Pepcid) 20 mg PO QPM [facility] Last Admin: 12/03/18 21:34 Dose: 20 mg Folic Acid (Folvite) 1 mg PO DAILY [facility] Last Admin: 12/04/18 09:24 Dose: 1 mg Furosemide (Lasix) 40 mg PO DAILY-[facility] Last Admin: 12/04/18 09:23 Dose: 40 mg Guaifenesin (Robitussin Sf) 200 mg PO Q4H PRN PRN Reason: Cough Hydralazine HCl (Apresoline) 10 mg SLOW IVP Q4H PRN PRN Reason: SBP > 180 and HR < 70 Amiodarone HCl 450 mg/ (Dextrose/Water) 259 mls @ 0 mls/hr IVPB INF [facility]; Protocol Stop: 12/05/18 10:00 Last Admin: 12/04/18 04:18 Dose: 259 mls Levothyroxine Sodium (Synthroid) 50 mcg PO 0600 [facility] Last Admin: 12/04/18 06:25 Dose: 50 mcg Loperamide HCl (Imodium) 2 mg PO PRN PRN PRN Reason: Diarrhea/Loose Stools Loratadine (Claritin) 10 mg PO DAILYPRN PRN PRN Reason: Sinus Symptoms Ondansetron HCl (Zofran Odt) 4 mg PO Q6H PRN PRN Reason: Nausea/Vomiting Ondansetron HCl (Zofran) 4 mg IVP Q6H PRN PRN Reason: Nausea/Vomiting Potassium Chloride (Klor-Con 10) 10 meq PO DAILY [facility] Last Admin: 12/04/18 09:24 Dose: 10 meq Senna/Docusate Sodium (Senokot S) 2 tab PO BIDPRN PRN PRN Reason: Constipation Sodium Chloride ([place]ark Nasal [place] 0.65%) 0 ml EA NARE QIDPRN PRN PRN Reason: Nasal Congestion Sodium Chloride (Flush - Normal Saline) 10 ml IVF Q12HR [facility] Last Admin: 12/04/18 09:25 Dose: Not Given Sodium Chloride (Flush - Normal Saline) 10 ml IVF PRN PRN PRN Reason: Saline Flush Throat Lozenges (Cepastat Lozenges) 1 kimberlee PO Q2H PRN PRN Reason: Sore Throat Zolpidem Tartrate (Ambien) 5 mg PO HSPRN PRN PRN Reason: Insomnia
--- NOTE | 2018-12-04 15:18 | PQF ---
DATE: 12-04-18 ATTN: DR. SARAH WAY Please exercise your independent, professional judgment in responding to the clarification form. Clinical indicators are provided on the bottom of this form for your review Please check appropriate box(s): [ ] Acute Renal Failure (ARF) / Acute Kidney Injury (SCOTT) [ x ] Insignificant Lab Values [ ] Other diagnosis [ ] Unable to determine In addition, please specify: Present on Admission (POA): [ x ] Yes [ ] No [ ] Unable to determine National Kidney Foundation Guidelines for CKD Staging Stage I Kidney damage with normal or increased GFR GFR > 90 Stage II Kidney damage with mildly decreased GFR GFR 60-89 Stage III Kidney damage with moderately decreased GFR GFR 30-59 Stage IV Kidney damage with severely decreased GFR GFR 16 -29 Stage V Kidney failure GFR<15 ESRD End Stage Renal Disease On dialysis Acute Renal Failure/Acute Kidney Failure defined as: Increases in SCr by (>) 0.3 mg/dl within 48 hours OR- Increases in SCr by (>) 1.5 times baseline, known or presumed to have occurred within the prior 7 days OR- Urine volume < 0.5 ml/kg/hour for 6 hours (KDIGO supplement 2012 for RIFLE/BAO criteria) For continuity of documentation, please document condition throughout progress notes and discharge summary. Thank You. CLINICAL INDICATORS - SIGNS / SYMPTOMS / LABS: GFR: 12-02-18: 45 12-03-18: 58 CREATININE: 12-02-18: 1.48 12-03-18: 1.18 BUN: 12-02-18: 24 12-03-18: 20 H&P: GENERALIZED WEAKNESS, FATIGUE, DIZZINESS RISK FACTORS: H&P: HOME MED: ISOSORBIDE DINITRATE, LASIX TREATMENTS: ER: NS IVF (This form is maintained as a part of the permanent medical record) 2014 [facility] All Rights Reserved [email or web address] Office: [phone] [facility] CENTERLizz
--- NOTE | 2018-12-04 16:32 | CON ---
DATE OF CONSULTATION: 12/04/2018 PRIMARY SPECIAL EDUCATION RESOURCE TEACHER: Marilyn Echols MD. HISTORY OF PRESENT ILLNESS: I am seeing Mr. Brown at our [facility] Telemetry Floor as an Electrophysiology workforce management consultant for the following problems: 1. Chronic recurrent atrial fibrillation, now persisting. a. History of atrial fibrillation episodes in June. b. Amiodarone loading at that time after switching from Tambocor, which was subsequently stopped in August 2018. c. Now, he is here with recurrent atrial fibrillation with rapid rates. 2. Chronic systolic congestive heart failure. Reduced LVEF at 20% to 25% on echo on July 09, 2018, with improvement of LVEF seen at 40% to 45% range as outpatient through Dr. Ortiz's office subsequently. 3. History of falls. 4. History of hypothyroidism, on replacement. 5. History of prostate cancer in the past. ALLERGIES: AVOCADO, LISINOPRIL, AND SULFA. MEDICATIONS: At home included: 1. Eliquis 5 mg twice a day. 2. Imdur. 3. Levothyroxine. 4. Lasix. 5. Potassium chloride. SUBJECTIVE: Mr. Brown was admitted with progressive shortness of breath, fluid overload, palpitations with heart rates also noted to be higher by visiting nurse. He had some lightheadedness, did not pass out. No stroke-like symptoms or neurological deficits are noted. He has no bleeding issues, continues on Eliquis. No angina-like discomfort. REVIEW OF SYSTEMS: Rest of 12-point review of system otherwise unremarkable. PAST HISTORY: As above. This gentleman had history of severe reduced LVEF in the setting of atrial fibrillation with RVR back in June at which point he was cardioverted and placed on amiodarone taper. He did well, but in August due to an orthostatic appearing fall, his medications were discontinued including amiodarone as well. SOCIAL HISTORY: The patient is retired. Denies smoking, EtOH, or drug abuse. Lives in [facility] at [facility]. FAMILY HISTORY: Not contributory. OBJECTIVE DATA: VITAL SIGNS: Blood pressure is 123/83, heart rate 105, respirations 16, and temperature 98.9 degrees Fahrenheit. GENERAL: Alert and oriented man, in no apparent distress. NECK: Supple. Jugular veins not distended. CHEST: Coarse with crackles. HEART: Sounds are irregularly irregular. S1 is variable, 1/6 holosystolic murmur is heard. PMI is nonpalpable. ABDOMEN: Benign. Bowel sounds positive. EXTREMITIES: Lower extremities without edema, clubbing, or cyanosis. Pulses are adequate. NEUROLOGIC: The patient is nonfocal. MUSCULOSKELETAL: Without joint swelling or deformity. SKIN: Without rash. DATABASE: EKG is reviewed revealing atrial fibrillation with rapid rates initially. Now, telemetry strips reveal that improvement of rates are seen. The QRS is narrow. Laboratory Data: White cell count is 5.4, hemoglobin 11.7, platelet count is 177. Sodium 141, potassium 3.7, BUN is 20, creatinine 1.18. ASSESSMENT AND PLAN: Mr. Brown is an 88-year-old man with history of now recurrent atrial fibrillation, who was transiently suppressed with amiodarone in June which was though stopped in August, and now he has recurrence, clearly doing poorly while in atrial fibrillation with recurrent congestive heart failure symptoms. Also, he had a reduced LVEF in June in the severe range, somewhat improved with additional rhythm and rate control to 40% to 45%. My plan is at this point: 1. Regarding the atrial fibrillation, I think it is reasonable to reconsider amiodarone. IV amiodarone is already transfusing. After adequate fluid level is achieved with diuresis and sufficient amiodarone for a day or two duration has been infusing, we could consider a cardioversion in the near future. He has been well anticoagulated in the interim. 2. Congestive heart failure with cardiomyopathy. I suspect partially this could be related to rate-related LV dysfunction and expect to improve after rhythm control achieving normal rates and AV synchrony. 3. Elevated [id number] score with congestive heart failure, hypertension. 4. He will need continued anticoagulation. 5. Congestive heart failure, on diuretics. Continue optimizing medical therapy as well. Recheck LVEF. If reduced after rate and rhythm control is achieved, he could be considered for ICD implant, also Bi-V pacing or ICD with planned AV jazzy ablation a potential possibility if amiodarone failed or not desired in the future. He is somewhat a poor candidate for ablation therapy. These issues were discussed with the patient and his family, will follow up with you. Thank you again for allowing me to participate in the care of this patient. Job ID: [id number] [facility]
--- NOTE | 2018-12-04 17:12 | EKG ---
Test Reason : POST CARDIOVERSION Blood Pressure : / mmHG Vent. Rate : 095 BPM Atrial Rate : 105 BPM P-R Int : 000 ms QRS Dur : 106 ms QT Int : 412 ms P-R-T Axes : 000 104 070 degrees QTc Int : 517 ms Atrial fibrillation Rightward axis Poor anterior R wave progression Prolonged QT Abnormal ECG When compared with ECG of 02-DEC-2018 10:17, (Unconfirmed) No significant change was found Confirmed by DR. Leona LOVE (3) on 12/04/2018 5:12:04 PM Referred By: PILAR Confirmed By:DR. Leona LOVE
--- NOTE | 2018-12-04 18:53 | OP ---
DATE OF PROCEDURE: 12/04/18 PROCEDURE DIAGNOSIS: Atrial fibrillation with RVR. PROCEDURE: Direct current cardioversion. SUMMARY: The anesthesiology department provided with sedation for the patient. Please see their notes for deta ils. After anesthesia was achieved, one single synchronized shock was delivered successfully converting hi m back into sinus rhythm. RECOMMENDATIONS: 1. Continued Amiodarone drip today, then switch to PO tomorrow morning. First does will be this evening. 2. May be discharge tomorrow if he remains stable. 3. Continue Eliquis --------.
[2018-12-04] MEDS: Famotidine 20 MG TAB PO SCH (21:34)
[2018-12-05] MEDS: Levothyroxine Sodium 50 MCG TAB PO SCH (05:50)
[2018-12-05] MEDS: Furosemide 40 MG TAB PO SCH (08:31)
[2018-12-05] MEDS: Carvedilol 6.25 MG TAB PO SCH ×2 (08:32→21:01)
[2018-12-05] MEDS: Cyanocobalamin (Vitamin B-12) 1,000 MCG TAB PO SCH (08:32)
[2018-12-05] MEDS: Apixaban 5 MG TAB PO SCH ×2 (08:32→21:02)
[2018-12-05] MEDS: Folic Acid 1 MG TAB PO SCH (08:32)
[2018-12-05] MEDS: Amiodarone 200 MG TAB PO SCH ×2 (08:32→21:01)
[2018-12-05] MEDS: Potassium Chloride 10 MEQ TAB PO SCH (08:36)
--- NOTE | 2018-12-05 14:55 | PRG ---
DATE OF SERVICE: 12/05/2018 SUBJECTIVE: An 88-year-old male with chronic atrial fibrillation, hypertension , and congestive heart failure, presented to the hospital with generalized weakness along with palpitations and shortness of breath. His workup was consistent with atrial fibrillation with rapid ventricular response. He was started on Cardizem drip. He was monitored on telemetry unit. He was later started on amiodarone drip, and Cardizem drip was discontinued. He underwent cardioversion yesterday. He denies any chest discomfort at this time. He is somewhat somnolent since the cardioversion. He denies any chest pain, shortness of breath, or palpitations at this time. No new focal deficit reported. OBJECTIVE: VITAL SIGNS: Temperature 97.5, respirations of 17, blood pressure of 130/79, pulse rate of 70, and O2 saturation 97% on 2 L nasal cannula. GENERAL: An 88-year-old male, in no apparent distress. Somnolent. LUNGS: Clear to auscultation bilaterally with scattered rales at bases. No wheezing or rhonchi. No accessory muscle use. HEART: S1 and S2 present, regular rate and rhythm. A 2/6 systolic murmur over the mitral area. ABDOMEN: Soft and nontender. Bowel sounds present. EXTREMITIES: No significant edema or calf tenderness. NEUROLOGY: Grossly nonfocal. PSYCHIATRY: Somnolent, however, alert, awake, and oriented x3. Intake of 726, output 1585, weight of 196 pounds. Current medications were reviewed. The patient is on amiodarone drip along with Eliquis, carvedilol, Lasix, levothyroxine, and oral potassium. Telemetry monitoring by my review showed sinus rhythm. Chest x-ray by my review on admission was consistent with mild pulmonary vascular congestion. IMPRESSION: 1. Atrial fibrillation with rapid ventricular response, on amiodarone loading. 2. Acute on chronic systolic heart failure, ejection fraction 20% to 25% in June of 2018. Repeat echocardiogram showed ejection fraction of 40% to 45%. 3. Chronic anticoagulation. 4. History of recurrent falls. 5. Hypothyroidism. 6. History of prostate cancer. 7. Macrocytic anemia with low normal vitamin B12. 8. Acute kidney injury on chronic kidney disease, stage 3, probably secondary to cardiorenal syndrome. 9. History of orthostatic hypotension. PLAN: Amiodarone drip will be discontinued today. He will be started on oral amiodarone loading. We will continue carvedilol along with anticoagulation. He understands the risk associated with anticoagulation. Continue vitamin B12 supplementation. We will continue levothyroxine and potassium chloride. We will add Physical Therapy, Occupational Therapy evaluation. We will resume [facility] at the assisted living facility. The family is requesting the visits to be increased to 2 or 3 times a week. We will check orthostatic vitals in a.m. We will check labs in a.m. Plan was discussed with the patient in detail. They stated understanding. Job ID: [id number] [facility]
--- NOTE | 2018-12-05 18:50 | PDOC.CTH ---
Cardiology Progress Note - Subjective He was cardioverted yesterday and 1 hour after he was back in sinus he converted back to afib. He eventually converted back to sinus on his own. - Objective Vital Signs Temp Pulse Resp BP BP Pulse Ox 12/05/18 16:00 98.3 F 68 16 143/86 H 97 12/05/18 11:10 97.5 F L 70 17 130/79 97 12/05/18 08:28 97.4 F L 72 18 150/73 H 95 Admit Weight 202 lb Weight 196 lb 12/04/18 12/05/18 12/06/18 06:59 06:59 06:59 Intake Total 1990 726 480 Output Total 1280 1585 600 Balance 711 -859 -120 - Physical Examination General/Neuro: alert & oriented x3, NAD Neck: no JVD present Lungs: CTA, unlabored respirations Heart: RRR Abdomen: NT/ND Extremities: + edema B (trace) - Telemetry Telemetry Rhythm: NSR->Afib->NSR - Labs Result Diagrams: 12/03/18 04:48 12/03/18 04:48 Troponin/CKMB CK-MB (CK-2) 4.1 ng/mL (0-6.6) 12/02/18 09:45 Troponin I 0.011 ng/mL (< 0.028) 12/02/18 14:53 - Assessment/Plan 1. Paroxysmal afib 2. Non ischemic CM. 3. HTN 4. LVEF at 30-35%, likely tachycardia induced as it improved in the past with rhythm control. 5. Mild to moderate CAD. PLAN: - Remains in sinus. - Continue amiodarone load at 400 mg BID for 7 days then 200 mg dialy. - May discharge home any time from cardiac perspective. - Follow up with Dr. Echols/Carrie in 4 weeks.
[2018-12-05] MEDS: Famotidine 20 MG TAB PO SCH (21:02)
[2018-12-05] MEDS: Senokot S 8.6-50 MG TAB PO SCH (21:02)
[2018-12-06] MEDS: Levothyroxine Sodium 50 MCG TAB PO SCH (05:03)
[2018-12-06 05:39] LABS: #Eosinphils 0.1 thou/uL (0.0-0.7); #Lymphocytes 1.8 thou/uL (1.20-3.40); #Monocytes 0.7 thou/uL (0.11-0.59); #Neutrophils 4.2 thou/uL (1.40-6.50); %Basophils 0.6 % (0.0-1.0); %Eosinophils 1.9 % (0.0-10.0); %Lymphocytes 25.8 % (21.0-51.0); %Monocytes 10.2 % (0.0-10.0); %Neutrophils 61.5 % (42.0-75.0); Mean Corpuscular HGB CONC 32.7 g/dL (32.0-36.0); Mean Corpuscular Hemoglobin 35.3 pg (27.0-31.0); Mean Platelet Volume 9.1 fL (7.4-10.4); Platelet Count 160 thou/uL (130-400); RBC Distribution Width 13.2 % (11.5-14.5); Red Blood Cell (RBC) Count 3.68 mill/uL (4.70-6.10); White Blood Cell (WBC) Count 6.8 thou/uL (4.8-10.8)
[2018-12-06 05:54] LABS: Albumin 3.6 g/dL (3.4-4.8); Anion Gap 14 mmol/L (10-20); BUN (Urea Nitrogen) 29 mg/dL (8.4-25.7); BUN/Creatinine Ratio 18.59; Calc. Creatinine Clearance 42 mL/min (70-130); Calcium 9.1 mg/dL (7.8-10.44); Carbon Dioxide 20 mmol/L (23-31); Chloride 107 mmol/L (98-107); Estimated GFR-MDRD 42; Glucose 108 mg/dL (83-110); Magnesium 1.9 mg/dL (1.6-2.6); Phosphorus 3.7 mg/dL (2.3-4.7); Potassium 3.8 mmol/L (3.5-5.1); Sodium 137 mmol/L (136-145)
[2018-12-06] MEDS: Cyanocobalamin (Vitamin B-12) 1,000 MCG TAB PO SCH (08:04)
[2018-12-06] MEDS: Apixaban 5 MG TAB PO SCH ×2 (08:05→20:32)
[2018-12-06] MEDS: Carvedilol 6.25 MG TAB PO SCH ×2 (08:05→20:32)
[2018-12-06] MEDS: Amiodarone 200 MG TAB PO SCH ×2 (08:05→20:32)
[2018-12-06] MEDS: Potassium Chloride 10 MEQ TAB PO SCH (08:05)
[2018-12-06] MEDS: Senokot S 8.6-50 MG TAB PO SCH ×2 (08:05→20:32)
[2018-12-06] MEDS: Furosemide 40 MG TAB PO SCH (08:05)
[2018-12-06] MEDS: Folic Acid 1 MG TAB PO SCH (08:06)
--- NOTE | 2018-12-06 08:47 | PRG ---
DATE OF SERVICE: 12/05/2018 SUBJECTIVE: Mr. Brown seems to be doing better today, seems to lay flat. His rhythm is normalized. He has no chest pain. No fever, chills, or cough. No PND or orthopnea. OBJECTIVE: VITAL SIGNS: Blood pressure 130/79, heart rate 70, respiratory rate 17, temperature 97.5 degrees Fahrenheit. GENERAL: Alert and oriented man, in no apparent distress. NECK: Supple. Jugular veins not distended. CHEST: Coarse without crackles. HEART: Sounds are regular to rate and rhythm. No murmur or gallop. ABDOMEN: Benign. Bowel sounds positive. EXTREMITIES: Lower extremities without edema, clubbing, or cyanosis. DIAGNOSTIC DATA: Telemetry strips reviewed, revealing atrial flutter/ fibrillation, which converted back to sinus rhythm this afternoon with rates about 70 beats per minute. LABORATORY DATA: White cell count is 5.4, hemoglobin 11.7, platelet count is 177. Sodium 141, potassium 3.7, BUN 20, creatinine 1.18. ASSESSMENT AND PLAN: Mr. Brown is a pleasant, 88-year-old man, with history of atrial fibrillation in the past, which is suppressed well from June to August when it was discontinued. He also had significant cardiomyopathy with severely reduced LVEF, which though again improved with maintenance of normal rhythm on an outpatient echocardiogram. Now, he is back with an episode of atrial fibrillation, rapid rate and development of CHF like symptoms. He required diuresis, and IV amiodarone was started to control his rates. Eventually, he did spontaneously converted back to sinus rhythm. He is continued on apixaban for anticoagulation. Currently, he is feeling better and his heart failure exacerbation is resolved. My plan will be at this point; 1. Consider further amiodarone p.o. taper eventually down to 200 mg a day dose. 2. Should recurrent atrial fibrillation or flutter recur, pacing and AV jazzy ablation are potential options. Left atrial ablation procedure is consideration but somewhat more risk and could even involve . 3. Anticoagulation to continue. 4. Cardiomyopathy. I am expecting his LVEF again improved with maintenance of sinus rhythm. 5. Chronic amiodarone use. We discussed with the patient and family about risk of liver, pulmonary, thyroid side effects. Job ID: [id number] [facility]
--- NOTE | 2018-12-06 09:39 | PRG ---
DATE OF SERVICE: 12/06/2018 SUBJECTIVE: Mr. Brown seems to be doing well. Less dyspneic and no palpitations. OBJECTIVE: VITAL SIGNS: Blood pressure is 154/84, heart rate is 76, respiratory rate is 18, temperature is 98.2 degrees Fahrenheit. GENERAL: Alert and oriented man, in no apparent distress. NECK: Supple. Jugular veins do not appear distended. CHEST: Coarse, but no crackles or crepitations. HEART: Sounds are regular to rate and rhythm. No murmur or gallop. ABDOMEN: Benign. Bowel sounds are positive. EXTREMITIES: Lower extremity without edema, clubbing, or cyanosis. LABORATORY DATABASE: Telemetry strips revealed continued sinus rhythm, hence cardioversion yesterday from atrial fibrillation while on p.o. amiodarone. Hemoglobin 13, platelet count 160. BUN 29, creatinine 1.56, worsens from 3 days ago 20 and 1.18. ASSESSMENT AND PLAN: Mr. 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 He has been placed on amiodarone and cardioverted, but that was stopped in August and now he is back again in atrial fibrillation. responded well for reloading with amiodarone. He spontaneously converted back to sinus rhythm. His heart failure symptoms also improved with diuresis. Plan is to continue amiodarone taper down to 200 mg a day dose eventually. Monitor for any potential side effects including pulmonary, liver, thyroid, neurological issues. He and his family understands. We will have to see him back in 6 to 8 weeks for discussion of further options. At this point, optimization of his heart failure also paramount. Job ID: [id number]
[2018-12-06 11:21] VITALS: BMI 28.1
[2018-12-06] MEDS ORDERED: Nitroglycerin 0.4 MG TAB (25 Tab Bottle) ONE (12:11)
[2018-12-06] MEDS ORDERED: Nitroglycerin 0.4 MG TAB (25 Tab Bottle) SL PRN (12:43)
[2018-12-06 12:57] LABS: #Eosinphils 0.1 thou/uL (0.0-0.7); #Lymphocytes 1.5 thou/uL (1.20-3.40); #Monocytes 0.7 thou/uL (0.11-0.59); #Neutrophils 4.3 thou/uL (1.40-6.50); %Eosinophils 1.2 % (0.0-10.0); %Lymphocytes 22.3 % (21.0-51.0); %Monocytes 10.7 % (0.0-10.0); %Neutrophils 65.8 % (42.0-75.0); Hemoglobin 12.4 g/dL (14.0-18.0); Mean Corpuscular HGB CONC 33.4 g/dL (32.0-36.0); Mean Corpuscular Hemoglobin 35.6 pg (27.0-31.0); Mean Platelet Volume 8.8 fL (7.4-10.4); Platelet Count 161 thou/uL (130-400); RBC Distribution Width 13.3 % (11.5-14.5); Red Blood Cell (RBC) Count 3.47 mill/uL (4.70-6.10); White Blood Cell (WBC) Count 6.5 thou/uL (4.8-10.8)
[2018-12-06] MEDS ORDERED: Aspirin 81 mg Enteric Coated Tablet PO SCH (15:45)
--- NOTE | 2018-12-06 17:01 | EKG ---
Test Reason : CHEST PRESSURE W/SOB Blood Pressure : / mmHG Vent. Rate : 064 BPM Atrial Rate : 064 BPM P-R Int : 268 ms QRS Dur : 106 ms QT Int : 508 ms P-R-T Axes : 074 096 105 degrees QTc Int : 524 ms Sinus rhythm with 1st degree A-V block Rightward axis Possible Anterior infarct , age undetermined Prolonged QT Abnormal ECG When compared with ECG of 04-DEC-2018 08:20, Sinus rhythm has replaced Atrial fibrillation Vent. rate has decreased BY [address] Leona LOVE (3) on 12/06/2018 5:00:39 PM Referred By: PILAR Confirmed By:DR. Leona LOVE
--- NOTE | 2018-12-06 18:59 | PDOC.CTH ---
Cardiology Progress Note - Subjective He had an episode of epigastric tightness and fullness. It improved with SL nitro. ECG was unremarkable. Remains in sinus. - Objective Vital Signs Temp Pulse Pulse Pulse Resp BP BP 12/06/18 16:25 98.3 F 65 18 12/06/18 12:27 97.8 F 62 20 12/06/18 09:42 67 67 109/61 12/06/18 08:05 139/84 12/06/18 08:02 98.2 F 76 18 12/06/18 07:30 BP BP BP Pulse Ox 12/06/18 16:25 133/99 H 94 L 12/06/18 12:27 138/78 94 L 12/06/18 09:42 139/76 12/06/18 08:05 12/06/18 08:02 154/84 H 95 12/06/18 07:30 94 L Admit Weight 202 lb Weight 196 lb 12/05/18 12/06/18 12/07/18 06:59 06:59 06:59 Intake Total 726 730 822 Output Total 3928 247 2659 Balance -754 -220 -258 - Physical Examination General/Neuro: alert & oriented x3, NAD Neck: no JVD present Lungs: CTA, unlabored respirations Heart: RRR Abdomen: NT/ND Extremities: other: (no edema) - Telemetry Telemetry Rhythm: NSR - Labs Result Diagrams: 12/06/18 12:45 12/06/18 05:27 Troponin/CKMB CK-MB (CK-2) 4.1 ng/mL (0-6.6) 12/02/18 09:45 Troponin I Less than 0.010 ng/mL (< 0.028) 12/06/18 15:50 - Assessment/Plan 1. Paroxysmal afib, s/p DCCV in sinus now. 2. Non ischemic CM. 3. HTN 4. LVEF at 30-35%, likely tachycardia induced as it improved in the past with rhythm control. 5. Mild to moderate CAD. PLAN: - Remains in sinus. - Continue amiodarone load at 400 mg BID for 6 days then 200 mg dialy. - Watch overnight and if mn further issues may discharge in the morning. - Follow up with Dr. Echols/Carrie in 4 weeks.
[2018-12-06] MEDS: Famotidine 20 MG TAB PO SCH (20:34)
--- NOTE | 2018-12-06 23:07 | PRG ---
DATE OF SERVICE: 12/06/2018 SUBJECTIVE: An 88-year-old male with chronic atrial fibrillation, congestive heart failure, and hypertension, presented to the hospital with atrial fibrillation with rapid ventricular response. He was started on Cardizem drip followed by amiodarone drip. He underwent cardioversion. He had an episode of epigastric tightness earlier today. This improved with sublingual nitroglycerin. He denies any diaphoresis, nausea, or radiation. REVIEW OF SYSTEMS: No fever, chills, cough, shortness of breath, or wheezing reported. SUBJECTIVE: VITAL SIGNS: Temperature 98.3, pulse 65, respirations of 18, blood pressure 138/78, and O2 saturation 94% on 2 L nasal cannula. GENERAL: An 88-year-old male, in no apparent distress. Denies any chest discomfort at this time. LUNGS: Showed diminished air entry at bilateral bases. HEART: S1 and S2 present. Regular. No rubs or gallops. ABDOMEN: Soft. Bowel sounds present. EXTREMITIES: No edema or calf tenderness. NEUROLOGIC: Grossly nonfocal. LABORATORY FINDINGS: Troponin was negative. BNP was 942. BUN 29 and creatinine 1.56. Telemetry monitoring by my review showed sinus rhythm. CURRENT MEDICATIONS: Reviewed. The patient is on; 1. Eliquis. 2. Carvedilol. 3. Lasix. 4. Levothyroxine. 5. Potassium chloride. IMPRESSION: 1. Atrial fibrillation with rapid ventricular response. The patient is currently on oral amiodarone loading. 2. Episode of chest tightness with negative troponin. The pain improved with sublingual nitroglycerin. His last cardiac cath was in June of 2018. 3. Chronic systolic heart failure, ejection fraction 20% to 25% in the past. Repeat echocardiogram showed ejection fraction of 40% to 45%. No ACEI/ARB/Aldactone due to SCOTT/CKD. 4. Chronic anticoagulation. 5. History of recurrent falls. The patient understands the risk associated with anticoagulation. 6. Hypothyroidism. 7. History of prostate cancer. 8. Acute kidney injury on chronic kidney disease stage 3 on admission secondary to cardiorenal syndrome. 9. History of prostate cancer. 10. Vitamin B12 deficiency. 11. Macrocytic anemia. 12. History of orthostatic hypotension. PLAN: Serial troponins will be walked in. His orthostatic vitals were negative. We will evaluate for home O2. The patient will be monitored overnight per Cardiology recommendation. We will continue current home medications. The patient is currently with [facility] for fpc. Low-dose aspirin has been added. We will continue to monitor. Job ID: [id number] MTDD
[2018-12-07 05:25] LABS: Hemoglobin 12.9 g/dL (14.0-18.0); Platelet Count 160 thou/uL (130-400)
[2018-12-07] MEDS: Levothyroxine Sodium 50 MCG TAB PO SCH (05:31)
[2018-12-07 06:00] LABS: Anion Gap 14 mmol/L (10-20); BUN (Urea Nitrogen) 30 mg/dL (8.4-25.7); Calc. Creatinine Clearance 45 mL/min (70-130); Calcium 8.9 mg/dL (7.8-10.44); Carbon Dioxide 21 mmol/L (23-31); Chloride 106 mmol/L (98-107); Estimated GFR-MDRD 46; Glucose 98 mg/dL (83-110); Magnesium 1.9 mg/dL (1.6-2.6); Potassium 3.7 mmol/L (3.5-5.1); Sodium 137 mmol/L (136-145)
[2018-12-07 07:59] VITALS: TEMP 97.8
[2018-12-07] MEDS: Senokot S 8.6-50 MG TAB PO SCH (08:12)
[2018-12-07] MEDS: Folic Acid 1 MG TAB PO SCH (08:12)
[2018-12-07] MEDS: Apixaban 5 MG TAB PO SCH (08:12)
[2018-12-07] MEDS: Furosemide 40 MG TAB PO SCH (08:12)
[2018-12-07] MEDS: Amiodarone 200 MG TAB PO SCH (08:12)
[2018-12-07] MEDS: Potassium Chloride 10 MEQ TAB PO SCH (08:13)
[2018-12-07] MEDS: Cyanocobalamin (Vitamin B-12) 1,000 MCG TAB PO SCH (08:13)
[2018-12-07] MEDS: Carvedilol 6.25 MG TAB PO SCH (08:13)
[2018-12-07] MEDS ORDERED: Aspirin 81 mg Enteric Coated Tablet PO SCH (09:00)
[2018-12-07 11:36] VITALS: BP 150/85
--- NOTE | 2018-12-08 08:54 | DIS ---
DATE OF ADMISSION: 12/02/2018 DATE OF DISCHARGE: 12/07/2018 DISCHARGE DISPOSITION: 1. Assisted living facility. 2. Home health care through [facility] will be resumed. 3. The patient was advised to follow up with Dr. Benavides in 1 week. The patient was advised to follow up with Cardiology, Dr. Echols and Electrophysiology, Dr. Van as scheduled. The patient was seen and examined on the day of discharge. Denies any new complaints. DISCHARGE MEDICATIONS: 1. Eliquis 5 mg b.i.d. 2. Levothyroxine 50 mcg daily. 3. Potassium chloride 10 mEq daily. 4. Amiodarone 400 mg twice a day for next 6 days, then 200 mg daily. 5. Aspirin 81 mg daily. 6. Carvedilol 6.25 mg b.i.d. 7. Vitamin B12 1000 mcg daily. 8. Folic acid 1 mg daily. 9. Lasix 40 mg daily. INPATIENT CONSULTANTS: Cardiology, Dr. Saldivar; Electrophysiology, Dr. Van. BRIEF HOSPITAL COURSE: The patient is an 88-year-old male with chronic atrial fibrillation, congestive heart failure, and hypertension, presented to the hospital on December 02, 2018, with dizziness and palpitations, with generalized weakness and mild shortness of breath. His workup was consistent with atrial fibrillation with rapid ventricular response. He was initially started on Cardizem drip that was changed to amiodarone. He underwent cardioversion by Dr. Saldivar. He is currently on amiodarone loading. He has been cleared by Cardiology for discharge. He had an episode of chest pain the day prior to discharge. However, his troponins were negative. He was monitored overnight. He has been cleared by Cardiology for discharge. FINAL DIAGNOSES: 1. Generalized weakness, dizziness with lightheadedness secondary to atrial fibrillation with rapid ventricular response. The patient converted to sinus rhythm after cardioversion. He is currently on amiodarone loading. He will continue Eliquis. 2. Episode of chest discomfort the day prior to discharge. Troponins were negative. Cardiology is okay with the patient leaving. He had a last cardiac catheterization in June 2018. 3. Chronic systolic heart failure, ejection fraction 20% to 25% in the past. Repeat echocardiogram showed ejection fraction of 40% to 45%. He is currently not on ANGUS inhibitor, ARB, Aldactone due to chronic kidney disease. 4. History of recurrent falls. The patient understands the risks associated with anticoagulation. 5. Hypothyroidism. 6. Acute kidney injury on chronic kidney disease stage 3 on admission secondary to cardiorenal syndrome. 7. Prostate cancer. 8. Vitamin B12 deficiency. 9. History of orthostatic hypotension. The home health care is advised to monitor his orthostatic hypotension. 10. History of vitamin B12 deficiency. PLAN: Plan was discussed with the patient in detail, he stated understanding. Fall precaution was emphasized. He was counseled on congestive heart failure as well as fluid restriction. TIME SPENT WITH PATIENT: Total time coordinating the discharge of this patient was 35 minutes. Job ID: [id number]
--- NOTE | 2018-12-08 17:00 | EKG ---
Test Reason : Blood Pressure : / mmHG Vent. Rate : 126 BPM Atrial Rate : 105 BPM P-R Int : 000 ms QRS Dur : 106 ms QT Int : 312 ms P-R-T Axes : 000 089 077 degrees QTc Int : 451 ms Atrial fibrillation with rapid ventricular response Confirmed by JOSUE PIÑA ([id number]), associate entertainment editor NATHALIA SALMERON ([id number]) on 12/08/2018 4:59:33 PM Referred By: Confirmed By:JOSUE PIÑA
== END 2018-12-07 13:57 | DRG 309 ==
LOC: ERS 09:28 → ERHOLD 12:35 → 2NO 14:37
PROVIDERS: ADMIT Internal Medicine; ATTEND Internal Medicine
PROC: 5A2204Z Restoration of Cardiac Rhythm, Single (ICD-10-PCS; principal; 2018-12-04)
DX: I48.0 Paroxysmal atrial fibrillation (principal); I50.22 Chronic systolic (congestive) heart failure; I24.8 Other forms of acute ischemic heart disease; I42.8 Other cardiomyopathies; E03.9 Hypothyroidism, unspecified; Z96.641 Presence of right artificial hip joint; D53.9 Nutritional anemia, unspecified; I25.10 Atherosclerotic heart disease of native coronary artery without angina pectoris; I11.0 Hypertensive heart disease with heart failure; R29.6 Repeated falls; Z85.46 Personal history of malignant neoplasm of prostate; Z92.3 Personal history of irradiation; Z90.49 Acquired absence of other specified parts of digestive tract; Z98.41 Cataract extraction status, right eye; Z98.42 Cataract extraction status, left eye; Z88.2 Allergy status to sulfonamides; Z88.8 Allergy status to other drugs, medicaments and biological substances; Z79.01 Long term (current) use of anticoagulants
CPT/HCPCS: 36415; 71045; 80048; 80053; 80069; 82553; 83735; 83880; 84443; 84484; 85014; 85018; 85025; 85049; 92960; 93005; 93010; 96361; 96365; 96376; J0282; J0360; J2001; J2704; J3490; J7070

== ENCOUNTER 2019-03-09 15:47 | Inpatient (IN) | payer MEDICARE, BC ==
--- NOTE | 2019-03-09 17:00 | CT ---
CT BRAIN NONCONTRAST: DATE: 03/09/2019 HISTORY: 88-year-old male with traumatic acute headache after fall. FINDINGS: There is no evidence of acute intra-axial or extra-axial hemorrhage. There is no midline shift or any other mass effect. There is no extra-axial fluid collection. There is no evidence of obstructive hydrocephalus. Calvarium is intact. IMPRESSION: No acute intracranial findings.
[2019-03-09 17:19] LABS: #Basophils 0.1 thou/uL (0.0-0.2); #Lymphocytes 1.4 thou/uL (1.20-3.40); #Monocytes 0.9 thou/uL (0.11-0.59); #Neutrophils 7.3 thou/uL (1.40-6.50); %Basophils 0.6 % (0.0-1.0); %Eosinophils 0.2 % (0.0-10.0); %Lymphocytes 14.6 % (21.0-51.0); %Monocytes 9.1 % (0.0-10.0); %Neutrophils 75.4 % (42.0-75.0); Hemoglobin 12.8 g/dL (14.0-18.0); Mean Corpuscular HGB CONC 35.2 g/dL (32.0-36.0); Mean Corpuscular Hemoglobin 36.1 pg (27.0-31.0); Mean Platelet Volume 8.4 fL (7.4-10.4); Platelet Count 143 thou/uL (130-400); RBC Distribution Width 12.4 % (11.5-14.5); Red Blood Cell (RBC) Count 3.54 mill/uL (4.70-6.10); White Blood Cell (WBC) Count 9.7 thou/uL (4.8-10.8)
[2019-03-09 17:40] LABS: ALT (SGPT) 91 U/L (8-55); AST (SGOT) 70 U/L (5-34); Albumin 3.9 g/dL (3.4-4.8); Alkaline Phosphatase 80 U/L (40-110); Anion Gap 14 mmol/L (10-20); BUN (Urea Nitrogen) 40 mg/dL (8.4-25.7); Bilirubin, Total 1.9 mg/dL (0.2-1.2); Calc. Creatinine Clearance 0 mL/min (70-130); Calcium 8.7 mg/dL (7.8-10.44); Carbon Dioxide 25 mmol/L (23-31); Chloride 98 mmol/L (98-107); Estimated GFR-MDRD 35; Globulin 3.2 g/dL (2.4-3.5); Glucose 119 mg/dL (83-110); Potassium 3.9 mmol/L (3.5-5.1); Protein, Total 7.1 g/dL (5.8-8.1); Sodium 133 mmol/L (136-145)
--- NOTE | 2019-03-09 17:51 | RAD ---
EXAM: Single view of the chest HISTORY: Fall with chest pain COMPARISON: 12/02/2018 FINDINGS: Single view of the chest shows a normal sized cardiomediastinal silhouette. Atheroscleroti c calcifications are seen in the aorta. There is no evidence of consolidation, mass, or pleural effusion. Degenerative changes are seen in the spine. IMPRESSION: No evidence of acute cardiopulmonary disease
[2019-03-09 18:01] LABS: CKMB 2.5 ng/mL (0-6.6)
[2019-03-09] MEDS ORDERED: Bacitracin 1 PK ONE (19:14)
[2019-03-09 19:46] LABS: Bacteria/HPF None Seen HPF (None Seen); Bilirubin Negative (Negative); Blood, Urine 1+ (Negative); Clarity Clear (Clear); Glucose, Urine (Dipstick) Normal (Negative); Leukocyte Negative Leu/uL (Negative); Mucous/LPF Rare LPF (<2+); Nitrite Negative (Negative); Protein, Urine (Dipstick) 30 mg/dL (Neg-Trace); RBC/HPF 0-3 HPF (0-3); Squamous Epithelial 0-3 HPF (0-3); Urobilinogen Normal mg/dL (Less than 2); WBC/HPF 0-3 HPF (0-3)
[2019-03-09 21:22] LABS: Troponin I 0.044 ng/mL (< 0.028)
[2019-03-09 22:19] VITALS: BMI 28.6
[2019-03-09 23:39] LABS: Troponin I 0.037 ng/mL (< 0.028)
[2019-03-10] MEDS ORDERED: Furosemide 20 MG/2 ML VIAL SLOW IVP SCH (08:15)
[2019-03-10 08:20] LABS: #Lymphocytes 1.3 thou/uL (1.20-3.40); #Neutrophils 8.3 thou/uL (1.40-6.50); %Eosinophils 0.2 % (0.0-10.0); %Lymphocytes 12.3 % (21.0-51.0); %Monocytes 9.6 % (0.0-10.0); %Neutrophils 77.9 % (42.0-75.0); Mean Corpuscular HGB CONC 34.9 g/dL (32.0-36.0); Mean Corpuscular Hemoglobin 35.8 pg (27.0-31.0); Mean Platelet Volume 9.1 fL (7.4-10.4); Platelet Count 148 thou/uL (130-400); RBC Distribution Width 12.5 % (11.5-14.5); Red Blood Cell (RBC) Count 3.62 mill/uL (4.70-6.10); White Blood Cell (WBC) Count 10.7 thou/uL (4.8-10.8)
[2019-03-10] MEDS: Amiodarone 200 MG TAB PO SCH (08:30)
[2019-03-10] MEDS: Carvedilol 6.25 MG TAB PO SCH ×2 (08:30→19:47)
[2019-03-10] MEDS: Aspirin 81 mg Enteric Coated Tablet PO SCH (08:30)
[2019-03-10] MEDS: Levothyroxine Sodium 50 MCG TAB PO SCH (08:31)
[2019-03-10] MEDS: Potassium Chloride 10 MEQ TAB PO SCH (08:31)
[2019-03-10 08:42] LABS: ALT (SGPT) 108 U/L (8-55); AST (SGOT) 69 U/L (5-34); Albumin 3.7 g/dL (3.4-4.8); Alkaline Phosphatase 76 U/L (40-110); Anion Gap 15 mmol/L (10-20); BUN (Urea Nitrogen) 37 mg/dL (8.4-25.7); Bilirubin, Total 2.1 mg/dL (0.2-1.2); Calc. Creatinine Clearance 44 mL/min (70-130); Calcium 8.7 mg/dL (7.8-10.44); Carbon Dioxide 21 mmol/L (23-31); Cardiac Risk 5.8 (Less than 4.5); Chloride 100 mmol/L (98-107); Cholesterol 163 mg/dl (< 200 Desired); Estimated GFR-MDRD 44; Globulin 3.3 g/dL (2.4-3.5); Glucose 116 mg/dL (83-110); HDL Cholesterol 28 mg/dL (>60 Neg Risk); LDL Cholesterol, Calculated 110 mg/dL; Potassium 3.6 mmol/L (3.5-5.1); Sodium 132 mmol/L (136-145); Triglycerides 124 mg/dL (Less than 150)
[2019-03-10] MEDS ORDERED: Levothyroxine Sodium 50 MCG TAB PO SCH (09:00)
[2019-03-10] MEDS ORDERED: Acetaminophen 325 MG TAB PO PRN (13:43)
[2019-03-10] MEDS ORDERED: Ondansetron PF 4 MG/2 ML Vial IVP PRN (13:43)
[2019-03-10] MEDS ORDERED: Ondansetron ODT 4 MG TAB PO PRN (13:43)
[2019-03-10] MEDS ORDERED: Senokot S 8.6-50 MG TAB PO PRN (13:43)
[2019-03-10] MEDS: Furosemide 20 MG/2 ML VIAL SLOW IVP SCH (14:52)
[2019-03-10] MEDS: Apixaban 5 MG TAB PO SCH (19:48)
[2019-03-11] MEDS: Furosemide 20 MG/2 ML VIAL SLOW IVP SCH ×2 (05:17→14:22)
[2019-03-11 05:25] LABS: #Lymphocytes 1.1 thou/uL (1.20-3.40); #Monocytes 0.9 thou/uL (0.11-0.59); #Neutrophils 7.8 thou/uL (1.40-6.50); %Basophils 0.3 % (0.0-1.0); %Eosinophils 0.4 % (0.0-10.0); %Lymphocytes 11.1 % (21.0-51.0); %Monocytes 8.8 % (0.0-10.0); %Neutrophils 79.5 % (42.0-75.0); Hemoglobin 12.5 g/dL (14.0-18.0); Mean Corpuscular HGB CONC 34.3 g/dL (32.0-36.0); Mean Corpuscular Hemoglobin 35.4 pg (27.0-31.0); Mean Platelet Volume 8.5 fL (7.4-10.4); Platelet Count 137 thou/uL (130-400); RBC Distribution Width 12.5 % (11.5-14.5); Red Blood Cell (RBC) Count 3.53 mill/uL (4.70-6.10); White Blood Cell (WBC) Count 9.8 thou/uL (4.8-10.8)
[2019-03-11 05:47] LABS: Anion Gap 12 mmol/L (10-20); BUN (Urea Nitrogen) 35 mg/dL (8.4-25.7); Calc. Creatinine Clearance 48 mL/min (70-130); Calcium 8.4 mg/dL (7.8-10.44); Carbon Dioxide 27 mmol/L (23-31); Chloride 97 mmol/L (98-107); Estimated GFR-MDRD 48; Glucose 105 mg/dL (83-110); Potassium 3.2 mmol/L (3.5-5.1); Sodium 133 mmol/L (136-145)
--- NOTE | 2019-03-11 07:13 | HP ---
PRIMARY CARE PHYSICIAN: Lucille Benavides MD. CHIEF COMPLAINT: Mechanical fall and generalized weakness. HISTORY OF PRESENT ILLNESS: Mr. Brown is an 88-year-old man with past medical history of hypertension, hyperlipidemia, hypothyroidism, atrial fibrillation, chronic systolic heart failure, and diastolic heart failure, who had presented to the ED late last night after he was transferred by EMS from his assisted living facility status post a fall. The patient states that he was getting up in the morning, was going to the restroom and had lost his balance and had a mechanical fall causing him to fall between a door and a piece of furniture. He states that he hit his head on the edge of the door; however, denied any loss of consciousness. He states over the last several days, he has noticed quite a bit of generalized weakness and overall not feeling well. He had denied any fever or chills, or any headache, blurred vision, dizziness, chest pain, palpitations, shortness of breath, abdominal pain, nausea, or vomiting. However, did state that over the last 2 to 3 days, he has felt a decreased appetite, malaise, fatigue, and generalized weakness that had caused him to fall. It was found recently by his doctor that his heart failure has worsened, therefore his home dose of Lasix was doubled for 1 day. He states that this helps with his symptoms; however, they had returned. Upon arriving into the ED, it was found that his BNP elevated at 2200 hours, and his serial troponins were found to be indeterminate at 0.040, 0.044, and 0.037. His chest x-ray was clear; however, did have some trace edema on his lower extremities. REVIEW OF SYSTEMS: All other systems reviewed and found to be negative unless mentioned in HPI. PAST MEDICAL HISTORY: Significant for hypertension, hyperlipidemia, atrial fibrillation, hypothyroidism, chronic systolic and diastolic heart failure. PAST SURGICAL HISTORY: Removal of skin cancer lesions, eye surgery, appendectomy, right hip replacement. PSYCHIATRIC HISTORY: None. SOCIAL HISTORY: The patient drinks socially roughly 1 beer week; however, denies any tobacco or illicit drug use. KNOWN ALLERGIES: Avocado, lisinopril, and sulfa. CURRENT HOME MEDICATIONS: 1. Amiodarone 200 mg daily. 2. Apixaban 5 mg b.i.d. 3. Aspirin 81 mg daily. 4. Carvedilol 6.25 mg b.i.d. 5. Levothyroxine 50 mcg daily. 6. Potassium chloride 10 mEq daily. 7. Folic acid 1 mg daily. 8. Lexapro 10 mg daily. 9. Vitamin B12 1000 mcg daily. PHYSICAL EXAMINATION: VITAL SIGNS: BP 152/107, pulse 109, respirations 20, temperature 98.9, O2 saturation 95% on 2.5 L of oxygen via nasal cannula. GENERAL: The patient is awake, alert, and oriented x3. He is currently lying comfortably in bed and in no acute distress. His family is at bedside. HEENT: The patient does appear to have a mild abrasion to the left side of his forehead and scalp. Pupils are round and reactive to light. Extraocular muscles intact. Moist mucous membranes noted. NECK: Soft and supple. Trachea midline. CARDIOVASCULAR: Positive S1 and S2. Irregularly irregular. No murmur auscultated. RESPIRATORY: Clear to auscultation bilaterally. No wheezes, rales, or rhonchi. ABDOMEN: Soft, nontender. Bowel sounds present. EXTREMITIES: Moves all extremities equal. Pedal and radial pulses 2+ bilaterally. Strength 5+ bilaterally. There is trace edema noted. NEUROLOGIC: Cranial nerves 2 through 12 grossly intact. No focal deficits noted. Speech intact and normal. Gait not assessed. SKIN: Warm, dry, and intact. The patient does have the abrasion to the left forehead and scalp noted above. PSYCHIATRIC: Good mood and affect. LABORATORY DATA: WBC 10.7, RBC 3.62, hemoglobin 13.0, hematocrit 37.2, platelets 148. Sodium 132, potassium 3.6, anion gap 15, BUN 37, creatinine 1.52, estimated GFR 44, glucose 116, magnesium 2.0. CK-MB 2.5, troponin 0.040, 0.044, 0.037. BNP 2248.7. Triglycerides 124, cholesterol 163, LDL 110, HDL 28. TSH 1.3687. Urinalysis showed 11 to 20 hyaline casts, 1+ blood, 30 protein, otherwise unremarkable. DIAGNOSTIC IMAGING: Brain CT showed no acute intracranial findings. Portable chest x-ray showed no evidence of acute cardiopulmonary disease. ASSESSMENT/PLAN: 1. Possible congestive heart failure exacerbation. The patient will be treated symptomatically including IV furosemide 20 mg b.i.d. We will also consult Cardiology for further recommendations, and he will be restarted on his home regimen at this time. 2. Hypertension. 3. Hyperlipidemia. 4. Hypothyroidism. 5. Chronic systolic and diastolic heart failure. We will recheck an echocardiogram. 6. Chronic atrial fibrillation, currently rate controlled. He is on anticoagulation including Eliquis. Due to his recent fall, a CT of the head was done; however, did not show any acute findings including bleed. 7. Deep venous thrombosis and gastrointestinal prophylaxis. 8. Code status, full code. 9. Surrogate decision maker is his daughter, Marianne. 10. Disposition pending further workup clinical findings and the patient's progress. Job ID: [id number]
[2019-03-11] MEDS ORDERED: Potassium Chloride 20 MEQ TAB PO SCH (08:00)
[2019-03-11] MEDS: Carvedilol 6.25 MG TAB PO SCH (09:22)
[2019-03-11] MEDS: Levothyroxine Sodium 50 MCG TAB PO SCH (09:22)
[2019-03-11] MEDS: Apixaban 5 MG TAB PO SCH ×2 (09:22→21:34)
[2019-03-11] MEDS: Aspirin 81 mg Enteric Coated Tablet PO SCH (09:22)
[2019-03-11] MEDS: Amiodarone 200 MG TAB PO SCH (09:22)
[2019-03-11] MEDS: Potassium Chloride 10 MEQ TAB PO SCH (09:24)
[2019-03-11 12:27] LABS: ALT (SGPT) 107 U/L (8-55); AST (SGOT) 49 U/L (5-34); Albumin 3.4 g/dL (3.4-4.8); Alkaline Phosphatase 73 U/L (40-110); Bilirubin, Direct 0.9 mg/dL (0.1-0.3); Bilirubin, Total 2.1 mg/dL (0.2-1.2); Protein, Total 6.4 g/dL (5.8-8.1)
--- NOTE | 2019-03-11 17:57 | PDOC.HOSPP ---
- Subjective Encounter Date: 03/11/19 Encounter Time: 11:00 Subjective: Pt seen for followup re: cardiomyopathy. Reports generalized weakness. - Objective Vital Signs & Weight: Vital Signs (12 hours) Temp Pulse Pulse Pulse Resp BP BP 03/11/19 15:56 97.8 F 106 H 20 03/11/19 12:00 98.1 F 98 22 H 03/11/19 09:22 146/102 H 03/11/19 08:39 98 119 H 137/99 H 03/11/19 08:00 97.9 F 102 H 20 BP BP Pulse Ox Pulse Ox 03/11/19 15:56 139/79 93 L 03/11/19 12:00 134/92 H 95 03/11/19 09:22 03/11/19 08:39 137/94 H 96 03/11/19 08:00 144/105 H 95 Weight Weight 201 lb 3.2 oz I&O: 03/10/19 03/11/19 03/12/19 06:59 06:59 06:59 Intake Total 240 890 Output Total 400 1750 Balance -160 -860 Result Diagrams: 03/11/19 05:14 03/11/19 05:13 Additional Labs: Labs and MARs reviewed by me EKG Reviewed by me: Yes (Tele: a. sushant) Hospitalist ROS - Review of Systems Constitutional: reports: weakness Respiratory: denies: cough, dry, shortness of breath, hemoptysis, SOB with excertion, pleuritic pain, sputum, wheezing Cardiovascular: denies: chest pain, palpitations, orthopnea, paroxysmal noc. dyspnea, edema, light headedness - Medication Medications: Active Medications Generic Name Dose Route Start Last Admin Trade Name Freq PRN Reason Stop Dose Admin Amiodarone HCl 200 mg 03/10/19 09:00 03/11/19 09:22 Cordarone PO 200 mg DAILY DAVE Administration Apixaban 5 mg 03/10/19 21:00 03/11/19 09:22 Eliquis PO 5 mg BID DAVE Administration Aspirin 81 mg 03/10/19 09:00 03/11/19 09:22 Ecotrin PO 81 mg DAILY DAVE Administration Furosemide 20 mg 03/10/19 14:00 03/11/19 14:22 Lasix SLOW IVP 20 mg 0600,1400 DAVE Administration Levothyroxine Sodium 50 mcg 03/10/19 09:00 03/11/19 09:22 Synthroid PO 50 mcg DAILY DAVE Administration Potassium Chloride 10 meq 03/10/19 09:00 03/11/19 09:24 Klor-Con 10 PO Not Given DAILY DAVE Sodium Chloride 10 ml 03/10/19 09:00 03/11/19 09:23 Flush - Normal Saline IVF 10 ml Q12HR DAVE Administration - Exam General Appearance: NAD Eye: anicteric sclera ENT: moist mucosa Neck: supple Heart: irregular Respiratory: CTAB Gastrointestinal: soft, non-tender Extremities: no clubbing Neurological: no weakness Musculoskeletal: no muscle wasting Psychiatric: normal affect, normal behavior Hosp A/P (1) Generalized weakness Code(s): R53.1 - WEAKNESS Status: Acute (2) Abnormal LFTs Code(s): R94.5 - ABNORMAL RESULTS OF LIVER FUNCTION STUDIES Status: Acute (3) Cardiomyopathy Code(s): I42.9 - CARDIOMYOPATHY, UNSPECIFIED Status: Chronic (4) HTN (hypertension) Code(s): I10 - ESSENTIAL (PRIMARY) HYPERTENSION Status: Chronic Qualifiers: (5) Hypothyroidism Code(s): E03.9 - HYPOTHYROIDISM, UNSPECIFIED Status: Chronic (6) Falls Code(s): W19.XXXA - UNSPECIFIED FALL, INITIAL ENCOUNTER Status: Chronic - Plan PT/OT, out of bed/ambulate Check abdo US. Cardiology consulted re: cardiomyopathy. TSH normal.
[2019-03-11] MEDS: Carvedilol 25 MG TAB PO SCH (21:33)
[2019-03-11 22:02] LABS: Hemoglobin 13.5 g/dL (14.0-18.0); Platelet Count 157 thou/uL (130-400)
[2019-03-12] MEDS: Furosemide 20 MG/2 ML VIAL SLOW IVP SCH ×2 (05:21→13:29)
[2019-03-12 05:26] LABS: #Eosinphils 0.1 thou/uL (0.0-0.7); #Lymphocytes 1.2 thou/uL (1.20-3.40); #Monocytes 0.8 thou/uL (0.11-0.59); #Neutrophils 6.1 thou/uL (1.40-6.50); %Basophils 0.2 % (0.0-1.0); %Eosinophils 1.4 % (0.0-10.0); %Lymphocytes 14.8 % (21.0-51.0); %Monocytes 9.3 % (0.0-10.0); %Neutrophils 74.4 % (42.0-75.0); Hemoglobin 13.2 g/dL (14.0-18.0); Mean Corpuscular HGB CONC 35.3 g/dL (32.0-36.0); Mean Corpuscular Hemoglobin 36.2 pg (27.0-31.0); Mean Platelet Volume 8.9 fL (7.4-10.4); Platelet Count 160 thou/uL (130-400); RBC Distribution Width 12.6 % (11.5-14.5); Red Blood Cell (RBC) Count 3.64 mill/uL (4.70-6.10); White Blood Cell (WBC) Count 8.2 thou/uL (4.8-10.8)
[2019-03-12 05:48] LABS: Anion Gap 13 mmol/L (10-20); BUN (Urea Nitrogen) 32 mg/dL (8.4-25.7); Calc. Creatinine Clearance 48 mL/min (70-130); Calcium 8.3 mg/dL (7.8-10.44); Carbon Dioxide 27 mmol/L (23-31); Chloride 97 mmol/L (98-107); Estimated GFR-MDRD 50; Glucose 114 mg/dL (83-110); Potassium 3.5 mmol/L (3.5-5.1); Sodium 133 mmol/L (136-145)
--- NOTE | 2019-03-12 07:47 | CON ---
DATE OF CONSULTATION: 03/11/2019 INDICATION FOR CONSULTATION: An 88-year-old gentleman with recurrent atrial fibrillation, history of cardiomyopathy with severe decrease in left ventricular systolic function, ejection fraction is now 20% to 25%. We were asked to see this patient due to frequent falls and congestive heart failure symptoms as well as atrial fibrillation with rapid ventricular response. HISTORY OF PRESENT ILLNESS: This very unfortunate 88-year-old gentleman, who has been followed by me for quite some time. He does have history of intermittent atrial fibrillation. He underwent a cardioversion for his atrial fibrillation back in November of this year. He remained in sinus rhythm when he was seen in the office in December 26, 2018. He now returns to the hospital, was admitted due to frequent falls. He was found to have to be back in his atrial fibrillation. Also, he has had elevation of the cardiac enzymes, which is indeterminate, which may be due to demand ischemia, most likely [id number] elevation myocardial infarction type 2. Troponin I was 0.044, then decreased down to 0.037. He also had a BNP, which is elevated at 2248 compatible with congestive heart failure. However, he denies any significant shortness of breath. He says he has just been feeling unsteady on his feet and weak and has been falling. He is in an assisted living facility. He has been ambulating today, however, in the halls with assistance. His atrial fibrillation shows also ventricular response, which is elevated with a heart rate of 98 to 102, respiratory rate is 16 to 22. Does not appear to be short of breath and examination does not show any gross evidence of congestive heart failure. However, the BNP remains elevated. His ejection fraction has worsened since his echocardiogram in October 2018, which showed ejection fraction of 45% to 50% with mild mitral valve regurgitation. At this time, it appears that he has moderate aortic valve regurgitation as well as severe mitral valve regurgitation. He also has some degree of diastolic dysfunction. He denied any chest pain and is otherwise relatively stable. His creatinine was 1.4, potassium was 3.2. He has actually been on amiodarone. He was on 200 mg once a day. He is also taking aspirin 81 mg as well as Eliquis 5 mg twice a day. PAST MEDICAL HISTORY: Significant for atrial fibrillation. He has had history of nonsustained ventricular tachycardia, paroxysmal atrial fibrillation. He has had a detached retina. He has prostate cancer and hypothyroidism. PAST SURGICAL HISTORY: He has had an appendectomy. He has had basal cell carcinoma removal. He has had a cystoscopy performed. He has had a polyp removed from the penis. He has had eye surgery. He has hip surgery in 2018. He had his last cardioversion in June 2018 and then again in November 2018. He has coronary artery disease and left heart catheterization with 50% stenosis in the left anterior descending artery, first obtuse marginal branch and distal right coronary artery. In the mid circumflex, he had a 70% stenosis in the first diagonal branch. This has been treated medically. FAMILY HISTORY: Noncontributory. SOCIAL HISTORY: He does not smoke. He has no alcohol use at this time aside from occasional social drink. ALLERGIES: HE IS ALLERGIC TO SULFA WELL LISINOPRIL. REVIEW OF SYSTEMS: HEENT: He denied any HEENT complaints. CONSTITUTIONAL: He has no fevers. No weight gain or chills. PULMONARY: He denied any significant shortness of breath. He does say he gets some mild shortness of breath if he over exerts himself. CARDIOVASCULAR: He did not notice any significant changes with his heart rate despite having atrial fibrillation with somewhat rapid ventricular response. GI: No nausea, vomiting, or diarrhea. : He had no complaints. No dysuria, polyuria, or hematuria. NEUROLOGIC: He says he is unsteady on his feet, and this is allowing fall. He has not had any syncopal episodes. MEDICATIONS: Prior to admission included: 1. Furosemide 40 mg a day. 2. Amiodarone 200 mg a day. 3. Aspirin 81 mg a day. 4. Coreg 6.25 mg b.i.d. 5. Folic acid 1 mg once a day. 6. Vitamin B12. 7. Tylenol. 8. Ranitidine 75 mg b.i.d. 9. Eliquis 5 mg b.i.d. 10. Synthroid 50 mcg daily. 11. Potassium in the form of Klor-Con 10 mEq twice a day. PHYSICAL EXAMINATION: GENERAL: Reveals a very pleasant elderly gentleman, somewhat confused, but otherwise is relatively competent mentally. VITAL SIGNS: Show a blood pressure of 137/94, earlier was 146/102. He is afebrile. Heart rate 98 to 102 with atrial fibrillation. Respiratory rate 16 to 22. HEENT: Shows the head to be normocephalic and atraumatic. Carotid pulses are present. I did not hear any significant bruits. No obvious JVD was noted. SKIN: Warm and dry. CARDIOVASCULAR: Reveals an irregularly irregular rhythm. There is systolic murmur at the apex compatible with his mitral valve regurgitation. CHEST: His chest was relatively clear to auscultation. There were very few minimal rales on the right base. ABDOMEN: Soft and nontender. Positive bowel sounds are present. EXTREMITIES: Show no clubbing, cyanosis, or edema. Pedal pulses are present. NEUROLOGIC: The patient is grossly intact or his function is concerned. He seems to be mildly confused, but otherwise is doing overall well. IMPRESSION: 1. Paroxysmal atrial fibrillation, which maybe chronic now. He has had a couple of cardioversions, but continues to convert back to atrial fibrillation. We will ask wheelchair van operator first responder to see this patient since he has a decrease in left ventricular systolic function with the atrial fibrillation and also has associated rapid ventricular response at times. He actually may be a candidate to undergo implantation of a biventricular pacemaker. If the heart rate is deemed to be too slow at times with medical management, then we can control the tachycardia by giving medications. He most likely does have some degree of sick sinus syndrome. We will have further discussion with the wheelchair van operator first responder as how best to proceed whether to change medications or again to increase the dose of the amiodarone once again to a higher dose; however, I am not in favor of increasing this amiodarone this elderly gentleman. 2. History of nonischemic cardiomyopathy, severe decrease in left ventricular systolic function at this time. When the patient has atrial fibrillation, ejection fraction always decreased significantly. His coronary artery disease has been stable since his last cardiac catheterization. 3. Chronic congestive heart failure. Again, this was relatively stable on his last echocardiogram in October of this year, but now again has decreased to 20% to 25% with the onset of the atrial fibrillation. 4. History of hypertension. This is slightly elevated at this time. We will continue to monitor that. We may be able to change his medications. We could increase the beta john in addition to the amiodarone. He is already taking 6.25 mg of Coreg. We will ask for the recommendations from the wheelchair van operator first responder how we can best proceed in this gentleman. At this time, I will go ahead and increase the dose of the Coreg, see how he tolerates this. As far as his falls are concerned, he is I believe being evaluated to go to rehab to see if he can get some strength back and hopefully, this will decrease the risk of the falls. Otherwise, he may need to consider stopping the Eliquis with the frequent falls. Job ID: [id number]
[2019-03-12] MEDS: Levothyroxine Sodium 50 MCG TAB PO SCH (08:06)
[2019-03-12] MEDS: Aspirin 81 mg Enteric Coated Tablet PO SCH (08:06)
[2019-03-12] MEDS: Potassium Chloride 10 MEQ TAB PO SCH (08:06)
[2019-03-12] MEDS: Amiodarone 200 MG TAB PO SCH (08:06)
[2019-03-12] MEDS: Apixaban 5 MG TAB PO SCH (08:06)
[2019-03-12] MEDS: Carvedilol 25 MG TAB PO SCH (08:07)
--- NOTE | 2019-03-12 08:50 | ULT ---
ABDOMEN ULTRASOUND: HISTORY: Abnormal liver function tests. Renal failure. COMPARISON: None. TECHNIQUE: Utilizing a multihertz transducer, sonographic imaging of the abdomen is performed in the longitudina l and transverse plane. FINDINGS: The head and proximal pancreatic body have a normal echotexture. The remainder of the pancreas is ob scured by bowel gas. Visualized IVC and aorta are unremarkable. Hepatic parenchyma has a normal echotexture. No hepatic masses or intrahepatic biliary dilatation. The contour of the hepatic margin is maintained. Right hepatic lobe measures 15 cm. Main portal vein is patent. Appropriate direction of flow. No sonographic evidence of cholelithiasis, gallbladder wall thickening, or pericholecystic fluid. Ne gative Danielle's sign. Common bile duct diameter is 0.4 cm. The spleen has a normal echotexture measuring 8.2 cm in maximum dimension. Bilateral renal cortical thinning. Bilaterally, no hydronephrosis. The right kidney measures 9.6 x 4.3 x 4.7 cm. The left kidney measures 10.3 x 5.0 x 10.5 cm. Incidental right-sided pleural effusion is noted. IMPRESSION: Unremarkable abdomen ultrasound. POS: [facility]
[2019-03-12 12:24] VITALS: BP 128/80; TEMP 97.7
--- NOTE | 2019-03-12 12:24 | CON ---
DATE OF CONSULTATION: 03/12/2019 REASON FOR CONSULTATION: Atrial fibrillation, falls, and cardiomyopathy. HISTORY OF PRESENT ILLNESS: Mr. Brown is a pleasant 88-year-old white male with a history of chronic systolic heart failure with mildly decreased left ventricular systolic function; nonsustained ventricular tachycardia; and paroxysmal atrial fibrillation, which is now persistent. He underwent cardioversion by Dr. Saldivar on December 04, 2018, which resulted in sinus rhythm. He has been treated with amiodarone and Eliquis. He has had several recent falls at his assisted living facility. He was admitted on March 09, after a fall. He was getting up. He used a restroom, lost his balance, which caused a fall into a door and furniture. He hit his head on the door, but did not have syncope. It was noted to be an atrial fibrillation with rapid ventricular response, which is now rate controlled. His BNP was elevated at 2200, troponins are indeterminant. Echocardiogram on March 10, 2019, showed a severely depressed left ventricular systolic fraction with ejection fraction of 20% to 25%, mildly dilated left atrium, severe mitral regurgitation, and moderate aortic regurgitation. Head CT showed no evidence of intracranial hemorrhage or subdural hematoma. His liver function tests are elevated. PAST MEDICAL HISTORY: 1. Hypothyroidism. 2. Basal cell carcinoma. 3. Nonsustained ventricular tachycardia. 4. Paroxysmal atrial fibrillation diagnosed in 2009 initially, now persistent. 5. Detached retina. 6. Prostate cancer. 7. Chronic systolic heart failure with normal PET stress test on 12/18/2017, with ejection fraction of 51%. 8. Coronary artery disease. PAST SURGICAL HISTORY: 1. Appendectomy. 2. Basal cell carcinoma removal. 3. Cystoscopy with polyp removal. 4. Eye surgery. 5. Hip surgery. 6. Left heart catheterization on 07/06/2018, with 50% proximal LAD OM1 distal RCA stenosis and mid circumflex stenosis, 70% stenosis in the first diagonal and distal LAD. FAMILY HISTORY: Unremarkable. SOCIAL HISTORY: He lives in an assisted living facility. No alcohol. ALLERGIES: LISINOPRIL AND SULFA. HOME MEDICATIONS: 1. Amiodarone 200 mg daily. 2. Apixaban 5 mg b.i.d. 3. Aspirin 81 mg daily. 4. Carvedilol 6.25 mg b.i.d. 5. Levothyroxine 50 mcg daily. 6. Potassium chloride 10 mEq daily. 7. Folic acid 1 mg daily. 8. Lexapro 10 mg daily. 9. Vitamin B12 of 1000 mcg daily. REVIEW OF SYSTEMS: No seizure or syncope. No unilateral weakness or numbness. No melena, bright red blood per rectum, or hematemesis. No orthopnea or edema. PHYSICAL EXAMINATION: GENERAL: Alert and oriented x4, well groomed, in no apparent distress. VITAL SIGNS: Temperature 97.8, pulse 100, respiratory rate 12, blood pressure 117/84, and 97% oxygen saturation on room air. SKIN: No lesions. NECK: No jugular venous distention. CARDIOVASCULAR: Irregularly irregular rhythm. A 2/6 holosystolic murmur at the apex. LUNGS: Clear to auscultation bilaterally. Normal respiratory effort. ABDOMEN: Nontender and nondistended. EXTREMITIES: No cyanosis, clubbing, or edema. LABORATORY DATA: BNP 2200. Hemoglobin 12.8, platelets 143, sodium 132, potassium 3.6, BUN 37, creatinine 1.5, and glucose 116. EKG, atrial fibrillation, incomplete left bundle-branch block with QRS duration 114 milliseconds, nonspecific ST changes, QTc 499 milliseconds. IMPRESSION AND PLAN: 1. Persistent atrial fibrillation. His rate is relatively controlled on telemetry with heart rates between 60 and 100. 2. Frequent falls with significant fall 2 days ago, requiring hospitalization. 3. Acute on chronic systolic heart failure with elevated BNP, is improved with intravenous Lasix 20 mg b.i.d. Ejection fraction is now 20% to 25%. His QRS is narrow. RECOMMENDATIONS: Consider left atrial appendage closure device as an outpatient. I will discuss this further with Dr. Echols as well as his atrial fibrillation. We will discuss rate versus rhythm control. Job ID: [id number]
--- NOTE | 2019-03-12 14:28 | PDOC.CPN ---
- Objective Allergies/Adverse Reactions: Allergies Allergy/AdvReac Type Severity Reaction Status Date / Time avocado Allergy Verified 09/06/18 17:04 lisinopril Allergy Verified 09/06/18 17:04 Sulfa (Sulfonamide Allergy Verified 09/06/18 17:04 Antibiotics) Visit Medications: Current Medications Acetaminophen (Tylenol) 650 mg PO Q4H PRN PRN Reason: Headache/Fever/Mild Pain (1-3) Amlodipine Besylate (Norvasc) 5 mg PO DAILY [facility] Apixaban (Eliquis) 5 mg PO BID [facility] Last Admin: 03/12/19 08:06 Dose: 5 mg Aspirin (Ecotrin) 81 mg PO DAILY [facility] Last Admin: 03/12/19 08:06 Dose: 81 mg Carvedilol (Coreg) 12.5 mg PO TID [facility] Furosemide (Lasix) 20 mg SLOW IVP 0600,1400 [facility] Last Admin: 03/12/19 13:29 Dose: 20 mg Levothyroxine Sodium (Synthroid) 50 mcg PO DAILY [facility] Last Admin: 03/12/19 08:06 Dose: 50 mcg Ondansetron HCl (Zofran Odt) 4 mg PO Q6H PRN PRN Reason: Nausea/Vomiting Ondansetron HCl (Zofran) 4 mg IVP Q6H PRN PRN Reason: Nausea/Vomiting Potassium Chloride (Klor-Con 10) 10 meq PO DAILY [facility] Last Admin: 03/12/19 08:06 Dose: 10 meq Senna/Docusate Sodium (Senokot S) 2 tab PO BID PRN PRN Reason: Constipation Sodium Chloride (Flush - Normal Saline) 10 ml IVF Q12HR [facility] Last Admin: 03/12/19 08:08 Dose: 10 ml Sodium Chloride (Flush - Normal Saline) 10 ml IVF PRN PRN PRN Reason: Saline Flush Vital Signs & Weight: Vital Signs Temp Pulse Resp BP BP Pulse Ox 03/12/19 11:42 97.7 F 92 18 128/80 95 03/12/19 08:00 95 03/12/19 07:28 98.3 F 98 18 163/110 H 95 03/12/19 04:39 97.8 F 94 18 129/96 H 95 Weight 197 lb 6.4 oz - Labs Result Diagrams: 03/12/19 04:32 03/12/19 04:32 Troponin/CKMB CK-MB (CK-2) 2.5 ng/mL (0-6.6) 03/09/19 17:11 Troponin I 0.037 ng/mL (< 0.028) H 03/09/19 23:06 - Assessment/Plan Assessment/Plan: <addendum> * The pt will d/c to Rehab with LifeVest. LifeVest can be placed at Rehab. If the pt is not capable to manage LifeVest, LifeVest can be d/christine.
[2019-03-12] MEDS ORDERED: Carvedilol 25 MG TAB PO SCH (15:00)
--- NOTE | 2019-03-12 22:41 | DIS ---
DATE OF ADMISSION: 03/11/2019 DATE OF DISCHARGE: 03/12/2019 PRIMARY CARE PROVIDER: Lucille Benavides MD DISCHARGE DIAGNOSES: 1. Generalized weakness. 2. Abnormal liver function tests. 3. Cardiomyopathy. 4. Falls. CONSULTATIONS DURING THIS HOSPITALIZATION: Cardiology, Dr. Echols. DISCHARGE MEDICATIONS: 1. Apixaban 5 mg 2 times a day. 2. Escitalopram 10 mg daily. 3. Levothyroxine 50 mcg daily. 4. Potassium chloride 10 mEq daily. 5. Amlodipine 5 mg daily. 6. Aspirin 81 mg daily. 7. Coreg 12.5 mg 3 times a day. 8. Vitamin B12 of 1000 mcg daily. 9. Folic acid 1 mg daily. 10. Lasix 40 mg daily. HOSPITAL COURSE: Mr. Brown is a pleasant 88-year-old gentleman, who was admitted to [facility] on March 10, 2019, for generalized weakness and mechanical fall. Please refer to Mr. Hudson's history and physical note dated March 10, 2019, for further details. 2D echocardiogram showed left ventricular ejection fraction of 20% to 25%, mildly dilated left atrium, severe mitral regurgitation, moderate aortic regurgitation, and [id number] tricuspid regurgitation. The patient also had abnormal liver function tests, likely secondary to hepatic congestion from congestive heart failure. Abdominal ultrasound was unremarkable. Amiodarone has been discontinued. His carvedilol dose was increased. He was evaluated by [facility]. He has been accepted for inpatient rehabilitation at [facility]. On the day of discharge, he has sodium 133, potassium 3.5, and creatinine 1.36. White count is 8200, hemoglobin 13.2, and platelet count 160,000. Many thanks for allowing me to participate in your patient's care. Please feel free to contact me with any questions or concerns. DISCHARGE DESTINATION: [facility]. TIME SPENT: Total amount of time spent coordinating this discharge: 32 minutes. Job ID: [id number]
[2019-03-13] MEDS ORDERED: Amlodipine 5 MG TAB PO SCH (09:00)
== END 2019-03-12 15:02 | DRG 308 ==
LOC: ERS 15:47 → 2SW 21:39 → OBSVTOIN 03-11 15:38
PROVIDERS: ADMIT Internal Medicine; ATTEND Internal Medicine
DX: I48.19 Other persistent atrial fibrillation (principal); I50.23 Acute on chronic systolic (congestive) heart failure; I42.9 Cardiomyopathy, unspecified; I11.0 Hypertensive heart disease with heart failure; E03.9 Hypothyroidism, unspecified; Z96.641 Presence of right artificial hip joint; I07.1 Rheumatic tricuspid insufficiency; I34.0 Nonrheumatic mitral (valve) insufficiency; K76.1 Chronic passive congestion of liver; S09.90XA Unspecified injury of head, initial encounter; W01.190A Fall on same level from slipping, tripping and stumbling with subsequent striking against furniture, initial encounter; Z90.49 Acquired absence of other specified parts of digestive tract; Z85.828 Personal history of other malignant neoplasm of skin; Z79.82 Long term (current) use of aspirin; Z79.899 Other long term (current) drug therapy; Z88.2 Allergy status to sulfonamides; Z88.8 Allergy status to other drugs, medicaments and biological substances
CPT/HCPCS: 36415; 70450; 71045; 76700; 80048; 80053; 80061; 80076; 81003; 81015; 82553; 83735; 83880; 84443; 84484; 85025; 93005; 93306; 96360; J1940

== ENCOUNTER 2019-03-24 16:50 | Emergency (ER) | payer MEDICARE, BC ==
[2019-03-24 17:37] LABS: #Basophils 0.1 thou/uL (0.0-0.2); #Eosinphils 0.1 thou/uL (0.0-0.7); #Lymphocytes 1.3 thou/uL (1.20-3.40); #Monocytes 0.4 thou/uL (0.11-0.59); %Basophils 0.9 % (0.0-1.0); %Eosinophils 1.2 % (0.0-10.0); %Monocytes 6.7 % (0.0-10.0); %Neutrophils 69.3 % (42.0-75.0); Hemoglobin 14.4 g/dL (14.0-18.0); Mean Corpuscular HGB CONC 34.8 g/dL (32.0-36.0); Mean Corpuscular Hemoglobin 36.6 pg (27.0-31.0); Mean Platelet Volume 8.3 fL (7.4-10.4); Platelet Count 168 thou/uL (130-400); RBC Distribution Width 13.2 % (11.5-14.5); Red Blood Cell (RBC) Count 3.92 mill/uL (4.70-6.10); White Blood Cell (WBC) Count 5.8 thou/uL (4.8-10.8)
[2019-03-24 17:53] LABS: ALT (SGPT) 43 U/L (8-55); AST (SGOT) 30 U/L (5-34); Albumin 3.6 g/dL (3.4-4.8); Alkaline Phosphatase 109 U/L (40-110); Anion Gap 15 mmol/L (10-20); BUN (Urea Nitrogen) 30 mg/dL (8.4-25.7); Bilirubin, Total 1.2 mg/dL (0.2-1.2); Calc. Creatinine Clearance 0 mL/min (70-130); Calcium 8.6 mg/dL (7.8-10.44); Carbon Dioxide 22 mmol/L (23-31); Chloride 104 mmol/L (98-107); Estimated GFR-MDRD 41; Globulin 2.9 g/dL (2.4-3.5); Glucose 120 mg/dL (83-110); Potassium 4.3 mmol/L (3.5-5.1); Protein, Total 6.5 g/dL (5.8-8.1); Sodium 137 mmol/L (136-145)
--- NOTE | 2019-03-24 18:19 | CT ---
CT BRAIN WITHOUT CONTRAST ENHANCEMENT: HISTORY: The patient has a head injury, fall. The patient is on Eliquis. COMPARISON: 03/09/2019 FINDINGS: There is generalized ventricular and sulcal prominence. There are no signs of intracerebral hemorrhag e or extraaxial fluid collections. The mastoid air cells and visualized sinuses are clear. IMPRESSION: No acute intracranial abnormalities. POS: [facility]
== END 2019-03-24 20:54 ==
LOC: ERS 16:50
DX: S00.431A Contusion of right ear, initial encounter (principal); I48.91 Unspecified atrial fibrillation; I49.9 Cardiac arrhythmia, unspecified; E03.9 Hypothyroidism, unspecified; I11.0 Hypertensive heart disease with heart failure; I50.9 Heart failure, unspecified; Z79.01 Long term (current) use of anticoagulants; Z79.82 Long term (current) use of aspirin; Z79.899 Other long term (current) drug therapy; W18.30XA Fall on same level, unspecified, initial encounter
CPT/HCPCS: 36415; 70450; 80053; 84484; 85025; 93005

== ENCOUNTER 2019-11-29 13:33 | Outpatient (CLI) | payer MEDICARE, BC, OTHER ==
--- NOTE | 2019-11-29 14:02 | RAD ---
EXAM: Chest 2 views: HISTORY: Chest congestion, positive for Covid October 11, 2019 COMPARISON: 10/29/2019 FINDINGS: Minimal increased markings bilaterally but showing definite improvement from prior exam Heart size:Within normal limits. Lungs:Clear of acute process. Atherosclerotic changes of the aorta. No confluent lobar pneumonia, overt edema, pleural effusion, pneumothorax, or other significant acute process. IMPRESSION: Mild increased markings bilaterally showing improvement from prior study. No significant new process. Atherosclerosis of the aorta. No acute intrathoracic disease.
[2019-11-29 16:42] LABS: #Eosinphils 0.3 thou/uL (0.0-0.7); #Lymphocytes 2.6 thou/uL (1.20-3.40); #Monocytes 0.6 thou/uL (0.11-0.59); #Neutrophils 3.3 thou/uL (1.40-6.50); %Basophils 0.6 % (0.0-1.0); %Eosinophils 4.7 % (0.0-10.0); %Lymphocytes 38.1 % (21.0-51.0); %Monocytes 8.5 % (0.0-10.0); %Neutrophils 48.1 % (42.0-75.0); Hemoglobin 16.3 g/dL (14.0-18.0); Mean Corpuscular HGB CONC 34.2 g/dL (32.0-36.0); Mean Corpuscular Hemoglobin 35.2 pg (27.0-31.0); Mean Platelet Volume 9.7 fL (7.4-10.4); Platelet Count 171 thou/uL (130-400); RBC Distribution Width 13.5 % (11.5-14.5); Red Blood Cell (RBC) Count 4.63 mill/uL (4.70-6.10); White Blood Cell (WBC) Count 6.9 thou/uL (4.8-10.8)
[2019-11-29 16:52] LABS: ALT (SGPT) 21 U/L (8-55); AST (SGOT) 23 U/L (5-34); Albumin 3.7 g/dL (3.4-4.8); Alkaline Phosphatase 96 U/L (40-110); Anion Gap 12 mmol/L (10-20); BUN (Urea Nitrogen) 15 mg/dL (8.4-25.7); Bilirubin, Total 1.1 mg/dL (0.2-1.2); Calc. Creatinine Clearance 0 mL/min (70-130); Calcium 8.9 mg/dL (7.8-10.44); Carbon Dioxide 26 mmol/L (23-31); Chloride 105 mmol/L (98-107); Estimated GFR-MDRD 58; Glucose 103 mg/dL (83-110); Potassium 4.3 mmol/L (3.5-5.1); Protein, Total 7.7 g/dL (5.8-8.1); Sodium 139 mmol/L (136-145)
[2019-11-29 17:10] LABS: Free T4 (Free Thyroxine) 0.96 ng/dL (0.70-1.48); Thyroid Stimulating Hormone 2.3765 uIU/mL (0.35-4.94)
== END 2019-11-29 13:34 | disposition home or self-care (01) ==
LOC: SCSRAD 13:33
PROVIDERS: ATTEND Family Medicine
DX: U07.1 COVID-19 (principal); E03.9 Hypothyroidism, unspecified; I10 Essential (primary) hypertension; R91.8 Other nonspecific abnormal finding of lung field; I70.0 Atherosclerosis of aorta
CPT/HCPCS: 36415; 71046; 80053; 84439; 84443; 85025

== ENCOUNTER 2020-01-18 21:17 | Inpatient (IN) | payer MEDICARE, BC, OTHER ==
[2020-01-18 21:52] LABS: #Basophils 0.1 thou/uL (0.0-0.2); #Eosinphils 0.3 thou/uL (0.0-0.7); #Lymphocytes 2.6 thou/uL (1.20-3.40); #Monocytes 0.6 thou/uL (0.11-0.59); #Neutrophils 4.1 thou/uL (1.40-6.50); %Basophils 0.7 % (0.0-1.0); %Eosinophils 3.4 % (0.0-10.0); %Monocytes 7.4 % (0.0-10.0); %Neutrophils 54.5 % (42.0-75.0); Hemoglobin 13.2 g/dL (14.0-18.0); Mean Corpuscular HGB CONC 34.7 g/dL (32.0-36.0); Mean Corpuscular Hemoglobin 36.1 pg (27.0-31.0); Mean Platelet Volume 9.3 fL (7.4-10.4); Platelet Count 169 thou/uL (130-400); RBC Distribution Width 14.4 % (11.5-14.5); Red Blood Cell (RBC) Count 3.67 mill/uL (4.70-6.10); White Blood Cell (WBC) Count 7.5 thou/uL (4.8-10.8)
[2020-01-18 22:12] LABS: Digoxin 1.04 ng/mL (0.8-2.0)
[2020-01-18 22:18] LABS: ALT (SGPT) 12 U/L (8-55); AST (SGOT) 18 U/L (5-34); Albumin 3.3 g/dL (3.4-4.8); Alkaline Phosphatase 77 U/L (40-110); Anion Gap 15 mmol/L (10-20); BUN (Urea Nitrogen) 13 mg/dL (8.4-25.7); Calc. Creatinine Clearance 0 mL/min (70-130); Carbon Dioxide 21 mmol/L (23-31); Chloride 108 mmol/L (98-107); Estimated GFR-MDRD 62; Globulin 3.2 g/dL (2.4-3.5); Glucose 119 mg/dL (83-110); Potassium 4.2 mmol/L (3.5-5.1); Protein, Total 6.5 g/dL (5.8-8.1); Sodium 140 mmol/L (136-145)
--- NOTE | 2020-01-18 22:22 | RAD ---
PORTABLE CHEST: Date: 01/18/2020 PROVIDED CLINICAL HISTORY: Weakness. FINDINGS: Comparison with 10/29/2019. Cardiac and mediastinal silhouette is unchanged in appearance. Vascular calcification involves the ao rtic arch. No focal consolidation, pleural fluid, or pneumothorax apparent. IMPRESSION: No evidence for an acute cardiopulmonary process. POS: [facility]
[2020-01-18 22:33] LABS: CKMB 2.1 ng/mL (0-6.6)
[2020-01-19] MEDS ORDERED: Acetaminophen 325 MG TAB PO PRN ×2 (00:28→09:12)
[2020-01-19] MEDS ORDERED: Acetaminophen 650 MG Suppository PR PRN (00:28)
[2020-01-19] MEDS ORDERED: Aspirin Chewable 81 MG TAB ONE (00:54)
[2020-01-19 01:07] LABS: Troponin I 0.042 ng/mL (< 0.028)
--- NOTE | 2020-01-19 01:08 | PDOC.HHP ---
Hospitalist HPI - History of Present Illness Lightheaded, near fainting episode History of Present Illness: Patient is an 89-year-old gentleman who presents to the emergency department after having a presyncopal episode. Patient states that he was standing up from bed when he suddenly felt lightheaded and had visual disturbances. States he saw blue and green spots and felt as if he was going to pass out. He has never experienced anything like this before. Denies having any associated chest pain. Has not had any trouble with his breathing. Patient states he has been in his usual state of health these recent days. Has not had any fevers chills or sweats. He was brought into the emergency department by ambulance from his assisted living. He had orthostatic BPs done and noted to have a drop in his blood pressure when standing. He reportedly had a heart rate is always in the 30s. He recently established care with Dr. Chacko as his primary care physician who he has seen once before and is scheduled to see again in the next couple weeks. Patient known to have a history of chronic A. fib and states he sees Dr. Echols. Of note last echo was done 03/10/2019. It showed severely depressed overall left ventricular function with an EF of 20 to 25%. Left atrium was mildly dilated. He had moderate aortic regurgitation and mild to moderate tricuspid regurgitation. ROS: Patient reports having COVID in September. States since then he has had issues with his memory and an occasional cough. He denies experiencing any speech changes. No extremity numbness or weakness. At baseline he uses a walker to get around. Denies any urinary symptoms or bowel changes. No changes with his appetite which he states is low at baseline. He is unsure if he maintains adequate hydration. All other review of systems are negative apart from those mentioned above in HPI. ED COURSE: In the emergency department he had an EKG which showed slow A. fib. Chest x-ray done showed no evidence for acute cardiopulmonary process. Labs notable for indeterminate troponin of 0.043. CK-MB 2.1. BNP 452.4. Glucose 119. Sodium 140, potassium 4.2, BUN 13, creatinine 1.12, GFR 62. Renal function essentially stable Digoxin level 1.04, white cell count 7.5 hemoglobin 13.2. He was given 324 mg of aspirin. PAST MEDICAL HISTORY: Duodenal ulcers Chronic A. fib Hypothyroidism Hypertension Prostate cancer, treated with radiation CHF Chronic kidney disease PAST SURGICAL HISTORY: Status post cardioversion for AFredi canchola in June 2018 Skin cancer lesion excisions Eye surgery Appendectomy Right hip replacement SOCIAL HISTORY: Patient uses a walker to get around and currently lives in an assisted living. Denies any tobacco use alcohol consumption or drug use. FAMILY HISTORY: Noncontributory ALLERGIES: Lisinopril and sulfa CURRENT MEDICATIONS: Aspirin 81 mg p.o. daily Escitalopram 10 mg p.o. daily Atorvastatin 20 mg p.o. daily Carvedilol 0.5 mg p.o. twice daily Fluticasone propionate nasal Levothyroxine 50 mcg p.o. daily Folic acid 1 mg p.o. daily Klor-Con 10 mEq p.o. daily Vitamin B12 1000 mcg p.o. daily Nystatin topical Terbinafine topical Hospitalist History - Past Surgical History Past Surgical History: reports: Appendectomy - Social History Alcohol: reports: Occassional - Exam General Appearance: NAD, awake alert General - other findings: BP 136/74, HR 65, O2 sat 94% on room air Eye: PERRL, anicteric sclera ENT: normocephalic atraumatic, no oropharyngeal lesions, moist mucosa Neck: supple, no lymphadenopathy Heart: normal peripheral pulses, irregular Respiratory: CTAB, no wheezes, normal chest expansion, no tachypnea Gastrointestinal: soft, non-tender (mild suprapubic pressure with palpation), no guarding, no rigidity Extremities: no edema Skin: normal turgor, no lesions, no rashes Neurological: cranial nerve grossly intact, no focal deficits Musculoskeletal: normal tone, normal strength, no muscle wasting Psychiatric: normal affect, normal behavior, A&O x 3 Hospitalist Results - Labs Result Diagrams: 01/18/20 21:44 01/18/20 21:44 Lab results: WBC 7.5 thou/uL (4.8-10.8) 01/18/20 21:44 Hgb 13.2 g/dL (14.0-18.0) L 01/18/20 21:44 Hct 38.2 % (42.0-52.0) L 01/18/20 21:44 MCV 104.0 fL (78.0-98.0) H 01/18/20 21:44 Plt Count 169 thou/uL (130-400) 01/18/20 21:44 Neutrophils % 54.5 % (42.0-75.0) 01/18/20 21:44 Sodium 140 mmol/L (136-145) 01/18/20 21:44 Potassium 4.2 mmol/L (3.5-5.1) 01/18/20 21:44 Chloride 108 mmol/L (98-107) H 01/18/20 21:44 Carbon Dioxide 21 mmol/L (23-31) L 01/18/20 21:44 BUN 13 mg/dL (8.4-25.7) 01/18/20 21:44 Creatinine 1.12 mg/dL (0.7-1.3) 01/18/20 21:44 Glucose 119 mg/dL (83-110) H 01/18/20 21:44 Calcium 8.0 mg/dL (7.8-10.44) 01/18/20 21:44 Total Bilirubin 1.0 mg/dL (0.2-1.2) 01/18/20 21:44 AST 18 U/L (5-34) 01/18/20 21:44 ALT 12 U/L (8-55) 01/18/20 21:44 Alkaline Phosphatase 77 U/L (40-110) 01/18/20 21:44 CK-MB (CK-2) 2.1 ng/mL (0-6.6) 01/18/20 21:44 Troponin I 0.043 ng/mL (< 0.028) H 01/18/20 21:44 B-Natriuretic Peptide 452.4 pg/mL (0-100) H 01/18/20 21:44 Serum Total Protein 6.5 g/dL (5.8-8.1) 01/18/20 21:44 Albumin 3.3 g/dL (3.4-4.8) L 01/18/20 21:44 Hospitalist H&P A/P - Problem (1) Bradycardia Code(s): R00.1 - BRADYCARDIA, UNSPECIFIED Status: Acute (2) Orthostatic lightheadedness Code(s): R42 - DIZZINESS AND GIDDINESS Status: Acute (3) Pre-syncope Status: Acute (4) Chronic a-fib Code(s): I48.20 - CHRONIC ATRIAL FIBRILLATION, UNSPECIFIED Status: Chronic (5) H/O prostate cancer Code(s): Z85.46 - PERSONAL HISTORY OF MALIGNANT NEOPLASM OF PROSTATE Status: Chronic (6) HTN (hypertension) Code(s): I10 - ESSENTIAL (PRIMARY) HYPERTENSION Status: Chronic Qualifiers: (7) Hypothyroidism Code(s): E03.9 - HYPOTHYROIDISM, UNSPECIFIED Status: Chronic - Plan Plan: Cardiac monitoring. Orthostatic BPs. Gentle hydration. Continue to trend troponins. Echo ordered. UA/UCx to rule out underlying infection. Hold Day team to decide if cardiology input needed Surrogate decision makers are his son and daughter, Marianne and Chapo Brown.
[2020-01-19] MEDS: Sodium Chloride 0.9% 1,000 ML IV SCH ×2 (02:42→23:16)
[2020-01-19 02:48] VITALS: BMI 26.5
[2020-01-19 04:19] LABS: Bacteria/HPF None Seen HPF (None Seen); Bilirubin Negative (Negative); Blood, Urine Negative (Negative); Clarity Clear (Clear); Glucose, Urine (Dipstick) Normal (Negative); Ketone, Urine Negative (Negative); Leukocyte Negative Leu/uL (Negative); Nitrite Negative (Negative); Protein, Urine (Dipstick) Negative (Neg-Trace); RBC/HPF 0-3 HPF (0-3); Specific Gravity, Urine 1.015 (1.002-1.036); Squamous Epithelial 0-3 HPF (0-3); WBC/HPF 0-3 HPF (0-3); pH, Urine 5.5 (5.0-9.0)
[2020-01-19 04:21] LABS: Urine Culture Reflex No No
[2020-01-19 04:28] LABS: Hemoglobin 13.1 g/dL (14.0-18.0); Mean Corpuscular HGB CONC 33.4 g/dL (32.0-36.0); Mean Corpuscular Hemoglobin 35.4 pg (27.0-31.0); Mean Platelet Volume 9.1 fL (7.4-10.4); Platelet Count 163 thou/uL (130-400); RBC Distribution Width 14.2 % (11.5-14.5); Red Blood Cell (RBC) Count 3.69 mill/uL (4.70-6.10); White Blood Cell (WBC) Count 7.6 thou/uL (4.8-10.8)
[2020-01-19 04:39] LABS: Troponin I 0.043 ng/mL (< 0.028)
[2020-01-19 04:46] LABS: Anion Gap 10 mmol/L (10-20); BUN (Urea Nitrogen) 13 mg/dL (8.4-25.7); Calc. Creatinine Clearance 57 mL/min (70-130); Calcium 8.5 mg/dL (7.8-10.44); Carbon Dioxide 26 mmol/L (23-31); Chloride 108 mmol/L (98-107); Estimated GFR-MDRD 66; Glucose 107 mg/dL (83-110); Potassium 3.8 mmol/L (3.5-5.1); Sodium 140 mmol/L (136-145)
[2020-01-19 05:41] LABS: #Eosinphils 0.3 thou/uL (0.0-0.7); #Monocytes 0.6 thou/uL (0.11-0.59); #Neutrophils 3.6 thou/uL (1.40-6.50); %Basophils 0.3 % (0.0-1.0); %Eosinophils 4.5 % (0.0-10.0); %Lymphocytes 39.7 % (21.0-51.0); %Neutrophils 47.4 % (42.0-75.0); MDiff Complete? YES; Macrocytosis MODERATE=16-30 cells (100X) (0-5/hpf)
[2020-01-19] MEDS ORDERED: Dextromethorphan Polistirex 30 MG/5 ML (89 ML BOTTLE) PO PRN (09:13)
[2020-01-19] MEDS ORDERED: Loratadine 10 MG TAB PO PRN (09:15)
[2020-01-19] MEDS ORDERED: hydrALAZINE 20 MG/ML VIAL SLOW IVP SCH (09:15)
[2020-01-19] MEDS ORDERED: Furosemide 40 MG TAB PO PRN (09:15)
[2020-01-19] MEDS ORDERED: Ondansetron ODT 4 MG TAB PO PRN (09:16)
[2020-01-19] MEDS ORDERED: guaiFENesin ER 600 MG TAB PO PRN (09:17)
--- NOTE | 2020-01-19 12:40 | PDOC.HOSPP ---
- Subjective Encounter Date: 01/19/20 Encounter Time: 12:38 Subjective: Seen in follow-up for presyncope. Reports feeling slightly better. - Objective Vital Signs & Weight: Vital Signs (12 hours) Temp Pulse Resp BP BP BP BP 01/19/20 11:44 97.9 F 53 L 17 147/66 H 140/55 L 189/89 H 01/19/20 10:26 57 L 149/80 H 01/19/20 07:15 98.4 F 57 L 16 182/87 H 01/19/20 04:00 97.9 F 15 177/92 H 01/19/20 01:50 01/19/20 01:45 98.6 F 86 18 168/83 H Pulse Ox 01/19/20 11:44 99 01/19/20 10:26 01/19/20 07:15 100 01/19/20 04:00 95 01/19/20 01:50 95 01/19/20 01:45 95 Weight Weight 184 lb 14.4 oz Result Diagrams: 01/19/20 04:01 01/19/20 04:02 Additional Labs: Labs and MAR reviewed by me EKG Reviewed by me: Yes (Sinus bradycardia, sinus pauses on telemetry) Hospitalist ROS - Review of Systems Cardiovascular: denies: chest pain, palpitations, orthopnea, paroxysmal noc. dyspnea, edema, light headedness Gastrointestinal: denies: nausea, vomiting, abdominal pain, diarrhea, constipation, melena, hematochezia - Medication Medications: Active Medications Generic Name Dose Route Start Last Admin Trade Name Freq PRN Reason Stop Dose Admin Sodium Chloride 1,000 mls @ 50 mls/hr 01/19/20 01:00 01/19/20 02:42 Normal Saline 0.9% IV 1,000 mls .Q20H DAVE Administration - Exam General Appearance: awake alert Eye: anicteric sclera ENT: moist mucosa Neck: supple Heart - other findings: S1, S2, bradycardia, irregular Respiratory: CTAB Gastrointestinal: soft, non-tender Extremities: no cyanosis Skin: no rashes Psychiatric: normal affect, normal behavior Hosp A/P - Plan - Problem (1) Pre-syncope Status: Acute (2) Chronic a-fib Code(s): I48.20 - CHRONIC ATRIAL FIBRILLATION, UNSPECIFIED Status: Chronic (3) H/O prostate cancer Code(s): Z85.46 - PERSONAL HISTORY OF MALIGNANT NEOPLASM OF PROSTATE Status: Chronic (4) HTN (hypertension) Code(s): I10 - ESSENTIAL (PRIMARY) HYPERTENSION Status: Chronic Qualifiers: (5) Hypothyroidism Code(s): E03.9 - HYPOTHYROIDISM, UNSPECIFIED Status: Chronic - Plan Plan: Hold Coreg and digoxin. Continue IV hydration. Echo report pending Patient will likely need pacemaker if there is no clinical improvement.
[2020-01-19 13:48] LABS: SARS-CoV-2 MS2 Positive; SARS-CoV-2 N Gene Negative; SARS-CoV-2 S Gene Negative; SARS-CoV-2 by NAA Not Detected (NotDetected); SARS-CoV-2 orf1ab Negative
--- NOTE | 2020-01-19 14:31 | CON ---
DATE OF CONSULTATION: 01/19/2020 REASON FOR CONSULTATION: Bradycardia. PRIMARY GUN SYNCHRONIZER: Dr. Marilyn Echols. HISTORY OF PRESENT ILLNESS: Mr. Brown is a very pleasant 89-year-old white gentleman, who comes to the hospital for presyncopal spell. He was at home, stood up, felt like he was going to pass out, so he had to sit back down. He was diagnosed with COVID-19 back in September. He is in chronic atrial fibrillation at that time, he was in rapid ventricular response. He was started on digoxin on top of his beta john, slowed down nicely and eventually sent home. He comes in with heart rate in the 40s to 30s at times, but is really in atrial fibrillation anywhere from 40 to 70 or 80. On my evaluation, he feels well. He is wondering when he can go home. PAST MEDICAL HISTORY: 1. Prostate cancer. 2. Chronic atrial fibrillation. 3. Duodenal ulcers. 4. Hypertension. 5. Hypothyroidism. 6. Nonischemic cardiomyopathy, EF at 20% to 25%. 7. Detached retina. 8. Nonsustained VT in the past. SURGICAL HISTORY: 1. Appendectomy. 2. Hip replacement. 3. Eye surgery. 4. Skin cancer lesion removal. 5. Coronary artery disease [id number] on heart catheterization in June of 2018. FAMILY HISTORY: Noncontributory. SOCIAL HISTORY: No alcohol, tobacco, or drugs. Lives in assisted living. OUTPATIENT MEDICATIONS: 1. Guaifenesin. 2. Terbinafine. 3. Potassium chloride 10 mEq a day. 4. Zofran. 5. Claritin p.r.n. 6. Levothyroxine. 7. Lasix 40 mg a day as needed. 8. Folic acid. 9. Flonase. 10. Lexapro. 11. Digoxin 0.125 daily. 12. Cough DM. 13. Coreg 6.25 b.i.d. 14. Atorvastatin 20 mg at bedtime. 15. Aspirin 81 a day. 16. Tylenol p.r.n. ALLERGIES: 1. SULFA DRUGS. 2. LISINOPRIL. 3. AVOCADO. REVIEW OF SYSTEMS: A 12-point review of systems was done and was found to be negative other than stated in the history of present illness. PHYSICAL EXAMINATION: VITAL SIGNS: Temperature 97.9. Pulse 53, down to 40. Respiratory rate 17, saturating 99% on room air. Blood pressure 147/66 sitting and 189/89 supine, so he drops points. GENERAL: Awake, alert, and oriented x3, in no distress. HEENT: Normocephalic and atraumatic. NECK: Supple. LUNGS: Clear. CARDIOVASCULAR: S1 and S2. No S3 or S4. There is a grade 2/6 systolic murmur at the right upper sternal border. ABDOMEN: Soft, positive bowel sounds. EXTREMITIES: No edema. SKIN: Warm and dry. LABORATORY DATA: Laboratory work was reviewed. Sodium 140, potassium 4.2, chloride 108, carbon dioxide 21, anion gap of 15, BUN 13, creatinine 1.12, GFR of 62, glucose of 119. Troponin is 0.04 and 0.04. BNP was 452. Albumin of 3.3. UA was very unremarkable. Digoxin level was therapeutic. ASSESSMENT: 1. Symptomatic bradycardia. 2. Atrial fibrillation with slow ventricular response. 3. Nonischemic cardiomyopathy, EF at about 20% to 25% on last echocardiogram. 4. [id number] coronary artery disease. PLAN: 1. Currently, he would have to stop digoxin and Coreg to assess his need for pacemaker in the setting of symptomatic bradycardia. However, he has an indication for an AICD in the setting of having a reduced ejection fraction. At this time, we are going to plan on holding beta john and digoxin. We are going to repeat an echocardiogram, and if EF remains low, he may be a candidate for an AICD instead of just a pacemaker. 2. Mr. Brown would be in agreement to doing a pacemaker/defibrillator if needed. His biggest concern is trying to get out of the hospital as soon as possible. 3. We will give him full dose Lovenox for stroke prophylaxis for his atrial fibrillation, and long-term anticoagulation can be decided before leaving the hospital. Thank you for letting us to participate in the care of your patient. Dr. Echols, his primary wheelchair van operator first responder will follow up in the morning. Job ID: [id number]
[2020-01-19] MEDS: Atorvastatin Calcium 20 MG TAB PO SCH (20:27)
[2020-01-19] MEDS: Enoxaparin Sodium 80 MG/0.8 ML SYRINGE SC SCH (20:27)
[2020-01-19] MEDS ORDERED: Melatonin 3 MG TAB PO SCH (23:15)
[2020-01-20] MEDS: Levothyroxine Sodium 50 MCG TAB PO SCH (05:31)
[2020-01-20] MEDS ORDERED: Electrolyte Replacement Protoc 1 EACH EACH FS ONE (08:08)
[2020-01-20] MEDS ORDERED: Atropine Sulfate 1 mg/1 ml Vial IVP PRN (08:25)
[2020-01-20] MEDS ORDERED: Electrolyte Replacement Protocol FS PRN (08:30)
--- NOTE | 2020-01-20 08:42 | PDOC.CPN ---
- Subjective Date: 01/20/20 Time: 08:47 Interval history: The pt seen and examined. No overnight events. No cardiac complaints. - Objective Allergies/Adverse Reactions: Allergies Allergy/AdvReac Type Severity Reaction Status Date / Time avocado Allergy Verified 10/29/19 14:02 lisinopril Allergy Verified 10/29/19 14:02 Sulfa (Sulfonamide Allergy Verified 10/29/19 14:02 Antibiotics) Visit Medications: Current Medications Acetaminophen (Tylenol) 650 mg MD Q4H PRN PRN Reason: Headache/Fever/Mild Pain (1-3) Acetaminophen (Tylenol) 650 mg PO Q6H PRN PRN Reason: Headache/Fever or Pain Aspirin (Aspirin Chewable) 81 mg PO DAILY [facility] Atorvastatin Calcium (Lipitor) 20 mg PO HS [facility] Last Admin: 01/19/20 20:27 Dose: 20 mg Atropine Sulfate (Atropine) 0.5 mg IVP ASDIR PRN PRN Reason: Sustained Bradycardia HR < 30 Cyanocobalamin (Vitamin B-12) 1,000 mcg PO DAILY [facility] Dextromethorphan Polistirix (Delsym) 60 mg PO Q12H PRN PRN Reason: Cough Enoxaparin Sodium (Lovenox) 80 mg SC 0900,2100 [facility] Last Admin: 01/19/20 20:27 Dose: 80 mg Escitalopram Oxalate (Lexapro) 10 mg PO DAILY [facility] Fluticasone Propionate (Flonase Nasal [place]) 0 gm NASAL DAILY [facility] Folic Acid (Folvite) 1 mg PO DAILY [facility] Furosemide (Lasix) 40 mg PO DAILYPRN PRN PRN Reason: EDEMA Guaifenesin (Mucinex) 600 mg PO Q12H PRN PRN Reason: COUGH Sodium Chloride (Normal Saline 0.9%) 1,000 mls @ 50 mls/hr IV .Q20H [facility] Last Admin: 01/19/20 23:16 Dose: 1,000 mls Magnesium Sulfate 2 gm/ Device 50 mls @ 100 mls/hr IVPB NOW [facility] Stop: 01/20/20 12:00 Levothyroxine Sodium (Synthroid) 50 mcg PO 0600 [facility] Last Admin: 01/20/20 05:31 Dose: 50 mcg Loratadine (Claritin) 10 mg PO DAILYPRN PRN PRN Reason: ALLERGY Melatonin (Melatonin) 3 mg PO HS [facility] Miscellaneous Medication (Electrolyte Replacement Protocol) 0 each FS ASDIR PRN ; Protocol PRN Reason: ELECTROLYTE REPLACEMENT Multivitamins (Theragran) 1 tab PO DAILY [facility] Ondansetron HCl (Zofran Odt) 4 mg PO Q6H PRN PRN Reason: Nausea/Vomiting Potassium Chloride (Klor-Con 10) 10 meq PO DAILY [facility] Sodium Chloride (Flush - Normal Saline) 10 ml IVF Q12HR PRN PRN Reason: Saline Flush Sodium Chloride (Flush - Normal Saline) 10 ml IVF PRN PRN PRN Reason: Saline Flush Terbinafine HCl (Lamisil 1% Cream) 0 gm TOP DAILY [facility] Vital Signs & Weight: Vital Signs Temp Pulse Resp BP BP Pulse Ox 01/20/20 07:25 98.6 F 56 L 14 166/90 H 96 01/20/20 03:46 98.2 F 65 18 156/76 H 97 01/19/20 23:22 74 170/87 H Weight 184 lb 14.4 oz - Physical Exam General: alert & oriented x3 HEENT: mucus membranes moist Neck: supple neck Cardiac: irregularly regular Lungs: clear to auscultation Extremities: no edema - Labs Result Diagrams: 01/19/20 04:01 01/19/20 04:02 Troponin/CKMB CK-MB (CK-2) 2.1 ng/mL (0-6.6) 01/18/20 21:44 Troponin I 0.043 ng/mL (< 0.028) H 01/19/20 04:02 - Telemetry Supraventricular conduction: atrial fibrillation - Assessment/Plan Assessment/Plan: 1. Symptomatic bradycardia with s/p pause 3.4 sec pause on 01/19/2020 - plan for PM placement by Dr Echols 2. Chronic afib - stable HR; on ASA only due to hx of multiple falls 3. HTN - 4. Non-ischemic CMY - stable 5. HLD - on Lipitor 6. Hypothyroidism MAR reviewed * Echo on 01/19/2020 with EF 50-55%, mod LAE and ANTONIO, mild-mod TR, mild MR, AR, and MD Pt. seen and eval. by me. I spoke to the pt. and his son. I discussed the indication for the pacemaker and the risks. He understands and agrees for pacemaker insertion. Plan for later today. fany
[2020-01-20] MEDS ORDERED: Magnesium 2 GM/50 ML 2 GM in Premix Bag 1 BAG IVPB SCH (08:45)
[2020-01-20] MEDS: Folic Acid 1 MG TAB PO SCH (08:52)
[2020-01-20] MEDS: Aspirin Chewable 81 MG TAB PO SCH (08:53)
[2020-01-20] MEDS: Escitalopram Oxalate 10 mg Tablet PO SCH (08:53)
[2020-01-20] MEDS: Multivit, Therapeutic 1 TAB PO SCH (08:54)
[2020-01-20] MEDS: Fluticasone Propionate Nasal Spray 16 gm Bottle NASAL SCH (08:54)
[2020-01-20] MEDS: Cyanocobalamin (Vitamin B-12) 1,000 MCG TAB PO SCH (08:54)
[2020-01-20] MEDS: Terbinafine 1% 30 GM TUBE TOP SCH (08:55)
[2020-01-20] MEDS ORDERED: Potassium Chloride 10 MEQ TAB PO SCH (09:00)
[2020-01-20 09:02] LABS: Anion Gap 13 mmol/L (10-20); BUN (Urea Nitrogen) 12 mg/dL (8.4-25.7); Calc. Creatinine Clearance 67 mL/min (70-130); Calcium 8.1 mg/dL (7.8-10.44); Carbon Dioxide 22 mmol/L (23-31); Chloride 109 mmol/L (98-107); Estimated GFR-MDRD 80; Glucose 94 mg/dL (83-110); Magnesium 1.6 mg/dL (1.6-2.6); Potassium 3.5 mmol/L (3.5-5.1); Sodium 140 mmol/L (136-145)
[2020-01-20] MEDS: Enoxaparin Sodium 80 MG/0.8 ML SYRINGE SC SCH (09:16)
[2020-01-20] MEDS ORDERED: Potassium Chloride 20 MEQ TAB PO SCH (09:45)
[2020-01-20] MEDS: Potassium Chloride 10 MEQ TAB PO SCH ×2 (11:25→15:57)
[2020-01-20] MEDS ORDERED: hydrALAZINE 20 MG/ML VIAL SLOW IVP PRN (15:27)
[2020-01-20] MEDS ORDERED: Gentamicin 80 MG/2 ML VIAL ONE (16:33)
[2020-01-20] MEDS ORDERED: CEFAZOLIN 1 GM VIAL ONE (16:33)
[2020-01-20] MEDS: Sodium Chloride 0.9% 1,000 ML IV SCH (17:49)
[2020-01-20] MEDS ORDERED: Loratadine 10 MG TAB PO PRN (17:52)
[2020-01-20] MEDS ORDERED: hydrALAZINE 20 MG/ML VIAL SLOW IVP SCH (18:00)
--- NOTE | 2020-01-20 18:07 | RAD ---
Exam: Chest one view HISTORY:Status post cardiac device placement Comparison: 01/18/2020 FINDINGS: Cardiac silhouette:Enlarged cardiac silhouette. Aorta: Atherosclerosis Pulmonary vessels: Normal Costophrenic angles: Clear LUNGS: Chronic changes. No masses or consolidation Pacing device: Interval placement of a single lead left-sided transvenous pacemaker. Lead position ap pears to be in the region of the right ventricle. Pneumothorax: None Osseous abnormalities: None IMPRESSION: 1. Interval placement of a left-sided transvenous pacemaker as detailed above. 2. No pneumothorax.
[2020-01-20] MEDS: Atorvastatin Calcium 20 MG TAB PO SCH (20:21)
[2020-01-20] MEDS: Carvedilol 6.25 MG TAB PO SCH (20:21)
[2020-01-20] MEDS ORDERED: Melatonin 3 MG TAB PO SCH (21:00)
--- NOTE | 2020-01-20 21:47 | PDOC.HOSPP ---
- Subjective Encounter Date: 01/20/20 Encounter Time: 10:30 Subjective: Patient seen and examined for lightheadedness/near syncope. Feels generally weak. No chest pain reported. No new focal deficit. - Objective Vital Signs & Weight: Vital Signs (12 hours) Temp Pulse Resp BP BP Pulse Ox 01/20/20 18:05 70 183/90 H 01/20/20 15:52 57 L 185/95 H 01/20/20 15:22 57 L 01/20/20 15:21 97.8 F 177/91 H 01/20/20 15:03 72 20 169/96 H 97 01/20/20 11:21 97.5 F L 49 L 14 165/75 H 96 Weight Weight 184 lb 14.4 oz I&O: 01/19/20 01/20/20 01/21/20 06:59 06:59 06:59 Intake Total 1680 600 Output Total 4 175 Balance 1676 425 Result Diagrams: 01/19/20 04:01 01/20/20 08:27 EKG Reviewed by me: Yes (Sinus pauses with Atrial fibrillation) Hospitalist ROS - Review of Systems Respiratory: denies: cough, dry, shortness of breath, hemoptysis, SOB with excertion, pleuritic pain, sputum, wheezing, other Cardiovascular: reports: light headedness. denies: chest pain, palpitations, orthopnea, paroxysmal noc. dyspnea, edema, other - Medication Medications: Active Medications Generic Name Dose Route Start Last Admin Trade Name Freq PRN Reason Stop Dose Admin Aspirin 81 mg 01/20/20 09:00 01/20/20 08:53 Aspirin Chewable PO 81 mg DAILY DAVE Administration Atorvastatin Calcium 20 mg 01/19/20 21:00 01/20/20 20:21 Lipitor PO 20 mg HS DAVE Administration Carvedilol 6.25 mg 01/20/20 21:00 01/20/20 20:21 Coreg PO 6.25 mg BID DAVE Administration Cyanocobalamin 1,000 mcg 01/20/20 09:00 01/20/20 08:54 Vitamin B-12 PO 1,000 mcg DAILY [facility]AVE Administration Escitalopram Oxalate 10 mg 01/20/20 09:00 01/20/20 08:53 Lexapro PO 10 mg DAILY [facility] Administration Fluticasone Propionate 0 gm 01/20/20 09:00 01/20/20 08:54 Flonase Nasal [place] NASAL 2 spr DAILY DAVE Administration Folic Acid 1 mg 01/20/20 09:00 01/20/20 08:52 Folvite PO 1 mg DAILY [facility] Administration Hydralazine HCl 5 mg 01/20/20 15:27 01/20/20 15:52 Apresoline SLOW IVP 5 mg Q4H PRN Administration SBP GREATER THAN 160 Sodium Chloride 1,000 mls @ 50 mls/hr 01/19/20 01:00 01/20/20 17:49 Normal Saline 0.9% IV 1,000 mls .Q20H [facility]AVE Administration Levothyroxine Sodium 50 mcg 01/20/20 06:00 01/20/20 05:31 Synthroid PO 50 mcg 0600 [facility] Administration Melatonin 3 mg 01/20/20 21:00 01/20/20 20:21 Melatonin PO 3 mg HS DAVE Administration Multivitamins 1 tab 01/20/20 09:00 01/20/20 08:54 Theragran PO 1 tab DAILY [facility] Administration Potassium Chloride 10 meq 01/20/20 12:00 01/20/20 15:57 Klor-Con 10 PO 10 meq TID-WM DAVE Administration Sodium Chloride 10 ml 01/20/20 09:00 01/20/20 20:21 Flush - Normal Saline IVF 10 ml Q12HR DAVE Administration Terbinafine HCl 0 gm 01/20/20 09:00 01/20/20 08:55 Lamisil 1% Cream TOP 1 applic DAILY DAVE Administration - Exam General Appearance: NAD Neck: supple, no JVD Heart: RRR, no gallops Respiratory: no wheezes, no ronchi Gastrointestinal: soft, non-distended Extremities: no cyanosis Neurological: no new deficit Musculoskeletal: generalized weakness Psychiatric: normal affect, A&O x 3 Hosp A/P - Plan Generalized weakness/lightheadedness/near syncope Symptomatic bradycardia with sinus pauses Chronic atrial fibrillation on aspirin (due to history of multiple falls) 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 Hold beta-blockers. Replace magnesium and potassium. Continue telemetry monitoring. Digoxin on hold. Discontinue IV fluid after pacemaker. Recheck labs in a.m.
[2020-01-21 04:14] LABS: #Eosinphils 0.4 thou/uL (0.0-0.7); #Monocytes 0.5 thou/uL (0.11-0.59); #Neutrophils 4.4 thou/uL (1.40-6.50); %Basophils 0.1 % (0.0-1.0); %Lymphocytes 27.8 % (21.0-51.0); %Monocytes 6.9 % (0.0-10.0); %Neutrophils 60.3 % (42.0-75.0); Hemoglobin 12.7 g/dL (14.0-18.0); Mean Corpuscular HGB CONC 33.8 g/dL (32.0-36.0); Platelet Count 159 thou/uL (130-400); RBC Distribution Width 14.2 % (11.5-14.5); Red Blood Cell (RBC) Count 3.64 mill/uL (4.70-6.10); White Blood Cell (WBC) Count 7.2 thou/uL (4.8-10.8)
[2020-01-21 04:40] LABS: Anion Gap 13 mmol/L (10-20); BUN (Urea Nitrogen) 12 mg/dL (8.4-25.7); Calc. Creatinine Clearance 69 mL/min (70-130); Calcium 8.3 mg/dL (7.8-10.44); Carbon Dioxide 20 mmol/L (23-31); Chloride 110 mmol/L (98-107); Estimated GFR-MDRD 82; Glucose 111 mg/dL (83-110); Magnesium 2.1 mg/dL (1.6-2.6); Potassium 4.2 mmol/L (3.5-5.1); Sodium 139 mmol/L (136-145)
[2020-01-21] MEDS: Levothyroxine Sodium 50 MCG TAB PO SCH (06:05)
[2020-01-21] MEDS ORDERED: Potassium Chloride 10 MEQ TAB PO SCH (08:00)
[2020-01-21] MEDS: Terbinafine 1% 30 GM TUBE TOP SCH ×2 (08:28→08:37)
[2020-01-21] MEDS: Folic Acid 1 MG TAB PO SCH (08:28)
[2020-01-21] MEDS: Aspirin Chewable 81 MG TAB PO SCH (08:28)
[2020-01-21] MEDS: Carvedilol 6.25 MG TAB PO SCH (08:28)
[2020-01-21] MEDS: Escitalopram Oxalate 10 mg Tablet PO SCH (08:28)
[2020-01-21] MEDS: Cyanocobalamin (Vitamin B-12) 1,000 MCG TAB PO SCH (08:28)
[2020-01-21] MEDS: Multivit, Therapeutic 1 TAB PO SCH (08:28)
[2020-01-21] MEDS: Fluticasone Propionate Nasal Spray 16 gm Bottle NASAL SCH (08:29)
--- NOTE | 2020-01-21 09:46 | PDOC.CPN ---
- Subjective Date: 01/21/20 Time: 08:30 Interval history: The pt seen and examined. No overnight events. No cardiac complaints. Positive Orthostatic hypotension at 0400 this AM; The pt was asymptomatic; Per the pt, he can think clear after S/p PM placement. - Objective Allergies/Adverse Reactions: Allergies Allergy/AdvReac Type Severity Reaction Status Date / Time avocado Allergy Verified 10/29/19 14:02 lisinopril Allergy Verified 10/29/19 14:02 Sulfa (Sulfonamide Allergy Verified 10/29/19 14:02 Antibiotics) Visit Medications: Current Medications Acetaminophen (Tylenol) 650 mg [place] Q4H PRN PRN Reason: Headache/Fever/Mild Pain (1-3) Acetaminophen (Tylenol) 650 mg PO Q6H PRN PRN Reason: Headache/Fever or Pain Aspirin (Aspirin Chewable) 81 mg PO DAILY [facility] Last Admin: 01/21/20 08:28 Dose: 81 mg Atorvastatin Calcium (Lipitor) 20 mg PO HS [facility] Last Admin: 01/20/20 20:21 Dose: 20 mg Carvedilol (Coreg) 6.25 mg PO BID [facility] Last Admin: 01/21/20 08:28 Dose: 6.25 mg Cyanocobalamin (Vitamin B-12) 1,000 mcg PO DAILY [facility] Last Admin: 01/21/20 08:28 Dose: 1,000 mcg Dextromethorphan Polistirix (Delsym) 60 mg PO Q12H PRN PRN Reason: Cough Escitalopram Oxalate (Lexapro) 10 mg PO DAILY [facility] Last Admin: 01/21/20 08:28 Dose: 10 mg Fluticasone Propionate (Flonase Nasal [place]) 0 gm NASAL DAILY [facility] Last Admin: 01/21/20 08:29 Dose: 2 spr Folic Acid (Folvite) 1 mg PO DAILY [facility] Last Admin: 01/21/20 08:28 Dose: 1 mg Furosemide (Lasix) 40 mg PO DAILYPRN PRN PRN Reason: EDEMA Guaifenesin (Mucinex) 600 mg PO Q12H PRN PRN Reason: COUGH Hydralazine HCl (Apresoline) 5 mg SLOW IVP Q4H PRN PRN Reason: SBP GREATER THAN 160 Last Admin: 01/20/20 15:52 Dose: 5 mg Levothyroxine Sodium (Synthroid) 50 mcg PO 0600 [facility] Last Admin: 01/21/20 06:05 Dose: 50 mcg Loratadine (Claritin) 10 mg PO DAILYPRN PRN PRN Reason: ALLERGY Loratadine (Claritin) 10 mg PO DAILY PRN PRN Reason: Allergies Melatonin (Melatonin) 3 mg PO HS [facility] Last Admin: 01/20/20 20:21 Dose: 3 mg Miscellaneous Medication (Electrolyte Replacement Protocol) 0 each FS ASDIR PRN ; Protocol PRN Reason: ELECTROLYTE REPLACEMENT Multivitamins (Theragran) 1 tab PO DAILY [facility] Last Admin: 01/21/20 08:28 Dose: 1 tab Ondansetron HCl (Zofran Odt) 4 mg PO Q6H PRN PRN Reason: Nausea/Vomiting Potassium Chloride (Klor-Con 10) 10 meq PO QAM-WM [facility] Last Admin: 01/21/20 08:27 Dose: 10 meq Sodium Chloride (Flush - Normal Saline) 10 ml IVF Q12HR [facility] Last Admin: 01/21/20 08:29 Dose: 10 ml Sodium Chloride (Flush - Normal Saline) 10 ml IVF PRN PRN PRN Reason: Saline Flush Terbinafine HCl (Lamisil 1% Cream) 0 gm TOP DAILY [facility] Last Admin: 01/21/20 08:37 Dose: Not Given Vital Signs & Weight: Vital Signs Temp Pulse Resp BP BP BP BP 01/21/20 08:43 01/21/20 07:28 98.1 F 70 17 165/83 H 01/21/20 05:00 124/61 119/59 L 163/83 H 01/21/20 03:56 98.4 F 70 18 153/78 H 01/21/20 00:01 76 17 Pulse Ox 01/21/20 08:43 94 L 01/21/20 07:28 94 L 01/21/20 05:00 01/21/20 03:56 93 L 01/21/20 00:01 Weight 184 lb 14.4 oz - Physical Exam General: alert & oriented x3 HEENT: mucus membranes moist Neck: supple neck Cardiac: regular rate and rhythm Lungs: clear to auscultation, decreased breath sounds Neuro: cranial nerve 2-12 intact Extremities: no edema Skin: other (PM site is TAI without any drainage, warmness or pain to touch the site; mild erythema and swelling) Musculoskeletal: normal range of motion - Labs Result Diagrams: 01/21/20 04:04 01/21/20 04:04 Troponin/CKMB CK-MB (CK-2) 2.1 ng/mL (0-6.6) 01/18/20 21:44 Troponin I 0.043 ng/mL (< 0.028) H 01/19/20 04:02 - Telemetry Sinus rhythms and dysrhythmias: other (AV paced) - Assessment/Plan Assessment/Plan: 1. Symptomatic bradycardia with s/p pause 3.4 sec pause on 01/19/2020 - S/p PM placement on 01/20/2020 2. Chronic afib - stable HR; on ASA only due to hx of multiple falls 3. Orthostatic Hypertension - per the pt, he was asymptomatic during the assessment early this AM; will repeat another ortho BP this AM 4. Non-ischemic CMY - stable 5. HLD - on Lipitor 6. Hypothyroidism MAR reviewed * Echo on 01/19/2020 with EF 50-55%, mod LAE and ANTONIO, mild-mod TR, mild MR, AR, and [place] * From Cardiac standpoint, the pt is stable to d/christine if his 2nd orthostatic BP is stable * The pt can send the PM site pic to Dr Echols' office in 10 days and f/u in the office in 02/2020 as schedule for hospital f/u and 3 months f/u in the office for initial PM interrogation Pt. seen and eval. by me. I agree with the A/P by the BUSINESS SYSTEMS CONSULTANT. He denies any c/o's. More alert today. Pacer site looks good. CXR: no pneumo or hemothorax.Chest clear. RRR. Pacing at 70bpm.
--- NOTE | 2020-01-21 11:58 | PDOC.HOSPP ---
- Subjective Encounter Date: 01/21/20 Encounter Time: 10:00 Subjective: Seen and examined for symptomatic bradycardia. Denies any lightheadedness or dizziness on standing. RN reported positive orthostatic vitals, however patient is asymptomatic on standing. - Objective Vital Signs & Weight: Vital Signs (12 hours) Temp Pulse Pulse Pulse Resp BP BP 01/21/20 11:14 01/21/20 11:11 72 01/21/20 11:07 98.8 F 78 17 01/21/20 09:16 70 71 147/79 H 172/86 H 01/21/20 08:43 01/21/20 07:28 98.1 F 70 17 01/21/20 05:00 01/21/20 03:56 98.4 F 70 18 01/21/20 00:01 76 17 BP BP BP BP Pulse Ox 01/21/20 11:14 116/55 L 01/21/20 11:11 113/58 L 01/21/20 11:07 136/73 95 01/21/20 09:16 01/21/20 08:43 94 L 01/21/20 07:28 165/83 H 94 L 01/21/20 05:00 124/61 119/59 L 163/83 H 01/21/20 03:56 153/78 H 93 L 01/21/20 00:01 Weight Weight 184 lb 14.4 oz I&O: 01/20/20 01/21/20 01/22/20 06:59 06:59 06:59 Intake Total 1680 1330 Output Total 4 175 Balance 1676 1155 Result Diagrams: 01/21/20 04:04 01/21/20 04:04 EKG Reviewed by me: Yes (Paced rhythm on telemetry) Hospitalist ROS - Review of Systems Respiratory: denies: cough, dry, shortness of breath, hemoptysis, SOB with excertion, pleuritic pain, sputum, wheezing, other Cardiovascular: denies: chest pain, palpitations, orthopnea, paroxysmal noc. dyspnea, edema, light headedness, other - Medication Medications: Active Medications Generic Name Dose Route Start Last Admin Trade Name Freq PRN Reason Stop Dose Admin Aspirin 81 mg 01/20/20 09:00 01/21/20 08:28 Aspirin Chewable PO 81 mg DAILY DAVE Administration Atorvastatin Calcium 20 mg 01/19/20 21:00 01/20/20 20:21 Lipitor PO 20 mg HS DAVE Administration Carvedilol 6.25 mg 01/20/20 21:00 01/21/20 08:28 Coreg PO 6.25 mg BID DAVE Administration Cyanocobalamin 1,000 mcg 01/20/20 09:00 01/21/20 08:28 Vitamin B-12 PO 1,000 mcg DAILY DAVE Administration Escitalopram Oxalate 10 mg 01/20/20 09:00 01/21/20 08:28 Lexapro PO 10 mg DAILY DAVE Administration Fluticasone Propionate 0 gm 01/20/20 09:00 01/21/20 08:29 Flonase Nasal [place] NASAL 2 spr DAILY DAVE Administration Folic Acid 1 mg 01/20/20 09:00 01/21/20 08:28 Folvite PO 1 mg DAILY DAVE Administration Hydralazine HCl 5 mg 01/20/20 15:27 01/20/20 15:52 Apresoline SLOW IVP 5 mg Q4H PRN Administration SBP GREATER THAN 160 Levothyroxine Sodium 50 mcg 01/20/20 06:00 01/21/20 06:05 Synthroid PO 50 mcg 0600 DAVE Administration Melatonin 3 mg 01/20/20 21:00 01/20/20 20:21 Melatonin PO 3 mg HS DAVE Administration Multivitamins 1 tab 01/20/20 09:00 01/21/20 08:28 Theragran PO 1 tab DAILY DAVE Administration Potassium Chloride 10 meq 01/21/20 08:00 01/21/20 08:27 Klor-Con 10 PO 10 meq QAM-WM DAVE Administration Sodium Chloride 10 ml 01/20/20 09:00 01/21/20 08:29 Flush - Normal Saline IVF 10 ml Q12HR DAVE Administration Terbinafine HCl 0 gm 01/20/20 09:00 01/21/20 08:37 Lamisil 1% Cream TOP Not Given DAILY DAVE - Exam General Appearance: NAD Heart: RRR, no gallops Respiratory: no wheezes, no ronchi Gastrointestinal: soft, non-distended Extremities: no cyanosis Neurological: no new deficit Hosp A/P - Plan DVT proph w/SCDs Generalized weakness/lightheadedness/near syncope Symptomatic bradycardia with sinus pauses Chronic atrial fibrillation on aspirin (due to history of multiple falls) 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 Cardiology is aware of slightly positive orthostatic vital signshowever they recommended to continue current dose of carvedilol since patient can become severely hypertensive. Continue current medications. Digoxin will be resumed. Patient currently lives at assisted living facility. Family is requesting inpatient rehabilitation. Will consult case reviewer for assistance. 01/19 Plan for pacemaker today. Hold beta-blockers. Replace magnesium and potassium. Continue telemetry monitoring. Digoxin on hold. Discontinue IV fluid after pacemaker. Recheck labs in a.m.
[2020-01-21 15:26] VITALS: BP 150/80; TEMP 98.1
--- NOTE | 2020-01-21 17:14 | DIS ---
DATE OF ADMISSION: 01/19/2020 DATE OF DISCHARGE: 01/21/2020 DISCHARGE DISPOSITION: Assisted living facility. Home health care will be arranged. Fall precaution was emphasized. DISCHARGE MEDICATIONS: Same as admission medication. No changes in medications were made per Cardiology recommendation. The patient was seen and examined on the day of discharge. Denies any new complaints. No chest pain, shortness of breath, or palpitations reported. BRIEF HOSPITAL COURSE: The patient is an 89-year-old male, currently residing at assisted living facility, presented to the emergency room on January 19, 2020, with lightheadedness and near syncope. He was found to have heart rate in 30s. He was also found to have sinus pauses up to 3.4 seconds. Pacemaker was placed yesterday without any complication. The patient has a long history of orthostatic hypotension. His orthostatic vitals were positive. Cardiology, however, recommended to continue current dose of carvedilol and recommended close monitoring. Home health care will be arranged. Inpatient rehab was offered; however, the patient declined. The patient has a history of recurrent falls and is not a candidate for anticoagulation for atrial fibrillation. He has been cleared by Cardiology for discharge. FINAL DIAGNOSES: 1. Generalized weakness/lightheadedness/near syncope due to symptomatic bradycardia with sinus pauses, status post pacemaker placement. 2. Chronic atrial fibrillation, on aspirin due to history of multiple falls. 3. 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 4. Chronic kidney disease stage 2. 5. History of prostate cancer. 6. History of orthostatic hypotension. 7. History of vitamin B12 deficiency. The patient was advised to start vitamin B12 supplementation [id number]. 8. Hypokalemia, replaced. 9. Hypomagnesemia, replaced. The patient understands the above plan of care. Fall precaution was re-emphasized. Job ID: [id number]
[2020-01-22] MEDS ORDERED: Digoxin 0.125 MG TAB PO SCH (09:00)
--- NOTE | 2020-01-23 07:32 | CCLSPC ---
INDICATION FOR PROCEDURE: An 89-year-old patient with symptomatic bradycardia with pauses greater than 3 seconds. He has a chronic atrial fibrillation. He was advised to undergo pacemaker insertion. He was taken to cardiac quality control lab technician where it was performed today without difficulties or complications. He was implanted with a single-chamber pacemaker from [employer] and Lisa SR MRI compatible device with one screw-in lead in the right ventricle. There were no complications or difficulties encountered. The patient tolerated the procedure well. The pacemaker was set with the upper rate of 130 and the lower rate was set at 70. Job ID: [id number]
== END 2020-01-21 16:10 | disposition home health service (06) | DRG 243 ==
LOC: ERS 21:17 → 2NO 01-19 00:27
PROVIDERS: ADMIT Internal Medicine; ATTEND Internal Medicine
PROC: 0JH604Z Insertion of Pacemaker, Single Chamber into Chest Subcutaneous Tissue and Fascia, Open Approach (ICD-10-PCS; principal; 2020-01-20)
PROC: 02HK3JZ Insertion of Pacemaker Lead into Right Ventricle, Percutaneous Approach (ICD-10-PCS; 2020-01-20)
DX: R00.1 Bradycardia, unspecified (principal); I13.0 Hypertensive heart and chronic kidney disease with heart failure and stage 1 through stage 4 chronic kidney disease, or unspecified chronic kidney disease; I50.42 Chronic combined systolic (congestive) and diastolic (congestive) heart failure; N18.2 Chronic kidney disease, stage 2 (mild); E03.9 Hypothyroidism, unspecified; E53.8 Deficiency of other specified B group vitamins; Z96.641 Presence of right artificial hip joint; I48.20 Chronic atrial fibrillation, unspecified; I42.8 Other cardiomyopathies; I95.1 Orthostatic hypotension; E87.6 Hypokalemia; E83.42 Hypomagnesemia; Z88.8 Allergy status to other drugs, medicaments and biological substances; Z92.3 Personal history of irradiation; Z90.49 Acquired absence of other specified parts of digestive tract; Z85.46 Personal history of malignant neoplasm of prostate; Z79.82 Long term (current) use of aspirin; Z79.899 Other long term (current) drug therapy; Z88.2 Allergy status to sulfonamides
CPT/HCPCS: 33207; 36415; 71045; 80048; 80053; 80162; 81001; 82553; 83735; 83880; 84484; 85025; 87635; 90471; 90732; 93005; 93306; C1785; C1898; G0009; J0360; J0690; J1580; J1650; J3475; U0003

== ENCOUNTER 2020-02-13 16:28 | Inpatient (IN) | payer MEDICARE, BC, OTHER ==
[~2020-02-13 16:28] MED LIST: Iopamidol-370 76% 500 ML 1 ML ONE
--- NOTE | 2020-02-13 16:39 | CT ---
Exam: Head CT without contrast HISTORY: Level 1 stroke. Right-sided weakness and facial droop. Blurred oriented x0 COMPARISON: 03/24/2019 FINDINGS: Hemorrhage: No intraparenchymal hemorrhage or extra-axial hematoma. Brain parenchyma: Cortical asif-white matter differentiation is preserved. No mass effect or midline shift. Basilar cisterns are patent.Chronic small vessel ischemic changes of the white matter Ventricular system: Ventricles and sulci are patent and symmetric. Calvarium: Intact. Sinuses and mastoid air cells: Adequate aeration. Possible hyperdensity involving the left M1 segment. IMPRESSION: 1. Possible left M1 thrombus. 2. Results study discussed with Dr. Jimenez 02/13/2020 at 4:34 PM Code CR
[2020-02-13 16:40] LABS: Hemoglobin 13.2 g/dL (14.0-18.0); Mean Corpuscular HGB CONC 33.9 g/dL (32.0-36.0); Mean Corpuscular Hemoglobin 36.6 pg (27.0-31.0); Platelet Count 142 thou/uL (130-400); RBC Distribution Width 13.7 % (11.5-14.5); Red Blood Cell (RBC) Count 3.61 mill/uL (4.70-6.10); White Blood Cell (WBC) Count 6.8 thou/uL (4.8-10.8)
[2020-02-13 16:41] LABS: #Eosinphils 0.4 thou/uL (0.0-0.7); #Lymphocytes 2.3 thou/uL (1.20-3.40); #Monocytes 0.5 thou/uL (0.11-0.59); #Neutrophils 3.5 thou/uL (1.40-6.50); %Basophils 0.5 % (0.0-1.0); %Eosinophils 5.3 % (0.0-10.0); %Monocytes 7.7 % (0.0-10.0); %Neutrophils 52.4 % (42.0-75.0)
[2020-02-13 16:47] LABS: INR-International Normal Ratio 1.2
[2020-02-13 16:55] LABS: ALT (SGPT) 25 U/L (8-55); AST (SGOT) 23 U/L (5-34); Albumin 3.4 g/dL (3.4-4.8); Alkaline Phosphatase 93 U/L (40-110); Anion Gap 16 mmol/L (10-20); BUN (Urea Nitrogen) 13 mg/dL (8.4-25.7); Bilirubin, Total 0.9 mg/dL (0.2-1.2); CK (CPK) 76 U/L (30-200); Calc. Creatinine Clearance 0 mL/min (70-130); Calcium 8.3 mg/dL (7.8-10.44); Carbon Dioxide 19 mmol/L (23-31); Chloride 109 mmol/L (98-107); Estimated GFR-MDRD 59; Globulin 3.5 g/dL (2.4-3.5); Glucose 123 mg/dL (83-110); Potassium 4.5 mmol/L (3.5-5.1); Protein, Total 6.9 g/dL (5.8-8.1); Sodium 139 mmol/L (136-145)
[2020-02-13 17:07] LABS: MDiff Complete? YES; Macrocytosis SLIGHT = 6-15 cells (100X) (0-5/hpf); Platelet Morphology Comment Appears Adequate; Polychromasia SLIGHT = 2-3 cells (100X) (0-2/hpf); Tear Drops SLIGHT = 2-5 cells (100X) (0-1/hpf)
[2020-02-13 17:16] LABS: CKMB 2.7 ng/mL (0-6.6)
[2020-02-13] MEDS ORDERED: Aspirin 300 MG Suppository ONE (17:45)
--- NOTE | 2020-02-13 19:31 | PDOC.HHP ---
Hospitalist HPI - History of Present Illness unresponsive History of Present Illness: PCP: Dr. Benavides The patient is a 89-year-old male with past medical history significant for COVID in September, atrial fibrillation not currently on anticoagulant, hypertension, and pacemaker placement. Patient arrived to the ER unresponsive as a level 1 stroke activation. He was last seen normal approximately at 4 PM which was 30 to 35 minutes prior to arrival. Upon arrival he was spastically moving his right upper and right lower extremities but not following commands. He did have a brief witnessed seizure and brief postictal state with apnea. Rgw-stmhr-tlab ventilations for approximately 2 to 3 minutes were completed and the patient began to have spontaneous respirations again along with a spastic movements of the right upper and right lower extremities. He was not deemed a TPA candidate due to the severity of his deficits including the seizure. Patient has a long history of atrial fibrillation he had recently been removed from his Eliquis as he kept falling at home and often hitting his head. Patient also has a history of COVID-19 back in September. Patient was seen as recently as January 19, 2020 for syncope. During that stay he was found to have bradycardia in the 30s and sinus pauses up to 3.4 seconds long. The pacemaker was placed at that time. Up until the time he was found unresponsive today in the dining area he was deemed to be at his baseline and doing well. ED Course: VITAL SIGNS Kar[facility] Feb 13, 2020 16:30 SHARIFA Castro Sarah BP: 145/84, Pulse: 77, Resp: 20, Pain: UTR, O2 sat: 96 on (Room Air), Time: 02/13/2020 16:30. VITAL SIGNS Karma Feb 13, 2020 16:48 SHARIFA Castro Sarah BP: 167/102, MAP: 123, Pulse: 70, Resp: 22, Temp: 97.1 (Axillary), Pain: utr, O2 sat: 97 on (Room Air), Time: 02/13/2020 16:48. VITAL SIGNS Karma Feb 13, 2020 17:31 SHARIFA Patton Luke BP: 176/111, Pulse: 70, Resp: 22, Pain: utr, O2 sat: 96 on (2L Oxygen), Time: 02/13/2020 17:31. VITAL SIGNS [facility] Feb 13, 2020 17:00 SHARIFA Patton Luke O2 sat: 88 on (Room Air), Time: 02/13/2020 17:00. VITAL SIGNS Karma Feb 13, 2020 17:00 SHARIFA Patton Luke Temp: 97.5 (Rectal), Time: 02/13/2020 17:00. VITAL SIGNS Karma Feb 13, 2020 18:52 SHARIFA Patton Luke BP: 181/111, Pulse: 80, Resp: 20, Pain: utr, O2 sat: 94 on (2L Oxygen), Time: 02/13/2020 18:52. Today in the ER they completed an EKG, lab work, neuro exams, CT nikolski of [facility] with contrast, and brain CT. He was given aspirin 300 mg rectally. Hospitalist ROS - Review of Systems ROS unobtainable: due to mental status - Medication Medications: Allergies: avocado (Unconfirmed), lisinopril (bulk), lisinopril (Unconfirmed), Sulfa (Sulfonamide Antibiotics) Current Medications: aspirin oral TABLET : Strength - 81 mg : ORAL Patient Dose: 1 tab(s) Oral once a day. escitalopram oxalate TABLET : Strength - 10 mg : ORAL Patient Dose: once a day. atorvastatin tablet : Strength - 20 mg : ORAL Patient Dose: 1 tab(s) Oral once a day (at bedtime). carvedilol tablet : Strength - 6.25 mg : ORAL Patient Dose: 0.5 tab(s) Oral 2 times a day. fluticasone propionate nasal spray,suspension : Strength - 50 mcg/actuation : NASAL Patient Dose: 1 spray(s) Nares Both once a day. levothyroxine oral TABLET : Strength - 25 mcg : ORAL Patient Dose: 50 mcg Oral once a day. folic acid oral TABLET : Strength - 1 mg : ORAL Patient Dose: 1 tab(s) Oral once a day. Klor-Con M10 TABLET, EXT RELEASE, PARTICLES/CRYSTALS : Strength - 10 mEq : ORAL Patient Dose: 1 tab(s) Oral once a day. Vitamin B-12 oral TABLET : Strength - 1,000 mcg : ORAL Patient Dose: once a day. nystatin topical ointment : Strength - 100,000 unit/gram : TOPICAL Patient Dose: 1 leticia Transdermal once a day. terbinafine HCl topical cream : Strength - 1 % : TOPICAL Patient Dose: 1 leticia once a day.on toe nail. Hospitalist History - Past Medical History Source: family, RN notes reviewed, old records Cardiac: reports: AFIB, CHF, HTN Renal/: reports: Chronic renal failure - Past Surgical History Past Surgical History: reports: Appendectomy, Total Hip Replacement - Family History Family History: reports: no pertinent history - Social History Smoking Status: Never smoker Alcohol: reports: Occassional Drugs: reports: none Living Situation: [facility] ([facility]) - Exam Eye: PERRL Eye - other findings: Deviated to the left ENT: dry oral mucosa Heart: RRR, normal peripheral pulses Heart - other findings: Pacemaker present Respiratory: CTAB, no wheezes, no rales Gastrointestinal: soft, non-tender, non-distended, normal bowel sounds Neurological: hemiplegia (Right side), speech deficit (Aphasic) Musculoskeletal - other findings: Spastic movements to right lower extremity, follows commands with left extr Hospitalist Results - Labs Result Diagrams: 02/13/20 16:30 02/13/20 16:30 Lab results: WBC 6.8 thou/uL (4.8-10.8) 02/13/20 16:30 Hgb 13.2 g/dL (14.0-18.0) L 02/13/20 16:30 Hct 39.0 % (42.0-52.0) L 02/13/20 16:30 MCV 108.0 fL (78.0-98.0) H 02/13/20 16:30 Plt Count 142 thou/uL (130-400) 02/13/20 16:30 Neutrophils % 52.4 % (42.0-75.0) 02/13/20 16:30 Sodium 139 mmol/L (136-145) 02/13/20 16:30 Potassium 4.5 mmol/L (3.5-5.1) 02/13/20 16:30 Chloride 109 mmol/L (98-107) H 02/13/20 16:30 Carbon Dioxide 19 mmol/L (23-31) L 02/13/20 16:30 BUN 13 mg/dL (8.4-25.7) 02/13/20 16:30 Creatinine 1.17 mg/dL (0.7-1.3) 02/13/20 16:30 Glucose 123 mg/dL (83-110) H 02/13/20 16:30 Calcium 8.3 mg/dL (7.8-10.44) 02/13/20 16:30 Total Bilirubin 0.9 mg/dL (0.2-1.2) 02/13/20 16:30 AST 23 U/L (5-34) 02/13/20 16:30 ALT 25 U/L (8-55) 02/13/20 16:30 Alkaline Phosphatase 93 U/L (40-110) 02/13/20 16:30 Creatine Kinase 76 U/L (30-200) 02/13/20 16:30 CK-MB (CK-2) 2.7 ng/mL (0-6.6) 02/13/20 16:30 Troponin I 0.100 ng/mL (< 0.028) H 02/13/20 16:30 Serum Total Protein 6.9 g/dL (5.8-8.1) 02/13/20 16:30 Albumin 3.4 g/dL (3.4-4.8) 02/13/20 16:30 - EKG Interpretation EKG: V pace 71 bpm - Radiology Interpretation CT scan - head Status: report reviewed by me Additional Comment: Exam: Head CT without contrast HISTORY: Level 1 stroke. Right-sided weakness and facial droop. Blurred oriented x0 COMPARISON: 03/24/2019 FINDINGS: Hemorrhage: No intraparenchymal hemorrhage or extra-axial hematoma. Brain parenchyma: Cortical asif-white matter differentiation is preserved. No mass effect or midline shift. Basilar cisterns are patent.Chronic small vessel ischemic changes of the white matter Ventricular system: Ventricles and sulci are patent and symmetric. Calvarium: Intact. Sinuses and mastoid air cells: Adequate aeration. Possible hyperdensity involving the left M1 segment. IMPRESSION: 1. Possible left M1 thrombus. 2. Results study discussed with Dr. Jimenez 02/13/2020 at 4:34 PM Other Status: report reviewed by me Additional Comment: EXAM: CT angiogram head and neck with IV contrast and 3-D reconstructions PROVIDED CLINICAL HISTORY: Right-sided weakness and facial droop. COMPARISON: Noncontrast CT head obtained just prior to this exam. FINDINGS: Vascular calcifications are seen in the aortic arch. The innominate artery and bilateral subclavian a rteries are patent. The bilateral common carotid arteries are patent. There is mild atherosclerotic plaque and calcificat ions at the right carotid artery bifurcation with moderate narrowing involving the origin and proximal right external carotid artery. Mild narrowing is seen involving the proximal right internal carotid artery, the degree of narrowing is less than 50%. There are filling defects seen within the proximal left ICA with diminished enhancement of the proxim al left ICA, and the left ICA occludes at the C2-3 level. The left middle cerebral artery is also occluded. There is reconstitution of small M2 and M3 branches which are decreased in caliber. The right middle cerebral artery and anterior cerebral arteries are patent without focal stenosis or branch occlusion. There is mild narrowing involving the proximal right vertebral artery which is otherwise patent. Port ions of the cervical left vertebral artery are partially obscured due to adjacent very dense contrast within paravertebral veins. The left vertebral artery does appear overall patent. The basilar artery and right posterior cerebral artery are patent. There is mild atherosclerotic irregularity involving the proximal and mid left posterior cerebral artery without high-grade focal narrowing appreciated. No aneurysm is seen within the limitations of the technique of this exam. There is diminished attenuation involving the left insular cortex on this examination which was not appreciated on the recent noncontrasted CT scan examination, and this is suggestive of an acute infarction in the left MCA distribution. A moderate size right pleural effusion is partially imaged. This was not seen on chest x-ray on 01/20/2020. There is suggestion of minimal left pleural effusion present. A left subclavian single lead cardiac pacemaking device is noted in place. Mildly prominent right infraclavicular lymph nodes are seen with largest lymph node measuring 1.2 cm in short axis dimension. There is also a mild increase in number of mediastinal lymph nodes. Calcified precarinal lymph node is seen related to prior granulomatous disease. Degenerative changes are seen in the spine with prominent bridging osteophytes at multiple levels of the cervical and visualized upper thoracic spine. IMPRESSION: 1. Acute left MCA distribution infarction which is not appreciated on recent noncontrasted CT scan ex am. 2. Small amount of thrombus within the visualized proximal left ICA with eventu al occlusion of the cervical left ICA at the C2-3 level. There is also occlusion of the left middle cerebral artery with reconstitution of small left middle cerebral artery branches. 3. Mild (less than 50%) stenosis involving the right proximal internal carotid artery. 4. Incomplete imaging of a moderate size right pleural effusion. 5. Nonspecific mediastinal and right infraclavicular lymphadenopathy. Hospitalist H&P A/P - Problem (1) Acute ischemic left MCA stroke Code(s): I63.512 - CEREB INFRC D/T UNSP OCCLS OR STENOS OF LEFT MID CEREB ART Status: Acute (2) Chronic a-fib Code(s): I48.20 - CHRONIC ATRIAL FIBRILLATION, UNSPECIFIED Status: Chronic (3) HTN (hypertension) Code(s): I10 - ESSENTIAL (PRIMARY) HYPERTENSION Status: Chronic Qualifiers: (4) History of pacemaker Code(s): Z95.0 - PRESENCE OF CARDIAC PACEMAKER Status: Chronic - Plan Plan: Acute ischemic stroke Admit to inpatient stroke unit Neurology consult in a.m. Strict n.p.o. until evaluated by speech Stroke team consulted FLP in a.m. Monitor on telemetry May be unable to do MRI as patient has pacemaker, family to obtain information regarding type of pacemaker to see if it was compatible Very extensive discussion with family regarding the stroke and what may be expected over the next few days, patient's family very receptive and open to following patient's wishes which were previously stated in advanced directive. Hypertension Allow for permissive hypertension at this time PRN antihypertensives available if needed Monitor vital signs every 4 hours History of chronic atrial fibrillation with pacemaker placement Monitor on telemetry Patient had been on Eliquis for some time, however was recently taken off of it as he kept falling and hit his head several times VTE prophylaxis in place with Lovenox and GI prophylaxis in place with IV Pepcid Family very involved with care and wish to follow their father's wishes and advanced directives, may have palliative care team become involved to help guide family A copy of the patient's advanced directives have been placed in the chart CODE STATUS: DNAR Surrogate decision makers are the patient's children, Ramu
[2020-02-13 20:09] VITALS: BMI 29.0
[2020-02-13] MEDS ORDERED: Labetalol HCl 100 MG/20 ML VIAL SLOW IVP PRN (21:47)
[2020-02-13] MEDS ORDERED: hydrALAZINE 20 MG/ML VIAL SLOW IVP PRN (21:47)
[2020-02-13] MEDS: Sodium Chloride 0.9% 1,000 ML IV SCH (21:57)
[2020-02-14 04:50] LABS: #Eosinphils 0.1 thou/uL (0.0-0.7); #Lymphocytes 2.1 thou/uL (1.20-3.40); #Monocytes 0.5 thou/uL (0.11-0.59); #Neutrophils 5.3 thou/uL (1.40-6.50); %Basophils 0.5 % (0.0-1.0); %Eosinophils 1.8 % (0.0-10.0); %Monocytes 6.2 % (0.0-10.0); %Neutrophils 65.5 % (42.0-75.0); Hemoglobin 13.5 g/dL (14.0-18.0); Mean Corpuscular HGB CONC 32.8 g/dL (32.0-36.0); Mean Corpuscular Hemoglobin 35.7 pg (27.0-31.0); Mean Platelet Volume 9.2 fL (7.4-10.4); Platelet Count 152 thou/uL (130-400); RBC Distribution Width 13.7 % (11.5-14.5); Red Blood Cell (RBC) Count 3.78 mill/uL (4.70-6.10); White Blood Cell (WBC) Count 8.1 thou/uL (4.8-10.8)
[2020-02-14 05:10] LABS: Anion Gap 16 mmol/L (10-20); BUN (Urea Nitrogen) 13 mg/dL (8.4-25.7); Calc. Creatinine Clearance 55 mL/min (70-130); Calcium 8.2 mg/dL (7.8-10.44); Carbon Dioxide 19 mmol/L (23-31); Chloride 109 mmol/L (98-107); Cholesterol 101 mg/dl (< 200 Desired); Estimated GFR-MDRD 61; Glucose 120 mg/dL (83-110); HDL Cholesterol 25 mg/dL (>60 Neg Risk); LDL Cholesterol, Calculated 52 mg/dL; Potassium 4.6 mmol/L (3.5-5.1); Sodium 139 mmol/L (136-145); Triglycerides 122 mg/dL (Less than 150)
[2020-02-14] MEDS: Sodium Chloride 0.9% 1,000 ML IV SCH (05:32)
[2020-02-14] MEDS: Enoxaparin Sodium 40 MG/0.4 ML SYRINGE SC SCH (08:06)
[2020-02-14] MEDS: Aspirin 300 MG Suppository PR SCH (08:07)
[2020-02-14] MEDS: Famotidine/PF 20 mg/2ml Vial SLOW IVP SCH ×2 (09:16→21:07)
[2020-02-14 12:05] LABS: SARS-CoV-2 MS2 Positive; SARS-CoV-2 N Gene Negative; SARS-CoV-2 S Gene Negative; SARS-CoV-2 by NAA Not Detected (NotDetected); SARS-CoV-2 orf1ab Negative
--- NOTE | 2020-02-14 13:28 | CON ---
NEUROLOGY CONSULTATION DATE OF CONSULTATION: 02/14/2020 REASON FOR CONSULTATION: Stroke. HISTORY OF PRESENT ILLNESS: Mr. Humphrey Brown is an 89-year-old male with medical history significant for COVID in September 2019, atrial fibrillation, not currently on anticoagulant, hypertension, status post pacemaker placement, presented to the emergency room with unresponsiveness. He was last seen normal around 4 p.m. on 02/13/2020. Upon arrival to the emergency room, he was moving his right upper and lower extremities spontaneously, but not following command. Upon arrival to the emergency room, he was weak on the right upper and lower extremities and extremely unresponsive and not following command. He also had a brief witnessed seizure with postictal state and apnea. Because of the severity of neurological deficit, he has seizure on presentation. It was decided he was not a candidate for tPA. He also has longstanding history of atrial fibrillation and has recently been removed from [facility] because of risk of bleed since he has been having falls at home and hitting his head. The patient also has historyof syncope and he was last seen in December 2019. During that stay, he was found to have bradycardia, and pacemaker was placed. He was doing well till yesterday. REVIEW OF SYSTEMS: Unobtainable due to mental status. ALLERGIES: OKAY TO LISINOPRIL, SULFONAMIDE, AND ANTIBIOTICS. HOME MEDICATIONS: 1. Aspirin 81 mg daily. 2. Escitalopram oxalate 10 mg daily. 3. Atorvastatin 20 mg daily. 4. Carvedilol 6.25 mg twice daily. 5. Fluticasone 50 mcg one spray 6. Levothyroxine 25 mcg daily. 7. Folic acid one tab once a day. 8. Klor-Con 1 tab once a day. 9. Vitamin B12 1000 mcg once daily. 10. Nystatin 100,000 units/g one application transdermal once a day. 11. Terbinafine topical once a day. PAST MEDICAL HISTORY: Old records showed atrial fibrillation, congestive heart failure, hypertension, and chronic renal failure. PAST SURGICAL HISTORY: Appendectomy and total hip replacement. FAMILY HISTORY: No pertinent family history. SOCIAL HISTORY: The patient is a [place] [facility] resident. There is no documented history of smoking, alcohol, or illegal drug use. PHYSICAL EXAMINATION: VITAL SIGNS: Blood pressure 140/80, pulse 77, and respiratory rate 18. CVS: Regular rate and rhythm. Paced heart rate. HEENT: Normocephalic, atraumatic. CHEST: Clear. ABDOMEN: Soft. NEUROLOGIC: Mental status, the patient is extremely somnolent, does not follow commands, does not maintain eye contact. Open eyes to noxious stimuli. Cranial nerves; pupils 4 mm, round, and reactive to light. Left facial droop. Left gaze preference. Tongue midline. Corneals positive. Cough positive. Motor; muscle tone and bulk were decreased in the right upper and lower extremities. Right hemiplegia 1/5 spontaneously moving left upper and lower extremities. Speech aphasic. Cerebellar did not cooperate with the testing. Gait deferred due to the patient's safety reason and mental status. DATA REVIEWED: Reviewed the labs which significant for anemia, hemoglobin 13.2, hematocrit 39, and hyperglycemia 123. Lab results: WBC 6.8 thou/uL (4.8-10.8) 02/13/20 16:30 Hgb 13.2 g/dL (14.0-18.0) L 02/13/20 16:30 Hct 39.0 % (42.0-52.0) L 02/13/20 16:30 MCV 108.0 fL (78.0-98.0) H 02/13/20 16:30 Plt Count 142 thou/uL (130-400) 02/13/20 16:30 Neutrophils % 52.4 % (42.0-75.0) 02/13/20 16:30 Sodium 139 mmol/L (136-145) 02/13/20 16:30 Potassium 4.5 mmol/L (3.5-5.1) 02/13/20 16:30 Chloride 109 mmol/L (98-107) H 02/13/20 16:30 Carbon Dioxide 19 mmol/L (23-31) L 02/13/20 16:30 BUN 13 mg/dL (8.4-25.7) 02/13/20 16:30 Creatinine 1.17 mg/dL (0.7-1.3) 02/13/20 16:30 Glucose 123 mg/dL (83-110) H 02/13/20 16:30 Calcium 8.3 mg/dL (7.8-10.44) 02/13/20 16:30 Total Bilirubin 0.9 mg/dL (0.2-1.2) 02/13/20 16:30 AST 23 U/L (5-34) 02/13/20 16:30 ALT 25 U/L (8-55) 02/13/20 16:30 Alkaline Phosphatase 93 U/L (40-110) 02/13/20 16:30 Creatine Kinase 76 U/L (30-200) 02/13/20 16:30 CK-MB (CK-2) 2.7 ng/mL (0-6.6) 02/13/20 16:30 Troponin I 0.100 ng/mL (< 0.028) H 02/13/20 16:30 Serum Total Protein 6.9 g/dL (5.8-8.1) 02/13/20 16:30 Albumin 3.4 g/dL (3.4-4.8) 02/13/20 16:30 - EKG Interpretation EKG: V pace 71 bpm - Radiology Interpretation CT scan - head Status: report reviewed by me Additional Comment: Exam: Head CT without contrast HISTORY: Level 1 stroke. Right-sided weakness and facial droop. Blurred oriented x0 COMPARISON: 03/24/2019 FINDINGS: Hemorrhage: No intraparenchymal hemorrhage or extra-axial hematoma. Brain parenchyma: Cortical asif-white matter differentiation is preserved. No mass effect or midline shift. Basilar cisterns are patent.Chronic small vessel ischemic changes of the white matter Ventricular system: Ventricles and sulci are patent and symmetric. Calvarium: Intact. Sinuses and mastoid air cells: Adequate aeration. Possible hyperdensity involving the left M1 segment. IMPRESSION: 1. Possible left M1 thrombus. 2. Results study discussed with Dr. Jimenez 02/13/2020 at 4:34 PM Other Status: report reviewed by me Additional Comment: EXAM: CT angiogram head and neck with IV contrast and 3-D reconstructions PROVIDED CLINICAL HISTORY: Right-sided weakness and facial droop. COMPARISON: Noncontrast CT head obtained just prior to this exam. FINDINGS: Vascular calcifications are seen in the aortic arch. The innominate artery and bilateral subclavian a rteries are patent. The bilateral common carotid arteries are patent. There is mild atherosclerotic plaque and calcificat ions at the right carotid artery bifurcation with moderate narrowing involving the origin and proximal right external carotid artery. Mild narrowing is seen involving the proximal right internal carotid artery, the degree of narrowing is less than 50%. There are filling defects seen within the proximal left ICA with diminished enhancement of the proxim al left ICA, and the left ICA occludes at the C2-3 level. The left middle cerebral artery is also occluded. There is reconstitution of small M2 and M3 branches which are decreased in caliber. The right middle cerebral artery and anterior cerebral arteries are patent without focal stenosis or branch occlusion. There is mild narrowing involving the proximal right vertebral artery which is otherwise patent. Port ions of the cervical left vertebral artery are partially obscured due to adjacent very dense contrast within paravertebral veins. The left vertebral artery does appear overall patent. The basilar artery and right posterior cerebral artery are patent. There is mild atherosclerotic irregularity involving the proximal and mid left posterior cerebral artery without high-grade focal narrowing appreciated. No aneurysm is seen within the limitations of the technique of this exam. There is diminished attenuation involving the left insular cortex on this examination which was not appreciated on the recent noncontrasted CT scan examination, and this is suggestive of an acute infarction in the left MCA distribution. A moderate size right pleural effusion is partially imaged. This was not seen on chest x-ray on 01/20/2020. There is suggestion of minimal left pleural effusion present. A left subclavian single lead cardiac pacemaking device is noted in place. Mildly prominent right infraclavicular lymph nodes are seen with largest lymph node measuring 1.2 cm in short axis dimension. There is also a mild increase in number of mediastinal lymph nodes. Calcified precarinal lymph node is seen related to prior granulomatous disease. Degenerative changes are seen in the spine with prominent bridging osteophytes at multiple levels of the cervical and visualized upper thoracic spine. IMPRESSION: 1. Acute left MCA distribution infarction which is not appreciated on recent noncontrasted CT scan ex am. 2. Small amount of thrombus within the visualized proximal left ICA with eventual occlusion of the cervical left ICA at the C2-3 level. There is also occlusion of the left middle cerebral artery with reconstitution of small left middle cerebral artery branches. 3. Mild (less than 50%) stenosis involving the right proximal internal carotid artery. 4. Incomplete imaging of a moderate size right pleural effusion. 5. Nonspecific mediastinal and right infraclavicular lymphadenopathy. ASSESSMENT AND PLAN: (1) Acute ischemic left MCA stroke Code(s): I63.512 - CEREB INFRC D/T UNSP OCCLS OR STENOS OF LEFT MID CEREB ART Status: Acute (2) Chronic a-fib Code(s): I48.20 - CHRONIC ATRIAL FIBRILLATION, UNSPECIFIED Status: Chronic (3) HTN (hypertension) Code(s): I10 - ESSENTIAL (PRIMARY) HYPERTENSION Status: Chronic Qualifiers: (4) History of pacemaker Code(s): Z95.0 - PRESENCE OF CARDIAC PACEMAKER Status: Chronic Mr. Brown is an 89-year-old male with history significant for chronic atrial fibrillation, hypertension, status post pacemaker placement, presented with large vessel stroke involving the left middle cerebral artery territory and one thrombus. The patient determined not to be a candidate of tPA because of significant neurological deficits, large vessel stroke, most likely secondary to uncontrolled atrial fibrillation. N.p.o. until cleared by Speech and neuro checks every 4 hours. Consider aspirin for secondary stroke prevention and high-intensity statin once cleared by Speech. Continue home medication. Permissive control of blood pressure at this time. Strict control of the blood glucose, telemetry, and consider Cardiology input. EEG completed. We will follow up on the results. Consider starting Keppra 500 mg twice daily since the patient has a large vessel stroke and also seizure on initial presentation. Continue medical management per primary team, PT/OT/Speech. We will continue to follow. Thank you for the consult. Case was discussed in detail with the patient's daughter at bedside and also with son on the phone. Thank you for the consult. Job ID: [id number]
--- NOTE | 2020-02-14 14:03 | PDOC.HOSPP ---
- Subjective Encounter Date: 02/14/20 Subjective: The patient remains altered. He does not follow commands. - Objective Vital Signs & Weight: Vital Signs (12 hours) Temp Pulse Resp BP BP BP Pulse Ox 02/14/20 11:54 97.9 F 73 12 178/98 H 93 L 02/14/20 11:49 178/98 H 167/96 H 02/14/20 08:05 96 02/14/20 07:32 97.2 F L 73 20 169/99 H 96 02/14/20 03:54 97.4 F L 70 22 H 155/87 H 94 L Weight Admit Weight 190 lb 9.6 oz Weight 190 lb 9.6 oz I&O: 02/13/20 02/14/20 02/15/20 06:59 06:59 06:59 Intake Total 927 Balance 927 Result Diagrams: 02/14/20 04:34 02/14/20 04:34 Hospitalist ROS - Medication Medications: Active Medications Generic Name Dose Route Start Last Admin Trade Name Freq PRN Reason Stop Dose Admin Aspirin 300 mg 02/14/20 09:00 02/14/20 08:07 Aspirin 300 Mg Suppository ND 300 mg DAILY DAVE Administration Enoxaparin Sodium 40 mg 02/14/20 09:00 02/14/20 08:06 Enoxaparin Sodium 40 Mg/0.4 Ml Syringe SC 40 mg 0900 DAVE Administration Famotidine 20 mg 02/14/20 09:00 02/14/20 09:16 Famotidine/Pf 20 Mg/2ml Vial SLOW IVP 20 mg Q12HR DAVE Administration - Exam General Appearance: awake alert ENT: normocephalic atraumatic Neck: supple, no JVD Heart: RRR Respiratory: normal chest expansion, no tachypnea Extremities: no cyanosis, no clubbing Neurological: hemiplegia Hosp A/P (1) Acute ischemic left MCA stroke Code(s): I63.512 - CEREB INFRC D/T UNSP OCCLS OR STENOS OF LEFT MID CEREB ART Status: Acute (2) History of pacemaker Code(s): Z95.0 - PRESENCE OF CARDIAC PACEMAKER Status: Chronic (3) 3-vessel CAD Status: Chronic (4) Cardiomyopathy Code(s): I42.9 - CARDIOMYOPATHY, UNSPECIFIED Status: Chronic (5) Chronic a-fib Code(s): I48.20 - CHRONIC ATRIAL FIBRILLATION, UNSPECIFIED Status: Chronic - Plan Dense right hemiparesis with complete aphasia. Patient could also be in a post ictal state. EEG is underway. Large embolic CVA. The patient's anticoagulation was discontinued a few weeks ago due to recurrent falls. No TPA was administered due to the large involvement of the cerebral hemisphere risking hemorrhagic transformation in addition to the patient's advanced age and comorbidities. Continue to follow the progression of his mental status. N.p.o. He will likely need part of care consultation. Continue current medications.
[2020-02-14] MEDS ORDERED: Scopolamine 1.5 mg/72 hour Patch TD SCH (23:59)
[2020-02-15 04:42] LABS: #Basophils 0.1 thou/uL (0.0-0.2); #Lymphocytes 2.5 thou/uL (1.20-3.40); #Monocytes 0.9 thou/uL (0.11-0.59); %Basophils 0.4 % (0.0-1.0); %Eosinophils 0.3 % (0.0-10.0); %Lymphocytes 21.6 % (21.0-51.0); %Monocytes 7.8 % (0.0-10.0); %Neutrophils 69.8 % (42.0-75.0); Hemoglobin 14.1 g/dL (14.0-18.0); Mean Corpuscular HGB CONC 33.8 g/dL (32.0-36.0); Mean Corpuscular Hemoglobin 36.4 pg (27.0-31.0); Mean Platelet Volume 9.7 fL (7.4-10.4); Platelet Count 169 thou/uL (130-400); RBC Distribution Width 14.2 % (11.5-14.5); Red Blood Cell (RBC) Count 3.87 mill/uL (4.70-6.10); White Blood Cell (WBC) Count 11.5 thou/uL (4.8-10.8)
[2020-02-15 05:02] LABS: Anion Gap 17 mmol/L (10-20); BUN (Urea Nitrogen) 17 mg/dL (8.4-25.7); Calc. Creatinine Clearance 51 mL/min (70-130); Calcium 8.6 mg/dL (7.8-10.44); Carbon Dioxide 16 mmol/L (23-31); Chloride 110 mmol/L (98-107); Estimated GFR-MDRD 56; Glucose 140 mg/dL (83-110); Potassium 4.7 mmol/L (3.5-5.1); Sodium 138 mmol/L (136-145)
[2020-02-15] MEDS: Famotidine/PF 20 mg/2ml Vial SLOW IVP SCH (08:54)
[2020-02-15] MEDS: Aspirin 300 MG Suppository PR SCH (08:54)
[2020-02-15] MEDS: Enoxaparin Sodium 40 MG/0.4 ML SYRINGE SC SCH (08:54)
[2020-02-15] MEDS ORDERED: Morphine 2 MG/ML VIAL SLOW IVP PRN (09:53)
[2020-02-15] MEDS ORDERED: Lorazepam 2 MG/ML VIAL SLOW IVP PRN (09:54)
--- NOTE | 2020-02-15 13:31 | PDOC.HOSPP ---
- Subjective Subjective: Was seen examined at bedside. Patient remains encephalopathic, not able to follow command. No significant change in mental status since yesterday per nursing staff. I had a long discussion with his next of kin, daughter, Kevin Lopes, with regarding to goals of care. She would like to respect his wishes, status no feeding tube or any aggressive heroic measure. And would like to transition to comfort care. Palliative care team is consulted. - Objective Vital Signs & Weight: Vital Signs (12 hours) Temp Pulse Resp BP BP Pulse Ox 02/15/20 13:13 166/91 H 02/15/20 11:48 98.2 F 69 28 H 187/63 H 97 02/15/20 08:50 172/94 H 02/15/20 08:38 98 02/15/20 08:34 23 H 98 02/15/20 08:00 98.2 F 73 30 H 175/101 H 91 L 02/15/20 04:00 99.5 F 70 26 H 173/98 H 99 Weight Admit Weight 190 lb 9.6 oz Weight 190 lb 9.6 oz I&O: 02/14/20 02/15/20 02/16/20 06:59 06:59 06:59 Intake Total 927 Balance 927 Result Diagrams: 02/15/20 04:30 02/15/20 04:30 Hospitalist ROS - Medication Medications: Active Medications Generic Name Dose Route Start Last Admin Trade Name Freq PRN Reason Stop Dose Admin Aspirin 300 mg 02/14/20 09:00 02/15/20 08:54 Aspirin 300 Mg Suppository W[place] 300 mg DAILY DAVE Administration Enoxaparin Sodium 40 mg 02/14/20 09:00 02/15/20 08:54 Enoxaparin Sodium 40 Mg/0.4 Ml Syringe SC 40 mg 0900 DAVE Administration Famotidine 20 mg 02/14/20 09:00 02/15/20 08:54 Famotidine/Pf 20 Mg/2ml Vial SLOW IVP 20 mg Q12HR DAVE Administration Scopolamine 1.5 mg 02/14/20 23:59 02/15/20 00:12 Scopolamine 1.5 Mg/72 Hour Patch TD 1.5 mg Q3D DAVE Administration - Exam General Appearance: NAD, ill appearing General - other findings: not follow commands ENT: normocephalic atraumatic Neck: supple Respiratory: rhonchi Gastrointestinal: soft, non-tender Extremities: no edema Skin: normal turgor Neurological: hemiplegia Musculoskeletal: generalized weakness Psychiatric: lethargic Hosp A/P - Plan The patient is unfortunate 89 years old gentleman, who has significant past medical history of chronic atrial fib, no longer is on anticoagulation due to recurrent falls, hypertension, CAD, who was admitted for acute left MCA stroke. Acute Left MCA stroke - resulted with right hemiparesis and aphasia --After discussed with family, will transition to comfort cares --Palliative care and CM consult to arrange hospice service Acute encephalopathy secondary to CVA --supportive cares AFib - not on AC d/t recurrent fall --rate controlled. hx of pacer placement Hx of CAD
--- NOTE | 2020-02-15 17:00 | DIS ---
DATE OF ADMISSION: 02/13/2020 DATE OF DISCHARGE: 02/15/2020 DISCHARGE DIAGNOSES: 1. Acute left MCA stroke. 2. Acute encephalopathy secondary to CVA. 3. Atrial fibrillation. 4. HTN CONSULTATION: Neurology, Dr. Kramer. PROCEDURE: None. LABORATORY DATA AND IMAGING STUDIES: WBC 11.5, hemoglobin 14.1, hematocrit 41.8, platelets 169. INR 1.2. Chemistry; sodium 138, potassium 4.7, chloride is 110, carbon dioxide 16, anion gap 17, BUN 17, creatinine is 1.22. LDL 52. AST and ALT within normal limits. Brain CT, possible left M1 thrombus. CTA of the head and neck, acute left MCA distribution infarction, which is not appreciated on the recent noncontrast CT. A small amount of thrombus within the visualized proximal left ICA with eventual occlusions of the cervical left ICA at the C2-C3 level. There is also occlusion of the left MCA with reconstitution of small left MCA artery branches. HISTORY OF PRESENT ILLNESS AND BRIEF HOSPITAL COURSE: The patient is an unfortunate 89-year-old gentleman, who has significant past medical history of COVID in September, atrial fibrillation, not on anticoagulation due to recurrent falls, hypertension, history of pacemaker placement, who presented to the ED with unresponsiveness, level 1 stroke was activated. He was deemed not a candidate for tPA. He was subsequently admitted to Hospitalist Service for further management. The patient unfortunately had no neurologic recovery, and he remained encephalopathic. He does not follow commands. We have discussed with family members with regard to the goal of care. The patient is DNR. I had a long discussion with his daughter, Ms. Kevin Lopes, she stated that she would like to respect her father's wishes with regard to no heroic measures as well as no PEG tube placement or keep him "artificially alive." For that reason, after discussion, we are in agreement to transition him to comfort cares. Palliative Care Team was consulted to arrange hospice. At this time, the patient will be transferred to facility for comfort care. DISPOSITION: Hospice facility. ACTIVITY: As tolerated. DIET: As tolerated. PHYSICAL EXAMINATION: VITAL SIGNS: Temperature is 98.4, pulse 82, he is saturating on room air 94%, blood pressure 165/96. GENERAL APPEARANCE: The patient is lethargic, unresponsive, not following commands. HEENT: Normocephalic and atraumatic. Mucous membranes moist. NECK: Supple. No lymphadenopathy. No JVD. CARDIOVASCULAR: Irregularly irregular. PULMONOLOGY: Clear to auscultation bilaterally. ABDOMEN: Soft, nontender, nondistended. MUSCULOSKELETAL: No edema or swelling. NEUROLOGIC: The patient is unresponsive, not following commands. DISCHARGE MEDICATIONS: The patient will be transitioned to comfort care, we will defer to Hospice Service with regard to further management in terms of medications to keep the patient comfortable. PRIMARY CARE PHYSICIAN: Dr. Benavides. Thank you for allowing us to participate in this patient's care. Discharge time spent, 35 minutes. Job ID: [id number] MTDD
[2020-02-15 22:10] VITALS: BP 176/92; TEMP 100.2
--- NOTE | 2020-02-17 08:21 | EEG ---
DATE OF SERVICE: 02/15/2020 ATTENDING PHYSICIAN: Camilla Kramer MD This EEG was performed using Temporal [employer] video with 24 disc electrodes. This was an extended 2 hours 6 minutes of inpatient video EEG recording.Digital analysis for the EEG was done for spike and seizure detection which did not reveal any abnormalities. BACKGROUND: The posterior background rhythm was not observed. HYPERVENTILATION: Not performed. PHOTIC STIMULATION: Not performed. SLEEP: No stage change was observed. ELECTROENCEPHALOGRAM DIAGNOSES: 1. Generalized irregular theta activity, left greater than right. 2. Absence of posterior background rhythm. CLINICAL INTERPRETATION: This EEG is consistent with focal cerebral dysfunction in the left cerebral hemisphere. There is also evidence of moderate generalized nonspecific cerebral dysfunction. Job ID: [id number] [facility]
--- NOTE | 2020-02-19 15:28 | CT ---
EXAM: CT angiogram head and neck with IV contrast and 3-D reconstructions PROVIDED CLINICAL HISTORY: Right-sided weakness and facial droop. COMPARISON: Noncontrast CT head obtained just prior to this exam. FINDINGS: Vascular calcifications are seen in the aortic arch. The innominate artery and bilateral subclavian a rteries are patent. The bilateral common carotid arteries are patent. There is mild atherosclerotic plaque and calcificat ions at the right carotid artery bifurcation with moderate narrowing involving the origin and proximal right external carotid artery. Mild narrowing is seen involving the proximal right internal carotid artery, the degree of narrowing is less than 50%. There are filling defects seen within the proximal left ICA with diminished enhancement of the proxim al left ICA, and the left ICA occludes at the C2-3 level. The left middle cerebral artery is also occluded. There is reconstitution of small M2 and M3 branches which are decreased in caliber. The right middle cerebral artery and anterior cerebral arteries are patent without focal stenosis or branch occlusion. There is mild narrowing involving the proximal right vertebral artery which is otherwise patent. Port ions of the cervical left vertebral artery are partially obscured due to adjacent very dense contrast within paravertebral veins. The left vertebral artery does appear overall patent. The basila r artery and right posterior cerebral artery are patent. There is mild atherosclerotic irregularity involving the proximal and mid left posterior cerebral artery without high-grade focal narrowing appr eciated. No aneurysm is seen within the limitations of the technique of this exam. There is diminished attenuation involving the left insular cortex on this examination which was not a ppreciated on the recent noncontrasted CT scan examination, and this is suggestive of an acute infarction in the left MCA distribution. A moderate size right pleural effusion is partially imaged. This was not seen on chest x-ray on 2019. There is suggestion of minimal left pleural effusion present. A left subclavian single lead cardiac pacemaking device is noted in place. Mildly prominent right infraclavicular lymph nodes are seen with largest lymph node measuring 1.2 cm in short axis dimension. There is also a mild increase in number of mediastinal lymph nodes. Calcified precarinal lymph node is seen related to prior granulomatous disease. Degenerative changes are seen in the spine with prominent bridging osteophytes at multiple levels of the cervical and visualized upper thoracic spine. IMPRESSION: 1. Acute left MCA distribution infarction which is not appreciated on recent noncontrasted CT scan ex am. 2. Small amount of thrombus within the visualized proximal left ICA with eventual occlusion of the ce rvical left ICA at the C2-3 level. There is also occlusion of the left middle cerebral artery with reconstitution of small left middle cerebral artery branches. 3. Mild (less than 50%) stenosis involving the right proximal internal carotid artery. 4. Incomplete imaging of a moderate size right pleural effusion. 5. Nonspecific mediastinal and right infraclavicular lymphadenopathy. 6. These findings were discussed with Dr. Jimenez in the emergency department on 02/13/2020 at 1649 urs. Transcribed Date/Time: 02/19/2020 3:27 PM
== END 2020-02-15 20:35 | disposition hospice, inpatient (51) | DRG 65 ==
LOC: ERS 16:28 → 2SE 17:32
PROVIDERS: ADMIT Family Medicine; ATTEND Family Medicine
DX: I63.312 Cerebral infarction due to thrombosis of left middle cerebral artery (principal); G93.49 Other encephalopathy; I13.0 Hypertensive heart and chronic kidney disease with heart failure and stage 1 through stage 4 chronic kidney disease, or unspecified chronic kidney disease; I48.20 Chronic atrial fibrillation, unspecified; I42.9 Cardiomyopathy, unspecified; G81.91 Hemiplegia, unspecified affecting right dominant side; Z66 Do not resuscitate; Z20.828 Contact with and (suspected) exposure to other viral communicable diseases; Z51.5 Encounter for palliative care; R47.01 Aphasia; E03.9 Hypothyroidism, unspecified; I25.10 Atherosclerotic heart disease of native coronary artery without angina pectoris; R29.6 Repeated falls; C61 Malignant neoplasm of prostate; N18.2 Chronic kidney disease, stage 2 (mild); I50.9 Heart failure, unspecified; I63.542 Cerebral infarction due to unspecified occlusion or stenosis of left cerebellar artery; Z96.641 Presence of right artificial hip joint; Z95.0 Presence of cardiac pacemaker; Z79.01 Long term (current) use of anticoagulants; Z88.2 Allergy status to sulfonamides; Z88.8 Allergy status to other drugs, medicaments and biological substances; Z90.49 Acquired absence of other specified parts of digestive tract
CPT/HCPCS: 36415; 70450; 70496; 70498; 80048; 80053; 80061; 82550; 82553; 84484; 85025; 85610; 85730; 87635; 93005; 95712; 95816; 95819; 95957; J1650; Q9967; S0028; U0003